=== PATIENT | female | born 1980 | race Caucasian/White ===

== ENCOUNTER 2017-10-03 17:38 | Emergency (ER) | payer OTHER ==
[2017-10-03 18:56] LABS: Urine Blood NEGATIVE (NEG); Urine Glucose NEGATIVE (NEG); Urine Protein NEGATIVE (NEG); Urine Specific Gravity 1.015 (1.005-1.030)
[2017-10-03] MEDS ORDERED: NA CHLORIDE 0.9% 1,000 ML ONE ×2 (18:58→22:35)
[2017-10-03] MEDS ORDERED: FENTANYL CITR 100 MCG/2 ML ONE (18:58)
[2017-10-03] MEDS ORDERED: ONDANSETRON 4 MG/2 ML VIAL ONE (18:58)
--- NOTE | 2017-10-03 19:01 | RAD REPORT ---
EXAM DESCRIPTION: VASCarotid Artery Bilateral10/03/2017 6:47 pm CLINICAL HISTORY: Syncope COMPARISON: None FINDINGS: The velocity of the right internal carotid artery equals 119 cm/sec. The right ICA/CCA rat io 1.2 The velocity of the left internal carotid artery equals 104 cm/sec. The left ICA/CCA ratio 1 Plaque is not visualized within the carotid arteries The vertebral arteries demonstrate antegrade flow IMPRESSION: Unremarkable exam
[2017-10-03 19:05] LABS: Absolute Lymphocytes (CBC) 2.9 K/uL (0.7-4.9); Absolute Monocytes 0.7 K/uL (0.1-1.3); Absolute Neutrophil 5.2 K/uL (1.8-8.0); Basophils % 0.3 % (0-1.3); Eosinophils % 2.3 % (0-4.4); Hematocrit 40.7 % (36.0-45.0); MCH 28.6 pg (27.0-35.0); MCV 82.9 fL (80-100); MPV 7.8 fL (7.6-11.3); RBC Red Blood Cell Count 4.91 M/uL (3.86-4.86)
--- NOTE | 2017-10-03 19:09 | RAD REPORT ---
EXAM DESCRIPTION: Cammy Single View10/03/2017 7:01 pm CLINICAL HISTORY: cough COMPARISON: 2008 FINDINGS: The lungs appear clear of acute infiltrate. The heart is normal size IMPRESSION: No acute abnormalities displayed
[2017-10-03 19:15] LABS: Protime INR 0.97
[2017-10-03 19:17] LABS: Bicarbonate 28 mEq/L (21-31); Glucose Level 107 mg/dL (65-120); Potassium 3.6 mEq/L (3.6-5.0); Sodium Level 137 mEq/L (135-145)
--- NOTE | 2017-10-03 19:20 | RAD REPORT ---
EXAM DESCRIPTION: CT - Head Brain Wo Cont - 10/03/2017 7:07 pm CLINICAL HISTORY: Headache/syncope COMPARISON: None. TECHNIQUE: Computed axial tomography of the head was obtained. IV contrast was not requested. All CT scans are performed using dose optimization technique as appropriate and may include automated exposure control or mA/KV adjustment according to patient size. FINDINGS: An intracranial bleed is not seen . The ventricles are normal in caliber. No extra-axial fluid collection is noted. Fluid within the sinuses/ mastoids is not seen. IMPRESSION: No acute intracranial abnormality is seen. If patient's symptoms persist MRI of the bra in would be recommended.
[2017-10-03 19:24] LABS: ALT/SGPT 22 IU/L (10-60); AST/SGOT 22 IU/L (10-42); Albumin 4.1 g/dL (3.2-5.5); Alkaline Phosphatase 80 IU/L (42-121); BUN Blood Urea Nitrogen 14 mg/dL (6-20); Bilirubin Direct < 0.1 mg/dL (0-0.2); Bilirubin Total 0.3 mg/dL (0.3-1.2); Creatine Phosphokinase 98 IU/L (22-269); Magnesium 1.9 mg/dL (1.8-2.5); Protein, Total 7.7 g/dL (6.0-8.3)
--- NOTE | 2017-10-03 19:32 | RAD REPORT ---
EXAM DESCRIPTION: CTHead angio10/03/2017 7:13 pm CLINICAL HISTORY: Syncope/headache COMPARISON: None TECHNIQUE: CT angiogram of the head was obtained. 50 cc Isovue 370 was intravenously. Coronal and sa gittal reconstruction was performed. All CT scans are performed using dose optimization technique as appropriate and may include automated exposure control or mA/KV adjustment according to patient size. FINDINGS: The basilar, internal carotid, anterior cerebral, middle cerebral and posterior cerebral a rteries are normal caliber. An aneurysm is not seen. A significant stenosis is not noted. IMPRESSION: Unremarkable CT angiogram head.
[2017-10-03] MEDS ORDERED: LIDOCAINE 1% MPF 2 ML AMPULE ONE (21:04)
[2017-10-03] MEDS ORDERED: AMLODIPINE 5 MG TAB ONE (21:05)
[2017-10-03 22:17] LABS: CSF Glucose 70 mg/dl (40-70)
[2017-10-03 22:18] LABS: Appearance CLEAR (CLEAR); Body Fluid Source CSF; Body Fluid WBC 1 /mm^3; Color of fluid Colorless (COLORLESS); Fluid Total Volume 2 ml
[2017-10-03 22:22] LABS: Appearance CLEAR (CLEAR); Body Fluid Source CSF; Color of fluid Colorless (COLORLESS)
[2017-10-03 22:29] LABS: Body Fluid WBC 2 /mm^3
[2017-10-04] MEDS ORDERED: FENTANYL CITR 100 MCG/2 ML ONE (00:03)
--- NOTE | 2017-10-04 00:53 | ER ---
Nurse's Notes [facility] Name: Carolin Torres Age: 37 yrs Sex: Female : 1980 Arrival Date: 10/03/2017 Time: 17:41 Bed 13 Private MD: Diagnosis: Essential (primary) hypertension;Headache Presentation: 10/03 17:44 Presenting complaint: Patient states: " I've been having headaches for 7 years and this ph is the worst one I've had. I'm hurting from my forehead alll the way back to my neck and the L side of my neck hurts like someone hit me in it." Pt reports headache since this morning, also c/o dizziness, denies N/V fever or recent illness. Transition of care: patient was not received from another setting of care. Onset of symptoms was October 03, 2017. Risk Assessment: Do you want to hurt yourself or someone else? Patient reports no desire to harm self or others. Initial Sepsis Screen: Does the patient meet any 2 criteria? No. Patient's initial sepsis screen is negative. Does the patient have a suspected source of infection? No. Patient's initial sepsis screen is negative. Care prior to arrival: None. 17:44 Method Of Arrival: Ambulatory ph 17:44 Acuity: NANCI 3 ph Triage Assessment: 17:53 Headache History: The patient has had previous headaches and this one is more severe tw2 than previous episodes. General: Appears in no apparent distress. Behavior is calm, cooperative, appropriate for age. Pain: Complains of pain in "headache" Pain currently is 10 out of 10 on a pain scale. Pain began years ago. Also complains of neck pain. EENT: No signs and/or symptoms were reported regarding the EENT system. Neuro: Level of Consciousness is awake, alert, obeys commands, Oriented to person, place, time, situation. Cardiovascular: Denies chest pain, shortness of breath, Heart tones S1 S2 Capillary refill < 3 seconds Patient's skin is warm and dry. Respiratory: Airway is patent Respiratory effort is even, unlabored, Respiratory pattern is regular, symmetrical, Breath sounds are clear bilaterally. GI: No signs and/or symptoms were reported involving the gastrointestinal system. : No signs and/or symptoms were reported regarding the genitourinary system. Derm: No signs and/or symptoms reported regarding the dermatologic system. Musculoskeletal: Range of motion: intact in all extremities. 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 - Social history:: Smoking status: Patient/guardian denies using tobacco. - Ebola Screening: : Patient denies travel to an Ebola-affected area in the 21 days before illness onset. - Family history:: not pertinent. Screenin:53 Abuse screen: Denies threats or abuse. Nutritional screening: No deficits noted. tw2 Tuberculosis screening: No symptoms or risk factors identified. Fall Risk None identified. Assessment: 18:00 General: Appears in no apparent distress. Behavior is cooperative, appropriate for age, tw2 crying. Pain: Complains of pain in right base of the skull and left base of the skull. Neuro: Level of Consciousness is awake, alert, obeys commands, Oriented to person, place, time, situation. Cardiovascular: Denies chest pain, shortness of breath, Heart tones S1 S2 Capillary refill < 3 seconds Patient's skin is warm and dry. Respiratory: Airway is patent Respiratory effort is even, unlabored, Respiratory pattern is regular, symmetrical, Breath sounds are clear bilaterally. GI: No signs and/or symptoms were reported involving the gastrointestinal system. : No signs and/or symptoms were reported regarding the genitourinary system. EENT: Reports "seeing white spots". Derm: Skin is intact, is healthy with good turgor. 18:38 Musculoskeletal: Range of motion: intact in all extremities. tw2 19:03 Reassessment: No changes from previously documented assessment. Patient and/or family tw2 updated on plan of care and expected duration. Pain level reassessed. Patient is alert, oriented x 3, equal unlabored respirations, skin warm/dry/pink. 19:04 Reassessment: pt taken to CT at this via w/c. tw2 22:06 Reassessment: Patient appears in no apparent distress at this time. Patient and/or mb3 family updated on plan of care and expected duration. Pain level reassessed. Patient is alert, oriented x 3, equal unlabored respirations, skin warm/dry/pink. Patient states feeling better. Patient states symptoms have improved. 23:42 Reassessment: Patient appears in no apparent distress at this time. Patient and/or mb3 family updated on plan of care and expected duration. Pain level reassessed. Patient is alert, oriented x 3, equal unlabored respirations, skin warm/dry/pink. Patient states feeling better. Patient states symptoms have improved. Vital Signs: 17:46 BP 196 / 103; Pulse 78; Resp 18; Temp 98.2; Pulse Ox 98% on R/A; Weight 81.65 kg; ph Height 5 ft. 1 in. (154.94 cm); Pain 8/10; 19:03 BP 186 / 90; Pulse 76; Resp 17; Pulse Ox 98% on R/A; tw2 21:15 BP 165 / 90; Pulse 68; Resp 18; Pulse Ox 100% on R/A; mb3 22:04 BP 140 / 83; Pulse 68; Resp 16; Pulse Ox 98% on R/A; mb3 23:40 BP 120 / 79; Pulse 65; Resp 16; Pulse Ox 98% on R/A; mb3 10/04 00:18 BP 127 / 69; Pulse 73; Resp 16; Pulse Ox 95% on R/A; mb3 10/03 17:46 Body Mass Index 34.01 (81.65 kg, 154.94 cm) ph ED Course: 10/03 17:41 Patient arrived in ED. es 17:46 Triage completed. ph 17:47 Arm band placed on. ph 17:50 Nighat Waters RN is Primary Nurse. tw2 18:10 Anselmo Williamson MD is Attending Physician. harvinder 18:19 Bed in low position. Call light in reach. Pulse ox on. NIBP on. tw2 18:33 Radiology exam delayed due to lab results not completed at this time. test eh not completed at this time. 18:47 US Carotid Artery Bilateral In Process Unspecified. EDMS 18:57 X-ray completed. Portable x-ray completed in exam room. Patient tolerated procedure ag1 well. 18:57 XRAY Chest (1 view) In Process Unspecified. EDMS 18:58 Patient has correct armband on for positive identification. Placed in gown. Call light mh5 in reach. Warm blanket given. Pulse ox on. NIBP on. Cardiac monitoring not applicable on this patient. 18:58 EKG done, by ED staff, reviewed by Anselmo Williamson MD. 5 19:05 Report given to JOSHUA Lerma. tw2 19:07 CT Head Brain wo Cont In Process Unspecified. EDMS 19:14 Head angio In Process Unspecified. EDMS 22:00 Assist provider with lumbar puncture: Set up LP tray. Performed by Anselmo Williamson MD ak1 CSF is clear. Sample collected. Sample sent to lab. Puncture site dressed with band aid, Procedure was successful. Patient tolerated well. 22:23 Jeferson Mcgarry NP is PHCP. pm1 10/04 00:52 Pedro Dale MD is Referral Physician. pm1 01:17 IV discontinued, intact, bleeding controlled, No redness/swelling at site. Pressure mb3 dressing applied. Administered Medications: 10/03 18:56 Drug: Zofran 4 mg Route: IVP; Site: left antecubital; 10/04 01:13 Follow up: Response: No adverse reaction mb3 10/03 18:58 Drug: fentaNYL (PF) 50 mcg Route: IVP; Site: left antecubital; tw10/04 01:13 Follow up: Response: No adverse reaction mb3 10/03 19:01 Drug: NS 0.9% 1000 ml Route: IV; Rate: 1 bolus; Site: left antecubital; tw10/04 01:14 Follow up: Response: No adverse reaction; IV Status: Completed infusion; IV Intake: mb3 1000ml 10/03 21:14 Drug: Norvasc 10 mg Route: PO; mb3 10/04 01:12 Follow up: Response: No adverse reaction mb3 10/03 22:40 Drug: NS 0.9% 1000 ml Route: IV; Rate: 1 bolus; Site: left antecubital; mb3 10/04 01:11 Follow up: Response: No adverse reaction; IV Status: Completed infusion; IV Intake: mb3 1000ml 00:05 Drug: fentaNYL (PF) 50 mcg Route: IVP; Site: left antecubital; mb3 01:04 Follow up: Response: No adverse reaction; Pain is decreased mb3 01:10 Follow up: Response: No adverse reaction mb3 Intake: 01:11 IV: 1000ml; Total: 1000ml. mb3 01:14 IV: 1000ml; Total: 2000ml. mb3 Outcome: 00:52 Discharge ordered by MD. pm1 01:16 Discharged to home ambulatory. mb3 01:16 Condition: stable 01:16 Discharge instructions given to patient, Instructed on discharge instructions, follow up and referral plans. medication usage, Demonstrated understanding of instructions, follow-up care, medications, Prescriptions given X 3. 01:19 Patient left the ED. mb3 Addendum: 10/06/2017 09:19 Addendum: Culture Results: Positive urine culture. Prescription for Levaquin called in a a5 to [facility] in [place], [place] per pt's request. Patient was not prescribed antibiotics at discharge. Report given to DEVEN for further evaluation and then to van loader for follow up with patient. Signatures: Dispatcher [employer] Anselmo Denton MD MD cha Salyer, Mahendra Jeff Audri, RN RN aa5 Lily Covington RN RN ak1 Linda Martinez RN RN Chrissie Mercedes ag1 Jeferson Mcgarry, RENUKA COVER CUTTER pm1 Nighat Waters RN RN tw2 Roselyn Partida 5 Florentin Elkins, RN RN mb3 Corrections: (The following items were deleted from the chart) 10/03 18:50 18:38 General: Appears in no apparent distress. Behavior is calm, cooperative, tw2 appropriate for age, tw2 18:50 18:38 Pain: Complains of pain in right base of the skull and left base of the skull tw2 tw2 18:50 18:38 Neuro: Level of Consciousness is awake, alert, obeys commands, Oriented to tw2 person, place, time, situation, tw2 18:50 18:38 Cardiovascular: Denies chest pain, shortness of breath, Heart tones S1 S2 tw2 Capillary refill < 3 seconds Patient's skin is warm and dry. tw2 18:50 18:38 Respiratory: Airway is patent Respiratory effort is even, unlabored, Respiratory tw2 pattern is regular, symmetrical, Breath sounds are clear bilaterally. tw2 18:50 18:38 GI: No signs and/or symptoms were reported involving the gastrointestinal system. tw2 tw2 18:50 18:38 : No signs and/or symptoms were reported regarding the genitourinary system. tw2tw2 18:50 18:38 EENT: Reports "seeing white spots". tw2 tw2 18:50 18:38 Derm: Skin is intact, is healthy with good turgor, tw2 tw2 19:04 18:00 General: Appears in no apparent distress. Behavior is calm, cooperative, tw2 appropriate for age, tw2
--- NOTE | 2017-10-04 00:53 | EDPHYS ---
Physician Documentation [facility] Name: Carolin Torres Age: 37 yrs Sex: Female : 1980 Arrival Date: 10/03/2017 Time: 17:41 Bed 13 Private MD: ED Physician Anselmo Williamson HPI: 10/03 18:26 This 37 yrs old Female presents to ER via Ambulatory with complaints of harvinder Headache, Neck Pain, <24hrs Old. 18:26 The patient complains of pain to the top of head, forehead, left frontal area, left harvinder side of the back of head, left occipital area, left base of the skull, right frontal area, right side of the back of head, right occipital area and right base of the skull. The patient describes the headache as constant. Onset: The symptoms/episode began/occurred this morning. Associated signs and symptoms: Pertinent positives: nausea, vomiting. Severity of symptoms: At its worst the pain was severe, in the emergency department the pain is actually worse. Headache History: The patient has had previous headaches and this one is similar to previous episodes, and this one is more severe than previous episodes. The symptoms are alleviated by nothing. the symptoms are aggravated by movement. The patient has experienced similar episodes in the past, several times. 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 - Social history:: Smoking status: Patient/guardian denies using tobacco. - Ebola Screening: : Patient denies travel to an Ebola-affected area in the 21 days before illness onset. - Family history:: not pertinent. ROS: 18:26 Constitutional: Negative for fever, chills, and weight loss, Eyes: Negative for injury, harvinder pain, redness, and discharge, ENT: Negative for injury, pain, and discharge, Neck: Negative for injury, pain, and swelling, Cardiovascular: Negative for chest pain, palpitations, and edema, Respiratory: Negative for shortness of breath, cough, wheezing, and pleuritic chest pain, Abdomen/GI: Negative for abdominal pain, nausea, vomiting, diarrhea, and constipation, Back: Negative for injury and pain, : Negative for injury, bleeding, discharge, and swelling, MS/Extremity: Negative for injury and deformity, Skin: Negative for injury, rash, and discoloration, Neuro: Negative for headache, weakness, numbness, tingling, and seizure, Psych: Negative for depression, anxiety, suicide ideation, homicidal ideation, and hallucinations, Allergy/Immunology: Negative for hives, rash, and allergies, Endocrine: Negative for neck swelling, polydipsia, polyuria, polyphagia, and marked weight changes. 18:26 Neck: Positive for pain at rest, Negative for stiffness. 18:26 Neuro: Positive for Exam: 18:26 Constitutional: This is a well developed, well nourished patient who is awake, alert, harvinder and in no acute distress. Head/Face: Normocephalic, atraumatic. Eyes: Pupils equal round and reactive to light, extra-ocular motions intact. Lids and lashes normal. Conjunctiva and sclera are non-icteric and not injected. Cornea within normal limits. Periorbital areas with no swelling, redness, or edema. ENT: Nares patent. No nasal discharge, no septal abnormalities noted. Tympanic membranes are normal and external auditory canals are clear. Oropharynx with no redness, swelling, or masses, exudates, or evidence of obstruction, uvula midline. Mucous membranes moist. Neck: Trachea midline, no thyromegaly or masses palpated, and no cervical lymphadenopathy. Supple, full range of motion without nuchal rigidity, or vertebral point tenderness. No Meningismus. Chest/axilla: Normal chest wall appearance and motion. Nontender with no deformity. No lesions are appreciated. Cardiovascular: Regular rate and rhythm with a normal S1 and S2. No gallops, murmurs, or rubs. Normal PMI, no JVD. No pulse deficits. Respiratory: Lungs have equal breath sounds bilaterally, clear to auscultation and percussion. No rales, rhonchi or wheezes noted. No increased work of breathing, no retractions or nasal flaring. Abdomen/GI: Soft, non-tender, with normal bowel sounds. No distension or tympany. No guarding or rebound. No evidence of tenderness throughout. Back: No spinal tenderness. No costovertebral tenderness. Full range of motion. Skin: Warm, dry with normal turgor. Normal color with no rashes, no lesions, and no evidence of cellulitis. MS/ Extremity: Pulses equal, no cyanosis. Neurovascular intact. Full, normal range of motion. Neuro: Awake and alert, GCS 15, oriented to person, place, time, and situation. Cranial nerves II-XII grossly intact. Motor strength 5/5 in all extremities. Sensory grossly intact. Cerebellar exam normal. Normal gait. Psych: Awake, alert, with orientation to person, place and time. Behavior, mood, and affect are within normal limits. 22:01 Neck: ROM/movement: is normal, no acute changes, Meningeal signs: are not present, [facility] Kernig's sign is negative, Brudzinski's sign is negative. Vital Signs: 17:46 BP 196 / 103; Pulse 78; Resp 18; Temp 98.2; Pulse Ox 98% on R/A; Weight 81.65 kg; ph Height 5 ft. 1 in. (154.94 cm); Pain 8/10; 19:03 BP 186 / 90; Pulse 76; Resp 17; Pulse Ox 98% on R/A; tw2 21:15 BP 165 / 90; Pulse 68; Resp 18; Pulse Ox 100% on R/A; mb3 22:04 BP 140 / 83; Pulse 68; Resp 16; Pulse Ox 98% on R/A; mb3 23:40 BP 120 / 79; Pulse 65; Resp 16; Pulse Ox 98% on R/A; mb3 10/04 00:18 BP 127 / 69; Pulse 73; Resp 16; Pulse Ox 95% on R/A; mb3 10/03 17:46 Body Mass Index 34.01 (81.65 kg, 154.94 cm) ph Procedures: 10/03 21:58 Lumbar Puncture: Patient placed in left lateral decubitus position. Collected 20 ml's harvinder of clear fluid. Puncture site dressed with band aid, Patient tolerated well. MDM: 18:10 Patient medically screened. [facility] 18:28 Data reviewed: vital signs, nurses notes, lab test result(s), EKG, radiologic studies, harvinder CT scan, plain films. 10/04 00:52 Counseling: I had a detailed discussion with the patient and/or guardian regarding: the pm1 historical points, exam findings, and any diagnostic results supporting the discharge/admit diagnosis, lab results, radiology results, the need for outpatient follow up, to return to the emergency department if symptoms worsen or persist or if there are any questions or concerns that arise at home. 10/03 18:26 Order name: Basic Metabolic Panel; Complete Time: 19:45 [facility] 10/03 18:26 Order name: BNP; Complete Time: 19:45 [facility] 10/03 18:26 Order name: CBC with Diff; Complete Time: 19:45 [facility] 10/03 18:26 Order name: Ckmb; Complete Time: 19:45 [facility] 10/03 18:26 Order name: CPK; Complete Time: 19:45 [facility] 10/03 18:26 Order name: LFT's; Complete Time: 19:45 [facility] 10/03 18:26 Order name: Magnesium; Complete Time: 19:45 [facility] 10/03 18:26 Order name: PT-INR; Complete Time: 19:45 [facility] 10/03 18:26 Order name: Ptt, Activated; Complete Time: 19:45 [facility] 10/03 18:26 Order name: Troponin (emerg Dept Use Only); Complete Time: 19:45 [facility] 10/03 18:26 Order name: Urine Culture [facility] 10/03 18:53 Order name: Urine Dipstick--Ancillary (enter results); Complete Time: 19:45 bd 10/03 18:53 Order name: Urine --Ancillary (enter results); Complete Time: 19:45 10/03 22:06 Order name: CSF Glucose; Complete Time: 23:23 [facility] 10/03 18:26 Order name: XRAY Chest (1 view); Complete Time: 19:45 [facility] 10/03 18:26 Order name: CT Head Brain wo Cont; Complete Time: 19:45 [facility] 10/03 18:26 Order name: US Carotid Artery Bilateral; Complete Time: 19:45 [facility] 10/03 18:27 Order name: Head angio; Complete Time: 19:45 [facility] 10/03 22:06 Order name: CSF Total Protein; Complete Time: 23:23 [facility] 10/03 22:06 Order name: Body Fluid Cell Count; Complete Time: 23:23 [facility] 10/03 22:06 Order name: CSF SPECIMEN; Complete Time: 23:23 [facility] 10/03 22:06 Order name: Cell Count Profile; Complete Time: 23:23 [facility] 10/03 22:06 Order name: CSF Culture [facility] 10/03 22:06 Order name: CSF Bacterial Antigens (Tube 1 [facility] 10/03 18:26 Order name: EKG; Complete Time: 18:26 [facility] 10/03 18:26 Order name: Cardiac monitoring; Complete Time: 19:02 [facility] 10/03 18:26 Order name: EKG - Nurse/Tech; Complete Time: 19:02 [facility] 10/03 18:26 Order name: IV Saline Lock; Complete Time: 19:03 [facility] 10/03 18:26 Order name: Labs collected and sent; Complete Time: 19:02 [facility] 10/03 18:26 Order name: O2 Per Protocol; Complete Time: 18:36 [facility] 10/03 18:26 Order name: O2 Sat Monitoring; Complete Time: 18:35 [facility] 10/03 18:26 Order name: Urine Dipstick-Ancillary (obtain specimen); Complete Time: 18:29 [facility] 10/03 18:26 Order name: Urine Test (obtain specimen); Complete Time: 18:29 [facility] 10/03 18:26 Order name: Lumbar Puncture Consent; Complete Time: 19:01 [facility] Administered Medications: 10/03 18:56 Drug: Zofran 4 mg Route: IVP; Site: left antecubital; 10/04 01:13 Follow up: Response: No adverse reaction [facility] 10/03 18:58 Drug: fentaNYL (PF) 50 mcg Route: IVP; Site: left antecubital; 10/04 01:13 Follow up: Response: No adverse reaction [facility] 10/03 19:01 Drug: NS 0.9% 1000 ml Route: IV; Rate: 1 bolus; Site: left antecubital; 10/04 01:14 Follow up: Response: No adverse reaction; IV Status: Completed infusion; IV Intake: mb3 1000ml 10/03 21:14 Drug: Norvasc 10 mg Route: PO; 10/04 01:12 Follow up: Response: No adverse reaction 10/03 22:40 Drug: NS 0.9% 1000 ml Route: IV; Rate: 1 bolus; Site: left antecubital; 10/04 01:11 Follow up: Response: No adverse reaction; IV Status: Completed infusion; IV Intake: mb3 1000ml 00:05 Drug: fentaNYL (PF) 50 mcg Route: IVP; Site: left antecubital; mb3 01:04 Follow up: Response: No adverse reaction; Pain is decreased mb3 01:10 Follow up: Response: No adverse reaction mb3 Disposition: 09:29 Co-signature as Attending Physician, Anselmo Williamson MD I agree with the assessment and harvinder plan of care. Disposition: 10/04/17 00:52 Discharged to Home. Impression: Essential (primary) hypertension, Headache. - Condition is Stable. - Discharge Instructions: Spinal Headache, Migraine Headache, Hypertension, Hypertension, Dzhh-yr-[id number], Migraine Headache, Cvkn-[id number]. - Prescriptions for Fioricet with Codeine 50- 325-40-30 mg Oral capsule - take 1 capsule by ORAL route every 4 hours as needed not to exceed 6 capsules per 24hrs; 26 capsule. Norvasc 5 mg Oral Tablet - take 1 tablet by ORAL route once daily; 20 tablet. Zofran 4 mg Oral Tablet - take 1 tablet by ORAL route every 12 hours As needed; 14 tablet. - Medication Reconciliation Form, Thank You Letter, Antibiotic Education, Prescription Opioid Use form. - Follow up: Private Physician; When: 2 - 3 days; Reason: Recheck today's complaints, Continuance of care, Re-evaluation by your physician. Follow up: Pedro Dale; When: 2 - 3 days; Reason: Recheck today's complaints, Re-evaluation by your physician. - Problem is new. - Symptoms have improved. Signatures: Dispatcher [employer] EDAnselmo Ocampo MD MD cha Hall, Patricia, RN RN ph Marinas, Patrick, RENUKA VENEER CLIPPER pm1 Nighat Waters RN RN tw2 Florentin Eklins RN RN mb3 Corrections: (The following items were deleted from the chart) 01:19 00:52 10/04/2017 00:52 Discharged to Home. Impression: Essential (primary) mb3 hypertension; Headache. Condition is Stable. Discharge Instructions: Spinal Headache, Migraine Headache, Hypertension, Hypertension, [id number], Migraine Headache, Xqcx-ek-[id number]. Prescriptions for Fioricet with Codeine 32-652-67-30 mg Oral capsule - take 1 capsule by ORAL route every 4 hours as needed not to exceed 6 capsules per 24hrs; 26 capsule, Norvasc 5 mg Oral Tablet - take 1 tablet by ORAL route once daily; 20 tablet, Zofran 4 mg Oral Tablet - take 1 tablet by ORAL route every 12 hours As needed; 14 tablet. and Forms are Medication Reconciliation Form, Thank You Letter, Antibiotic Education, Prescription Opioid Use. Follow up: Private Physician; When: 2 - 3 days; Reason: Recheck today's complaints, Continuance of care, Re-evaluation by your physician. Follow up: Pedro Dale; When: 2 - 3 days; Reason: Recheck today's complaints, Re-evaluation by your physician. Problem is new. Symptoms have improved. pm1
--- NOTE | 2017-10-04 06:32 | EKG ---
Test Date: 2017-10-03 Test Time: 18:49:00 Hazmat Cdl Driver: TEDDY MEASUREMENT RESULTS: Intervals: Rate: 80 NV: 156 QRSD: 96 QT: 368 QTc: 424 Sharon: P: 43 NV: 156 QRS: 66 T: 43 INTERPRETIVE STATEMENTS: Normal sinus rhythm Normal ECG Compared to ECG 03/24/2009 16:03:15 No significant changes Electronically Signed On 10-04-17 06:31:32 CDT by Dakota Werner
== END 2017-10-04 01:19 | disposition home or self-care (01) ==
LOC: ER 17:38
DX: I10 Essential (primary) hypertension (principal)
CPT/HCPCS: 36415; 62270; 70450; 70496; 71045; 80048; 80076; 81003; 81025; 82550; 82553; 82945; 83735; 83880; 84157; 84484; 85025; 85610; 85730; 86403; 87070; 87077; 87086; 87088; 87186; 89050; 93005; 93880; 96361; 96374; 96375; 99285; J2001; J2405; J3010; J7030; Q9967

== ENCOUNTER 2017-10-06 17:39 | Observation (INO) | payer OTHER ==
[2017-10-06] MEDS ORDERED: ONDANSETRON 4 MG/2 ML VIAL ONE ×2 (18:07→20:40)
[2017-10-06] MEDS ORDERED: Levofloxacin500mg IV 500 MG/100 ML BAG IV ONE (18:08)
[2017-10-06] MEDS ORDERED: NA CHLORIDE 0.9% 1,000 ML ONE ×2 (18:08→19:56)
[2017-10-06] MEDS ORDERED: FENTANYL CITR 100 MCG/2 ML ONE (18:30)
[2017-10-06 18:32] LABS: Absolute Lymphocytes (CBC) 1.7 K/uL (0.7-4.9); Absolute Monocytes 0.4 K/uL (0.1-1.3); Absolute Neutrophil 11.8 K/uL (1.8-8.0); Basophils % 0.2 % (0-1.3); Eosinophils % 0.1 % (0-4.4); Lymphocytes % 12.2 % (15.3-44.8); MCH 28.1 pg (27.0-35.0); MCV 83.1 fL (80-100); MPV 7.8 fL (7.6-11.3); Monocytes % 2.6 % (3.3-12.3); RBC Red Blood Cell Count 5.05 M/uL (3.86-4.86)
[2017-10-06 18:42] LABS: Potassium 3.3 mEq/L (3.6-5.0)
[2017-10-06] MEDS ORDERED: KETOROLAC 30 MG/ML INJ ONE (21:03)
[2017-10-06] MEDS ORDERED: PROMETHAZINE 25 MG/ML VIAL ONE (21:03)
--- NOTE | 2017-10-06 21:06 | ER ---
Nurse's Notes [facility] Name: Carolin Torres Age: 37 yrs Sex: Female : 1980 Arrival Date: 10/06/2017 Time: 17:41 Bed 16 Private MD: None, None Diagnosis: Headache-intractable;Vomiting, unspecified Presentation: 10/06 17:51 Presenting complaint: Patient states: Reports severe headache since LP 2 days ago with aj N/V. Transition of care: patient was not received from another setting of care. Onset of symptoms was October 04, 2017. Care prior to arrival: None. 17:51 Method Of Arrival: Ambulatory 17:51 Acuity: NANCI 3 aj 18:10 Risk Assessment: Do you want to hurt yourself or someone else? Patient reports no jl7 desire to harm self or others. Initial Sepsis Screen: Does the patient meet any 2 criteria? No. Patient's initial sepsis screen is negative. Does the patient have a suspected source of infection? Yes: Dysuria/Frequency/Urgency/UTI. Triage Assessment: 17:52 Headache History: The patient has had previous headaches and this one is different than aj previous episodes, and this one is more severe than previous episodes. General: Appears in no apparent distress. uncomfortable, Behavior is calm, cooperative, appropriate for age, crying. Pain: Complains of pain in face, scalp and right lower quadrant Pain currently is 10 out of 10 on a pain scale. Also complains of nausea. Neuro: Level of Consciousness is awake, alert, obeys commands, Oriented to person, place, time, situation, Appropriate for age Reports headache. Respiratory: Airway is patent Respiratory effort is even, unlabored, Respiratory pattern is regular, symmetrical. GI: Reports lower abdominal pain, diarrhea, nausea, vomiting. Derm: Skin is intact, is healthy with good turgor, Skin is pink, warm \T\ dry. normal. HEAD OF STRATEGY: 17:52 LMP 09/20/2017 aj Historical: - Allergies: 17:52 No Known Allergies; aj - Home Meds: 17:52 labetalol Oral [Active]; aj - PMHx: 17:52 Hypertension; aj - PSHx: 17:52 None; aj - Immunization history:: Adult Immunizations up to date. - Social history:: Smoking status: Patient/guardian denies using tobacco. - Ebola Screening: : Patient negative for fever greater than or equal to 101.5 degrees Fahrenheit, and additional compatible Ebola Virus Disease symptoms Patient denies exposure to infectious person Patient denies travel to an Ebola-affected area in the 21 days before illness onset No symptoms or risks identified at this time. Screenin:10 Abuse screen: Denies threats or abuse. Denies injuries from another. Nutritional jl7 screening: No deficits noted. Tuberculosis screening: No symptoms or risk factors identified. Fall Risk IV access (20 points). Total Rice Fall Scale indicates No Risk (0-24 pts). Assessment: 18:10 General: Appears in no apparent distress. uncomfortable, Behavior is calm, cooperative, jl7 appropriate for age. Pain: Complains of pain in occipital area Pain currently is 10 out of 10 on a pain scale. Quality of pain is described as throbbing, Pain began 2-3 days ago. Is continuous. Neuro: Level of Consciousness is awake, alert, obeys commands, Oriented to person, place, time, situation. Cardiovascular: Patient's skin is warm and dry. Respiratory: Airway is patent Respiratory effort is even, unlabored, Respiratory pattern is regular, symmetrical. GI: Reports nausea, vomiting, 2 days. : No signs and/or symptoms were reported regarding the genitourinary system. EENT: No signs and/or symptoms were reported regarding the EENT system. Derm: Skin is pink, warm \T\ dry. Musculoskeletal: No signs and/or symptoms reported regarding the musculoskeletal system. 19:42 General: Appears uncomfortable, Behavior is calm, cooperative, appropriate for age. ea Pain: Complains of pain in right lower quadrant Pain currently is 8 out of 10 on a pain scale. Quality of pain is described as aching, Pain began 2-3 days ago. Is continuous. Neuro: Level of Consciousness is awake, alert, obeys commands, Oriented to person, place, time, situation. Cardiovascular: Patient's skin is warm and dry. Respiratory: Airway is patent Respiratory effort is even, unlabored, Respiratory pattern is regular, symmetrical. GI: Reports nausea, vomiting. : No signs and/or symptoms were reported regarding the genitourinary system. EENT: No signs and/or symptoms were reported regarding the EENT system. Derm: Skin is pink, warm \T\ dry. Musculoskeletal: No signs and/or symptoms reported regarding the musculoskeletal system. 20:05 Reassessment: Patient and/or family updated on plan of care and expected duration. Pain ea level reassessed. Patient is alert, oriented x 3, equal unlabored respirations, skin warm/dry/pink. Pt verbalized the understanding to call once she finished drinking the fluids. at bedside. 21:25 Reassessment: Patient and/or family updated on plan of care and expected duration. Pain ea level reassessed. Patient is alert, oriented x 3, equal unlabored respirations, skin warm/dry/pink. at bedside. Pt reports pain has decreased. 21:30 Reassessment: Pt vomited x1 after PO challenge, provider notified, medication order ea obtained, medication administered, pt tolerated well. 22:15 Reassessment: Dr. Carvajal at bedside updating on POC. ea 22:20 Reassessment: Reassessment: Dr. Carvajal at bedside for blood patch procedure. ea 22:40 Reassessment: Patient is alert, oriented x 3, equal unlabored respirations, skin ea warm/dry/pink. Pt tolerated procedure well. Instructed per physician to lie flat for 30 min. Then sit up 45 degrees to 90 degrees to stand. 23:17 Reassessment: Patient and/or family updated on plan of care and expected duration. Pain ea level reassessed. Patient is alert, oriented x 3, equal unlabored respirations, skin warm/dry/pink. Pt reports headache improved. remains at bedside. 23:23 Reassessment: Patient and/or family updated on plan of care and expected duration. Pain ea level reassessed. Patient is alert, oriented x 3, equal unlabored respirations, skin warm/dry/pink. Report called to Fauzia LEWIS on second floor. Vital Signs: 17:52 BP 150 / 108; Pulse 87; Resp 19; Temp 98.2; Pulse Ox 97% on R/A; Weight 81.65 kg; aj Height 5 ft. 1 in. (154.94 cm); Pain 10/10; 19:20 BP 174 / 100; Pulse 94; Resp 16; Pulse Ox 100% ; Pain 5/10; jl7 20:08 BP 143 / 77; Pulse 88; Resp 18; Pulse Ox 98% on R/A; ea 21:57 BP 167 / 90; Pulse 87; Resp 18; Temp 97.2(O); Pulse Ox 98% ; Pain 5/10; ea 23:16 BP 163 / 87; Pulse 80; Resp 18; Temp 97.6(O); Pulse Ox 99% ; Pain 3/10; ea 17:52 Body Mass Index 34.01 (81.65 kg, 154.94 cm) aj Navin Coma Score: 18:22 Eye Response: spontaneous(4). Verbal Response: oriented(5). Motor Response: obeys snw commands(6). Total: 15. ED Course: 17:41 Patient arrived in ED. mr 17:42 None, None is Private Physician. mr 17:52 Triage completed. aj 17:52 Arm band placed on right wrist. Patient placed in an exam room. aj 17:58 [facility] snw 17:58 Maury Benitez MD is Attending Physician. snw 18:03 Jeremías Cota RN is Primary Nurse. jl7 18:10 Patient has correct armband on for positive identification. Bed in low position. Call jl7 light in reach. Side rails up X 1. Pulse ox on. NIBP on. Warm blanket given. 18:30 Inserted saline lock: 20 gauge in left antecubital area, using aseptic technique. Blood jl collected. 18:30 Initial lab(s) drawn, by or, sent to lab. First set of blood cultures drawn by or. jl7 19:20 Report given to JOSHUA Lewis. jl7 21:04 Khurram Childs MD is Hospitalizing Provider. snw 21:48 Patient admitted, IV remains in place. ea 22:[address] Carvajal with Lumbar blood patch: set up LP tray. Puncture site dressed with ea procedure successful. Pt tolerated well. Instructions for pt to lie flat for 30 minutes and then sit at 45 degree to 90 degree angle to stand. Administered Medications: 18:15 Drug: NS 0.9% 1000 ml Route: IV; Rate: 1 bolus; Site: left antecubital; jl7 21:27 Follow up: Response: No adverse reaction; IV Status: Completed infusion; IV Intake: ea 1000ml 18:16 Drug: LevaQUIN 500 mg Volume: 100 ml; Route: IVPB; Infused Over: 60 mins; Site: left jl7 antecubital; 19:45 Follow up: Response: No adverse reaction; IV Status: Completed infusion ea 18:20 Drug: Zofran 4 mg Route: IVP; Site: left antecubital; jl7 19:43 Follow up: Response: No adverse reaction; Pain is decreased ea 18:30 Drug: fentaNYL (PF) 50 mcg Route: IVP; Site: left antecubital; jl7 19:43 Follow up: Response: No adverse reaction; Pain is decreased ea 19:58 Drug: NS 0.9% 1000 ml Route: IV; Rate: 1 bolus; Site: left antecubital; ea 21:42 Follow up: Response: No adverse reaction; IV Status: Completed infusion; IV Intake: ea 1000ml 21:08 Drug: TORadol 30 mg Route: IVP; Site: left antecubital; ea 21:42 Follow up: Response: No adverse reaction; Pain is decreased ea 21:08 Drug: Phenergan 12.5 mg Route: IVP; Site: left antecubital; ea 21:43 Follow up: Response: No adverse reaction; Marked relief of symptoms ea Intake: 21:27 IV: 1000ml; Total: 1000ml. ea 21:42 IV: 1000ml; Total: 2000ml. ea Outcome: 21:05 Decision to Hospitalize by Provider. snw 21:30 Admitted to Med/surg accompanied by tech, via wheelchair, room 212, Report called to martir Cage RN 21:30 Condition: stable 21:30 Instructed on the need for admit. 23:41 Patient left the ED. martir Signatures: Mary Love RN Radha Marx, GRAIN DISTRIBUTOR-C GRAIN DISTRIBUTOR-Csnw Roselyn Pearson Jeremías Cota RN RN jl7 Debbie Dash RN RN ea Corrections: (The following items were deleted from the chart) 21:46 20:30 Reassessment: Pt vomited x1 after PO challenge, provider notified, medication ea order obtained, medication administered, pt tolerated well. ea
--- NOTE | 2017-10-06 21:06 | EDPHYS ---
Physician Documentation [facility] Name: Carolin Torres Age: 37 yrs Sex: Female : 1980 Arrival Date: 10/06/2017 Time: 17:41 Bed 16 Private MD: None, None ED Physician Maury Benitez HPI: 10/06 18:22 This 37 yrs old Female presents to ER via Ambulatory with complaints of snw Headache, Vomiting, Dizziness, Abdominal Pain. 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 - Social history:: Smoking status: Patient/guardian denies using tobacco. - Ebola Screening: : Patient negative for fever greater than or equal to 101.5 degrees Fahrenheit, and additional compatible Ebola Virus Disease symptoms Patient denies exposure to infectious person Patient denies travel to an Ebola-affected area in the 21 days before illness onset No symptoms or risks identified at this time. ROS: 18:21 Eyes: Negative for injury, pain, redness, and discharge, ENT: Negative for injury, snw pain, and discharge, Neck: Negative for injury, pain, and swelling, Cardiovascular: Negative for chest pain, palpitations, and edema, Respiratory: Negative for shortness of breath, cough, wheezing, and pleuritic chest pain. 18:21 Back: Negative for injury and pain, : Negative for injury, bleeding, discharge, and swelling, MS/Extremity: Negative for injury and deformity, Skin: Negative for injury, rash, and discoloration. 18:21 Constitutional: Positive for body aches. 18:21 Abdomen/GI: Positive for nausea, vomiting, abdominal cramps. 18:21 Neuro: Positive for headache. Exam: 18:19 Head/Face: Normocephalic, atraumatic. Eyes: Pupils equal round and reactive to light, snw extra-ocular motions intact. Lids and lashes normal. Conjunctiva and sclera are non-icteric and not injected. Cornea within normal limits. Periorbital areas with no swelling, redness, or edema. ENT: Nares patent. No nasal discharge, no septal abnormalities noted. Tympanic membranes are normal and external auditory canals are clear. Oropharynx with no redness, swelling, or masses, exudates, or evidence of obstruction, uvula midline. Mucous membranes moist. Neck: Trachea midline, no thyromegaly or masses palpated, and no cervical lymphadenopathy. Supple, full range of motion without nuchal rigidity, or vertebral point tenderness. No Meningismus. Chest/axilla: Normal chest wall appearance and motion. Nontender with no deformity. No lesions are appreciated. Cardiovascular: Regular rate and rhythm with a normal S1 and S2. No gallops, murmurs, or rubs. Normal PMI, no JVD. No pulse deficits. Respiratory: Lungs have equal breath sounds bilaterally, clear to auscultation and percussion. No rales, rhonchi or wheezes noted. No increased work of breathing, no retractions or nasal flaring. Back: No spinal tenderness. No costovertebral tenderness. Full range of motion. 18:19 Skin: Warm, dry with normal turgor. Normal color with no rashes, no lesions, and no evidence of cellulitis. MS/ Extremity: Pulses equal, no cyanosis. Neurovascular intact. Full, normal range of motion. Psych: Awake, alert, with orientation to person, place and time. Behavior, mood, and affect are within normal limits. 18:19 Constitutional: The patient appears alert, awake, anxious, uncomfortable. 18:19 Abdomen/GI: Inspection: abdomen appears normal, Bowel sounds: normal, Palpation: mild abdominal tenderness, in the right lower quadrant. 18:19 Neuro: Orientation: is normal, Mentation: is normal, Memory: is normal, seizure activity, is not displayed by the patient, Abnormal movements: there are no abnormal movements. Vital Signs: 17:52 BP 150 / 108; Pulse 87; Resp 19; Temp 98.2; Pulse Ox 97% on R/A; Weight 81.65 kg; aj Height 5 ft. 1 in. (154.94 cm); Pain 10/10; 19:20 BP 174 / 100; Pulse 94; Resp 16; Pulse Ox 100% ; Pain 5/10; jl7 20:08 BP 143 / 77; Pulse 88; Resp 18; Pulse Ox 98% on R/A; ea 21:57 BP 167 / 90; Pulse 87; Resp 18; Temp 97.2(O); Pulse Ox 98% ; Pain 5/10; ea 23:16 BP 163 / 87; Pulse 80; Resp 18; Temp 97.6(O); Pulse Ox 99% ; Pain 3/10; ea 17:52 Body Mass Index 34.01 (81.65 kg, 154.94 cm) aj [place] Coma Score: 18:22 Eye Response: spontaneous(4). Verbal Response: oriented(5). Motor Response: obeys snw commands(6). Total: 15. MDM: 17:58 Patient medically screened. snw 18:22 Data reviewed: vital signs, nurses notes. Data interpreted: Pulse oximetry: on room air snw is 97 %. Interpretation: normal. Counseling: I had a detailed discussion with the patient and/or guardian regarding: the historical points, exam findings, and any diagnostic results supporting the discharge/admit diagnosis, the presence of at least one elevated blood pressure reading (>120/80) during this emergency department visit, lab results, radiology results. ED course: Pt was seen in this ED a few days ago with c/o increased blood pressure and headache. LP performed. Pt discharge to home. Charge nurse called pt with + urine culture result and need for po antibiotics. Pt asserted that she still had a headache and was encouraged to RTED prn. 21:05 Physician consultation: Khurram Childs MD was called at 21:05, was contacted at 21:05, snw regarding admission, to the medical/surgical unit. 21:27 Physician consultation:. snw 21:34 Physician consultation: would like consultation with Dr. Ansari with Dr. Dale. Blood snw patch may help. Topamax 25mg po daily may benefit if pt able to hold it down. Dr. Childs aware. Dr. Carvajal (anesthesia) contacted and agrees to perform blood patch). Pt will be admitted for observation.. 10/06 18:03 Order name: CBC with Diff; Complete Time: 18:39 snw 10/06 18:03 Order name: Blood Culture Adult (2) snw 10/06 18:03 Order name: Chem 7; Complete Time: 18:47 snw 10/06 19:43 Order name: PO challenge: caffeine; Complete Time: 21:08 snw Administered Medications: 18:15 Drug: NS 0.9% 1000 ml Route: IV; Rate: 1 bolus; Site: left antecubital; jl7 21:27 Follow up: Response: No adverse reaction; IV Status: Completed infusion; IV Intake: ea 1000ml 18:16 Drug: LevaQUIN 500 mg Volume: 100 ml; Route: IVPB; Infused Over: 60 mins; Site: left jl7 antecubital; 19:45 Follow up: Response: No adverse reaction; IV Status: Completed infusion ea 18:20 Drug: Zofran 4 mg Route: IVP; Site: left antecubital; jl7 19:43 Follow up: Response: No adverse reaction; Pain is decreased ea 18:30 Drug: fentaNYL (PF) 50 mcg Route: IVP; Site: left antecubital; jl7 19:43 Follow up: Response: No adverse reaction; Pain is decreased ea 19:58 Drug: NS 0.9% 1000 ml Route: IV; Rate: 1 bolus; Site: left antecubital; ea 21:42 Follow up: Response: No adverse reaction; IV Status: Completed infusion; IV Intake: ea 1000ml 21:08 Drug: TORadol 30 mg Route: IVP; Site: left antecubital; ea 21:42 Follow up: Response: No adverse reaction; Pain is decreased ea 21:08 Drug: Phenergan 12.5 mg Route: IVP; Site: left antecubital; ea 21:43 Follow up: Response: No adverse reaction; Marked relief of symptoms ea Disposition: 22:19 Co-signature as Attending Physician, Maury Benitez MD I agree with the assessment and kdr plan of care. Disposition: 10/06/17 21:05 Hospitalization ordered by Khurram Childs for Observation. Preliminary diagnosis are Headache - intractable, Vomiting, unspecified. - Bed requested for Telemetry/MedSurg (observation). - Status is Observation. ea - Condition is Stable. - Problem is an acute exacerbation. - Symptoms are unchanged. UTI on Admission? Yes Signatures: Dispatcher [employer] Mary Cuellar RN RN aj Rittger, Kevin, MD MD kdr Therrien, Shelly, HEATING EQUIPMENT INSTALLER-C HEATING EQUIPMENT INSTALLER-Csnw Shaista Desai RN RN bb Leal, Jahala, RN RN jl7 Debbie Dash RN RN ea Corrections: (The following items were deleted from the chart) 21:35 21:05 Hospitalization Ordered by Khurram Childs MD for Observation. Preliminary bb diagnosis is Headache - intractable; Vomiting, unspecified. Bed requested for Telemetry/MedSurg (observation). Status is Observation. Condition is Stable. Problem is an acute exacerbation. Symptoms are unchanged. UTI on Admission? Yes. snw 23:41 21:35 10/06/2017 21:05 Hospitalization Ordered by Khurram Childs MD for Observation. martir Preliminary diagnosis is Headache - intractable; Vomiting, unspecified. Bed requested for Telemetry/MedSurg (observation). Status is Observation. Condition is Stable. Problem is an acute exacerbation. Symptoms are unchanged. UTI on Admission? Yes. bb
--- NOTE | 2017-10-06 21:58 | P.HP ---
Certification for Inpatient Patient admitted to: Observation With expected LOS: <2 Midnights Practitioner: I am a practitioner with admitting privileges, knowledge of patient current condition, hospital course, and medical plan of care. Services: Services provided to patient in accordance with Admission requirements found in Title 42 Section 412.3 of the Code of Federal Regulations Patient History Date of Service: 10/06/17 Reason for admission: headache History of Present Illness: Ms Torres is a 37 years old woman with history of migraine headache, came to ER about 3 days ago, for persistent headache. She had an extensive work up including urine culture, CT/CTA of head and lumbar puncture. All the test were negative, and she was sent home. Since her LP, the patient has had worse headache, now diffuse, associated with nausea and vomiting. She also is dizzy when she stand up from the bed. She denied any fever or chills. Today the patient was called in to ER because her urine culture was positive for streptococcus agalactiae. At arrival she was symptomatic for severe headache, on significant distress, not able to tolerate oral intake due to vomiting. She was hypertensive 196/103. Allergies No Known Allergies Allergy (Unverified 10/04/17 01:23) - Past Medical/Surgical History -: HTN Past Surgical History: Reviewed- Non-Contributory - Family History Family History: Reviewed- Non-Contributory - Social History Smoking Status: Never smoker Alcohol use: No CD- Drugs: No Caffeine use: Yes Place of Residence: Home Review of Systems 10-point ROS is otherwise unremarkable Physical Examination - Physical Exam General: Alert, Moderate distress (due to headache) HEENT: Atraumatic, PERRLA, Mucous membr. moist/pink, EOMI, Sclerae nonicteric Neck: Supple, 2+ carotid pulse no bruit, No LAD, Without JVD or thyroid abnormality Respiratory: Clear to auscultation bilaterally, Normal air movement Cardiovascular: Regular rate/rhythm, Normal S1 S2 Gastrointestinal: Normal bowel sounds, No tenderness Musculoskeletal: No tenderness Integumentary: No rashes Neurological: Normal speech, Normal strength at 5/5 x4 extr, Normal tone, Normal affect Lymphatics: No axilla or inguinal lymphadenopathy - Studies Laboratory Data (last 24 hrs) 10/06/17 18:20: Sodium 132 L, Potassium 3.3 L, BUN 9, Creatinine 0.86, Glucose 143 H 10/06/17 18:20: WBC 13.9 H D, Hgb 14.2, Hct 42.0, Plt Count 383 Assessment and Plan - Problems (Diagnosis) (1) Headache Current Visit: Yes Status: Acute Qualifiers: Headache type: other headache syndrome Qualified Code(s): G44.89 - Other headache syndrome (2) Nausea & vomiting Current Visit: Yes Status: Acute Qualifiers: Vomiting type: unspecified Vomiting Intractability: intractable Qualified Code(s): R11.2 - Nausea with vomiting, unspecified - Plan The patient will be admitted under observation due to persistent headache associate with intractable nausea and vomiting. Headache at this point might be a combination of migraines and spinal headache secondary to LP 3 days ago. The case was discussed with Dr Dale, who has recommended to proceed with a blood patch. Dr Carvajal (Anaesthetist) was consulted, and he will do the procedure tonight. Will continue with Topomax 25 mg QHS. Will order IV fluids, and symptomatic medication for nausea and vomiting. - Advance Directives Does patient have a Living Will: No Does patient have a Durable POA for Healthcare: No - Code Status/Comfort Care Code Status Assessed: Yes Code Status: Full Code
[2017-10-06] MEDS ORDERED: ONDANSETRON 4 MG/2 ML VIAL IV PRN (22:41)
[2017-10-06] MEDS ORDERED: TOPIRAMATE 25 MG TAB PO SCH (23:00)
[2017-10-06] MEDS: NA CHLORIDE 0.9% 1,000 ML IV SCH (23:53)
[2017-10-07] MEDS ORDERED: POTASSIUM CL SA 10 MEQ TAB PO ONE ×2 (01:44→06:00)
[2017-10-07] MEDS: ACETAMINOPHEN 500 MG TAB PO PRN ×2 (02:17→09:41)
[2017-10-07 04:44] LABS: Absolute Lymphocytes (CBC) 3.9 K/uL (0.7-4.9); Absolute Monocytes 1.2 K/uL (0.1-1.3); Basophils % 0.5 % (0-1.3); Eosinophils % 0.4 % (0-4.4); Hematocrit 37.4 % (36.0-45.0); Lymphocytes % 27.1 % (15.3-44.8); MCH 28.1 pg (27.0-35.0); MCV 83.5 fL (80-100); Monocytes % 8.6 % (3.3-12.3); RBC Red Blood Cell Count 4.47 M/uL (3.86-4.86)
[2017-10-07 05:16] LABS: Magnesium 1.8 mg/dL (1.8-2.5); Potassium 3.8 mEq/L (3.6-5.0)
[2017-10-07] MEDS ORDERED: MAGNESIUM SULFATE 1 gm IVPB 1 GM/100 ML BAG IV ONE (06:00)
[2017-10-07] MEDS: NA CHLORIDE 0.9% 1,000 ML IV SCH (06:03)
[2017-10-07] MEDS ORDERED: Levofloxacin500mg IV 500 MG/100 ML BAG IV SCH (09:00)
[2017-10-07 10:27] LABS: Urine Appearance CLEAR; Urine Bilirubin NEGATIVE (NEG); Urine Blood NEGATIVE (NEG); Urine Color YELLOW; Urine Glucose NEGATIVE (NEG); Urine Protein NEGATIVE (NEG); Urine Specific Gravity <=1.005 (1.005-1.030); Urine Urobilinogen 0.2 mg/dL (0.2-1.0); Urine pH 6.5 (5.0-7.0)
[2017-10-07 10:41] LABS: Urine Bacteria <20 /HPF (<20); Urine Culture Reflex Order NOT NEEDED; Urine RBC <5 /HPF (NONE SEEN)
--- NOTE | 2017-10-07 11:56 | P.SSS ---
Patient History Date of Service: 10/07/17 Reason for admission: headache History of Present Illness: Ms Torres is a 37 years old woman with history of migraine headache, came to ER about 3 days ago, for persistent headache. She had an extensive work up including urine culture, CT/CTA of head and lumbar puncture. All the test were negative, and she was sent home. Since her LP, the patient has had worse headache, now diffuse, associated with nausea and vomiting. She also is dizzy when she stand up from the bed. She denied any fever or chills. Today the patient was called in to ER because her urine culture was positive for streptococcus agalactiae. At arrival she was symptomatic for severe headache, on significant distress, not able to tolerate oral intake due to vomiting. She was hypertensive 196/103. Allergies No Known Allergies Allergy (Verified 10/06/17 23:57) Home Medications: Labetalol HCl [Trandate*] 100 mg PO BID 10/06/17 Levofloxacin [Levaquin] 500 mg PO DAILY #7 tab 10/07/17 - Past Medical/Surgical History Has patient received pneumonia vaccine in the past: No Diabetic: No -: HTN - Family History Family History: Reviewed- Non-Contributory - Social History Smoking Status: Never smoker Alcohol use: No CD- Drugs: No Caffeine use: Yes Place of Residence: Home Review of Systems General: As per HPI Physical Examination - Vital Signs Temperature: 97.9 F Blood Pressure: 136/78 Pulse: 72 Respirations: 18 Pulse Ox (%): 98 - Physical Exam General: Alert, In no apparent distress HEENT: Atraumatic, PERRLA, Mucous membr. moist/pink, EOMI, Sclerae nonicteric Neck: Supple, 2+ carotid pulse no bruit, No LAD, Without JVD or thyroid abnormality Respiratory: Clear to auscultation bilaterally, Normal air movement Cardiovascular: Regular rate/rhythm, Normal S1 S2 Gastrointestinal: Normal bowel sounds, No tenderness Musculoskeletal: No tenderness Integumentary: No rashes Neurological: Normal gait, Normal speech, Normal strength at 5/5 x4 extr, Normal tone, Normal affect Lymphatics: No axilla or inguinal lymphadenopathy - Studies Laboratory Data (last 24 hrs) 10/06/17 18:20: Sodium 132 L, Potassium 3.3 L, BUN 9, Creatinine 0.86, Glucose 143 H 10/06/17 18:20: WBC 13.9 H D, Hgb 14.2, Hct 42.0, Plt Count 383 - Diagnosis (Problem(s)) (1) UTI (urinary tract infection) Current Visit: Yes Status: Acute Qualifiers: Urinary tract infection type: acute cystitis Hematuria presence: without hematuria Qualified Code(s): N30.00 - Acute cystitis without hematuria (2) Headache Onset Date: 10/07/17 Current Visit: Yes Status: Resolved Qualifiers: Headache type: other headache syndrome Qualified Code(s): G44.89 - Other headache syndrome (3) Nausea & vomiting Onset Date: 10/07/17 Current Visit: Yes Status: Resolved Qualifiers: Vomiting type: unspecified Vomiting Intractability: intractable Qualified Code(s): R11.2 - Nausea with vomiting, unspecified Treatment Summary: Overall during the hospital stay patient remained stable Patient was initially admitted to the hospital for headache and nausea vomiting which resolved after IV fluids and starting on antibiotics. Patient was found to have urinary tract infection with strep and was started on Levaquin 500 mg. Patient had marked improvement and thus was discharged home under stable condition was given a prescription for Levaquin 500 mg daily and was asked to follow up with Dr. Dale for further workup if her headaches continue. - Disposition Disposition: ROUTINE DISCHARGE Condition: GOOD Diet: Regular Activity: Ad chiquita
== END 2017-10-07 13:38 | disposition home or self-care (01) ==
LOC: ER 17:39 → 2ND 21:53
PROVIDERS: ADMIT Internal Medicine; ATTEND Family Medicine
DX: N30.00 Acute cystitis without hematuria (principal); R51 Headache; R11.2 Nausea with vomiting, unspecified
CPT/HCPCS: 36415; 80048; 81001; 83735; 85025; 87040; 96361; 96365; 96375; 99285; G0378; J2405; J2550; J3010; J3475; J7030

== ENCOUNTER 2018-10-13 08:47 | Emergency (ER) | payer OTHER ==
[2018-10-13 09:42] LABS: Absolute Lymphocytes (CBC) 2.2 K/uL (0.7-4.9); Absolute Monocytes 0.6 K/uL (0.1-1.3); Absolute Neutrophil 6.5 K/uL (1.8-8.0); Basophils % 0.4 % (0-1.3); Eosinophils % 1.4 % (0-4.4); Hematocrit 40.5 % (36.0-45.0); Lymphocytes % 23.2 % (15.3-44.8); MPV 8.1 fL (7.6-11.3); Monocytes % 6.3 % (3.3-12.3); RBC Red Blood Cell Count 4.84 M/uL (3.86-4.86)
[2018-10-13 09:59] LABS: ALT/SGPT 17 U/L (12-78); AST/SGOT 11 U/L (15-37); Albumin 3.7 g/dL (3.4-5.0); Alkaline Phosphatase 85 U/L (45-117); BUN Blood Urea Nitrogen 14 mg/dL (7-18); Bicarbonate 27 mmol/L (21-32); Bilirubin Direct < 0.1 mg/dL (0-0.2); Bilirubin Total 0.4 mg/dL (0.2-1.0); Glucose Level 98 mg/dL (74-106); Lipase 108 U/L (73-393); Potassium 4.1 mmol/L (3.5-5.1); Protein, Total 7.8 g/dL (6.4-8.2); Sodium Level 139 mmol/L (136-145)
[2018-10-13] MEDS ORDERED: NA CHLORIDE 0.9% 1,000 ML ONE (10:27)
[2018-10-13 10:34] LABS: Urine Blood TRACE (NEG); Urine Glucose NEGATIVE (NEG); Urine Protein NEGATIVE (NEG); Urine Specific Gravity 1.015 (1.005-1.030); Urine pH 7.5 (5.0-7.0)
[2018-10-13 10:34] LABS: Urine Specific Gravity 1.015 (1.005-1.030)
[2018-10-13] MEDS ORDERED: ONDANSETRON 4 MG/2 ML VIAL ONE (10:55)
--- NOTE | 2018-10-13 12:24 | RAD REPORT ---
EXAM DESCRIPTION: CT - Abdomen Pelvis W Contrast - 10/13/2018 12:03 pm CLINICAL HISTORY: Abdominal pain. COMPARISON: 2013 TECHNIQUE: Computed axial tomography of the abdomen and pelvis was obtained. 100 cc Isovue-300 is ad ministered intravenously. Oral contrast was given. All CT scans are performed using dose optimization technique as appropriate and may include automated exposure control or mA/KV adjustment according to patient size. FINDINGS: The liver, spleen, pancreas, and adrenals appear unremarkable. Multiple, bilateral renal calculi. No hydronephrosis seen. A thickened appendix is not visualized. There is no evidence of diverticulitis. 2 centimeter left ova paul cyst without significant free fluid Bladder wall appears thickened. Bladder is incompletely distended IMPRESSION: Multiple, bilateral nonobstructing renal calculi 2 centimeter left ovarian cyst without significant free fluid Apparent bladder wall thickening may be secondary to incomplete distention or cystitis
--- NOTE | 2018-10-13 13:00 | ER ---
Nurse's Notes [facility] Name: Carolin Torres Age: 38 yrs Sex: Female : 1980 Arrival Date: 10/13/2018 Time: 08:49 Bed 13 Private MD: None, None Diagnosis: Lower abdominal pain, unspecified Presentation: 10/13 08:53 Presenting complaint: Patient states: "I was sitting down with my 7 year old and I aa5 pulled him over to my lap and I got a pain in my stomach". pt c/o pain to RUQ only with movement and nausea since yesterday. Transition of care: patient was not received from another setting of care. Onset of symptoms was October 2018. Risk Assessment: Do you want to hurt yourself or someone else? Patient reports no desire to harm self or others. Initial Sepsis Screen: Does the patient meet any 2 criteria? No. Patient's initial sepsis screen is negative. Does the patient have a suspected source of infection? No. Patient's initial sepsis screen is negative. Care prior to arrival: None. 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 - Social history:: Smoking status: Patient/guardian denies using tobacco. - Ebola Screening: : No symptoms or risks identified at this time. Screenin:00 Abuse screen: Denies threats or abuse. Nutritional screening: No deficits noted. aa5 Tuberculosis screening: No symptoms or risk factors identified. Fall Risk None identified. Assessment: 09:00 General: Appears uncomfortable, Behavior is calm, cooperative. Pain: Complains of pain aa5 in right upper quadrant Pain does not radiate. Pain currently is 2 out of 10 on a pain scale. at worst was 6 out of 10 on a pain scale. Quality of pain is described as sharp, Pain began 1 day ago. Is intermittent. Neuro: Level of Consciousness is awake, alert, obeys commands, Oriented to person, place, time, situation. Cardiovascular: Heart tones S1 S2 present Rhythm is regular. Respiratory: Airway is patent Respiratory effort is even, unlabored, Respiratory pattern is regular, symmetrical. GI: Abdomen is round non-distended, Bowel sounds present X 4 quads. Abd is soft and non tender X 4 quads. : No signs and/or symptoms were reported regarding the genitourinary system. EENT: No signs and/or symptoms were reported regarding the EENT system. Derm: Skin is pink, warm \\T\\ dry. Musculoskeletal: Range of motion: intact in all extremities. 10:17 Reassessment: Patient is alert, oriented x 3, equal unlabored respirations, skin aa5 warm/dry/pink. Awaiting CT scan, pt currently denies any complaints. . 10:42 Reassessment: Patient is alert, oriented x 3, equal unlabored respirations, skin aa5 warm/dry/pink. Pt c/o nausea, pt finished CT oral contrast at 1035, PA was notified and order for Zofran was obtained. . 12:00 Reassessment: Patient is alert, oriented x 3, equal unlabored respirations, skin aa5 warm/dry/pink. 12:01 Reassessment: Taken to CT . aa5 13:30 Reassessment: Patient is alert, oriented x 3, equal unlabored respirations, skin aa5 warm/dry/pink. Vital Signs: 08:56 BP 121 / 76; Pulse 65; Resp 18 S; Temp 98.0(O); Pulse Ox 98% ; Weight 72.57 kg (R); aa5 Height 5 ft. 1 in. (154.94 cm) (R); Pain 2/10; 10:17 BP 111 / 67; Pulse 56; Resp 16 S; Pulse Ox 99% on R/A; Pain 2/10; aa5 12:00 BP 115 / 63; Pulse 60; Resp 18 S; Pulse Ox 99% on R/A; Pain 2/10; aa5 08:56 Body Mass Index 30.23 (72.57 kg, 154.94 cm) aa5 ED Course: 08:49 Patient arrived in ED. mr 08:50 None, None is Private Physician. mr 08:53 Arm band placed on. aa5 08:53 Patient has correct armband on for positive identification. Placed in gown. Bed in low aa5 position. Call light in reach. Side rails up X 1. Adult w/ patient. 08:55 Triage completed. aa5 08:57 Sherice Valencia, RN is Primary Nurse. aa5 08:57 Anselmo Cornejo PA is PHCP. cp 08:57 Savage Rao MD is Attending Physician. cp 09:30 Initial lab(s) drawn, by me, sent to lab. Inserted saline lock: 20 gauge in right aa5 antecubital area, using aseptic technique. Blood collected. 10:13 Urine collected: clean catch specimen, clear. dh3 12:04 CT Abd/Pelvis - PO and IV Contrast In Process Unspecified. EDMS 13:30 No provider procedures requiring assistance completed. IV discontinued, intact, aa5 bleeding controlled, No redness/swelling at site. Pressure dressing applied. Administered Medications: 10:17 Drug: NS 0.9% 1000 ml Route: IV; Rate: 1 bolus; Site: right antecubital; aa5 12:00 Follow up: IV Status: Completed infusion; IV Intake: 1000ml aa5 10:43 Drug: Zofran 4 mg Route: IVP; Site: right antecubital; aa5 10:50 Follow up: Response: No adverse reaction aa5 Intake: 12:00 IV: 1000ml; Total: 1000ml. aa5 Outcome: 12:59 Discharge ordered by . cp 13:30 Discharged to home ambulatory. aa5 13:30 Condition: stable 13:30 Discharge instructions given to patient, Instructed on discharge instructions, follow up and referral plans. medication usage, Demonstrated understanding of instructions, follow-up care, medications, Prescriptions given X 2. 13:34 Patient left the ED. aa5 Signatures: Dispatcher [employer] EDSC Christina Pearson Sherice Valencia RN RN aa5 Anselmo Cornejo PA PA cp Herrera, Deanna 3
--- NOTE | 2018-10-13 13:00 | EDPHYS ---
Physician Documentation [facility] Name: Carolin Torres Age: 38 yrs Sex: Female : 1980 Arrival Date: 10/13/2018 Time: 08:49 Bed 13 Private MD: None, None ED Physician Savage Rao HPI: 10/13 09:30 This 38 yrs old Female presents to ER via Ambulatory with complaints of cp Abdominal Pain. 09:30 The patient presents with abdominal pain right lower quadrant. cp 09:30 Onset: The symptoms/episode began/occurred yesterday. The symptoms do not radiate. cp Associated signs and symptoms: Pertinent negatives: nausea, vomiting, and diarrhea, constipation, dysuria, fever. Modifying factors: the symptoms are aggravated by pressure. Patient reports she started having pain yesterday after reaching to place child onto her lap. Pain has been getting worse. 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 - Social history:: Smoking status: Patient/guardian denies using tobacco. - Ebola Screening: : No symptoms or risks identified at this time. ROS: 09:45 Constitutional: Negative for body aches, chills, fever, poor PO intake. cp 09:45 Eyes: Negative for injury, pain, redness, and discharge. cp 09:45 ENT: Negative for drainage from ear(s), ear pain, sore throat, difficulty swallowing, difficulty handling secretions. 09:45 Cardiovascular: Negative for chest pain. 09:45 Respiratory: Negative for cough, shortness of breath, wheezing. 09:45 Abdomen/GI: Positive for abdominal pain, of the right lower quadrant, Negative for nausea, vomiting, and diarrhea, anorexia, black/tarry stool, rectal bleeding. 09:45 Back: Negative for pain at rest, pain with movement, radiated pain. 09:45 : Negative for urinary symptoms, vaginal bleeding, vaginal discharge. 09:45 Skin: Negative for rash. 09:45 Neuro: Negative for altered mental status, headache, weakness. 09:45 All other systems are negative. Exam: 09:52 Constitutional: The patient appears in no acute distress, alert, awake, non-toxic, well cp developed, well nourished. 09:52 Head/Face: Normocephalic, atraumatic. cp 09:52 Eyes: Periorbital structures: appear normal, Conjunctiva: normal, no exudate, no injection, Sclera: no appreciated abnormality, Lids and lashes: appear normal, bilaterally. 09:52 ENT: External ear(s): are unremarkable, Nose: is normal, Mouth: Lips: moist, Oral mucosa: pink and intact, moist, Posterior pharynx: is normal, airway is patent, no erythema, no exudate. 09:52 Chest/axilla: Inspection: normal, Palpation: is normal, no crepitus, no tenderness. 09:52 Cardiovascular: Rate: normal, Rhythm: regular, Edema: is not appreciated. 09:52 Respiratory: the patient does not display signs of respiratory distress, Respirations: normal, no use of accessory muscles, no retractions, no splinting, no tachypnea, labored breathing, is not present, Breath sounds: are clear throughout, no decreased breath sounds, no stridor, no wheezing. 09:52 Abdomen/GI: Inspection: abdomen appears normal, Bowel sounds: active, all quadrants, Palpation: soft, in all quadrants, mild abdominal tenderness, in the right lower quadrant, rebound tenderness, is not appreciated, voluntary guarding, is elicited in the right lower quadrant. 09:52 Back: pain, is absent, ROM is normal. 09:52 Skin: no rash present. Vital Signs: 08:56 BP 121 / 76; Pulse 65; Resp 18 S; Temp 98.0(O); Pulse Ox 98% ; Weight 72.57 kg (R); aa5 Height 5 ft. 1 in. (154.94 cm) (R); Pain 2/10; 10:17 BP 111 / 67; Pulse 56; Resp 16 S; Pulse Ox 99% on R/A; Pain 2/10; aa5 12:00 BP 115 / 63; Pulse 60; Resp 18 S; Pulse Ox 99% on R/A; Pain 2/10; aa5 08:56 Body Mass Index 30.23 (72.57 kg, 154.94 cm) aa5 MDM: 09:08 Patient medically screened. 12:57 Data reviewed: vital signs, nurses notes, lab test result(s), radiologic studies, CT cp scan. 12:57 Differential diagnosis: appendicitis, bowel obstruction, gastritis, non-specific abd cp pain, Ovarian Torsion, Tubal Ovarian Abcess, Ureterolithiasis, urinary tract infection. Counseling: I had a detailed discussion with the patient and/or guardian regarding: the historical points, exam findings, and any diagnostic results supporting the discharge/admit diagnosis, lab results, radiology results, to return to the emergency department if symptoms worsen or persist or if there are any questions or concerns that arise at home. Response to treatment: the patient's symptoms have mildly improved after treatment, and as a result, I will discharge patient. 12:58 Special discussion: Based on the patient's Hx, exam, and Dx evaluation, there is no cp indication for emergent surgery or inpatient Tx. It is understood by the patient/guardian that if the Sx's persist or worsen they need to return immediately for re-evaluation. 10/13 09:21 Order name: Basic Metabolic Panel; Complete Time: 10:03 cp 10/13 09:21 Order name: CBC with Diff; Complete Time: 10:03 cp 10/13 09:21 Order name: Creatinine for Radiology; Complete Time: 10:03 cp 10/13 09:21 Order name: Hepatic Function; Complete Time: 10:03 cp 10/13 09:21 Order name: Lipase; Complete Time: 10:03 cp 10/13 10:15 Order name: Urine Dipstick--Ancillary (enter results); Complete Time: 12:31 eb 10/13 09:21 Order name: IV Saline Lock; Complete Time: 09:35 cp 10/13 09:21 Order name: Labs collected and sent; Complete Time: 09:35 cp 10/13 09:21 Order name: Urine Dipstick-Ancillary (obtain specimen); Complete Time: :58 cp 10/13 09:21 Order name: Urine Test (obtain specimen); Complete Time: :58 cp 10/13 10:04 Order name: CT Abd/Pelvis - PO and IV Contrast; Complete Time: 12:31 cp 10/13 12:46 Interpretation: Report reviewed. 10/13 10:15 Order name: Urine --Ancillary (enter results); Complete Time: 12:31 eb Administered Medications: 10:17 Drug: NS 0.9% 1000 ml Route: IV; Rate: 1 bolus; Site: right antecubital; aa5 12:00 Follow up: IV Status: Completed infusion; IV Intake: 1000ml aa5 10:43 Drug: Zofran 4 mg Route: IVP; Site: right antecubital; aa5 10:50 Follow up: Response: No adverse reaction aa5 Disposition: 10/14 12:44 Co-signature as Attending Physician, Savage Rao MD. rn Disposition: 10/13/18 12:59 Discharged to Home. Impression: Lower abdominal pain, unspecified. - Condition is Stable. - Discharge Instructions: Abdominal Pain, Adult. - Prescriptions for Ibuprofen 800 mg Oral Tablet - take 1 tablet by ORAL route every 8 hours As needed take with food; 30 tablet. Zofran 4 mg Oral Tablet - take 1 tablet by ORAL route every 12 hours As needed; 20 tablet. - Medication Reconciliation Form, Thank You Letter, Antibiotic Education, Prescription Opioid Use form. - Follow up: Private Physician; When: 2 - 3 days; Reason: Worsening of condition. - Problem is new. - Symptoms have improved. Signatures: Dispatcher [employer] EDMS Savage Rao MD MD rn Calderon, Audri, RN RN aa5 Anselmo Cornejo PA PA cp Corrections: (The following items were deleted from the chart) 10/13 13:34 12:59 10/13/2018 12:59 Discharged to Home. Impression: Lower abdominal pain, aa5 unspecified. Condition is Stable. Forms are Medication Reconciliation Form, Thank You Letter, Antibiotic Education, Prescription Opioid Use. Follow up: Private Physician; When: 2 - 3 days; Reason: Worsening of condition. Problem is new. Symptoms have improved. cp
== END 2018-10-13 13:34 | disposition home or self-care (01) ==
LOC: ER 08:47
DX: R10.31 Right lower quadrant pain (principal); I10 Essential (primary) hypertension
CPT/HCPCS: 36415; 74177; 80048; 80076; 81003; 81025; 83690; 85025; 96361; 96374; 99284; J2405; J7030; Q9967

== ENCOUNTER 2019-01-15 17:44 | Emergency (ER) | payer OTHER ==
[2019-01-15 19:04] LABS: Absolute Lymphocytes (CBC) 3.4 K/uL (0.7-4.9); Basophils % 0.4 % (0-1.3); Hematocrit 37.1 % (36.0-45.0); Lymphocytes % 37.9 % (15.3-44.8); MPV 8.2 fL (7.6-11.3); RBC Red Blood Cell Count 4.35 M/uL (3.86-4.86)
[2019-01-15 19:23] LABS: Specific Gravity 1.015 (1.005-1.030); Urine Bilirubin NEGATIVE (NEG); Urine Blood 3+ (NEG); Urine Glucose NEGATIVE (NEG); Urine Protein 1+ (NEG); Urine Specific Gravity 1.015 (1.005-1.030); Urine pH 5.5 (5.0-7.0)
[2019-01-15 19:25] LABS: Urine Appearance CLOUDY; Urine Color RED
[2019-01-15 19:26] LABS: Potassium 3.9 mmol/L (3.5-5.1)
[2019-01-15 20:11] LABS: Urine Bacteria 20-50 /HPF (<20); Urine Culture Reflex Order REFLEXED; Urine RBC LOADED /HPF (NONE SEEN)
--- NOTE | 2019-01-15 20:51 | EDPHYS ---
Physician Documentation [facility] Name: Carolin Torres Age: 38 yrs Sex: Female : 1980 Arrival Date: 01/15/2019 Time: 17:47 Bed 27 Private MD: ED Physician Maury Benitez HPI: 01/15 18:26 This 38 yrs old Female presents to ER via Ambulatory with complaints of pm1 Vaginal Bleeding. 18:26 The patient presents with vaginal bleeding that is heavy, with clots. Onset: The pm1 symptoms/episode began/occurred last night. Modifying factors: The symptoms are alleviated by nothing, the symptoms are aggravated by nothing. Associated signs and symptoms: Pertinent negatives: cramping, dysuria, fever, nausea, vomiting. Severity of symptoms: in the emergency department the symptoms have improved, markedly. The patient is sexually active, reportedly has a single partner, uses protection during intercourse. The patient's method of control includes condom. The patient has not experienced similar symptoms in the past. The patient has not recently seen a physician. Patient presenting with heavy vaginal bleeding onset last night. At 1300 today vaginal bleeding has started to slow down. Historical: - Allergies: 18:03 No Known Allergies; aa5 - Home Meds: 18:03 labetalol Oral [Active]; unknown antihypertensive [Active]; aa5 - PMHx: 18:03 Hypertension; aa5 - PSHx: 18:04 D \T\ C; aa5 - Immunization history:: Flu vaccine is not up to date. - Social history:: Smoking status: Patient/guardian denies using tobacco. - Ebola Screening: : No symptoms or risks identified at this time. ROS: 18:26 Positive for vaginal bleeding, Negative for burning with urination, vaginal pm1 discharge. 18:26 Constitutional: Negative for fever, chills, and weight loss, Eyes: Negative for injury, pain, redness, and discharge, ENT: Negative for injury, pain, and discharge, Neck: Negative for injury, pain, and swelling, Cardiovascular: Negative for chest pain, palpitations, and edema, Respiratory: Negative for shortness of breath, cough, wheezing, and pleuritic chest pain, Abdomen/GI: Negative for abdominal pain, nausea, vomiting, diarrhea, and constipation, Back: Negative for injury and pain, MS/Extremity: Negative for injury and deformity, Skin: Negative for injury, rash, and discoloration. 18:26 Neuro: Negative for headache, weakness, numbness, tingling, and seizure. Exam: 18:26 Constitutional: This is a well developed, well nourished patient who is awake, alert, pm1 and in no acute distress. Head/Face: Normocephalic, atraumatic. Eyes: Pupils equal round and reactive to light, extra-ocular motions intact. Lids and lashes normal. Conjunctiva and sclera are non-icteric and not injected. Cornea within normal limits. Periorbital areas with no swelling, redness, or edema. ENT: Nares patent. No nasal discharge, no septal abnormalities noted. Tympanic membranes are normal and external auditory canals are clear. Oropharynx with no redness, swelling, or masses, exudates, or evidence of obstruction, uvula midline. Mucous membranes moist. Neck: Trachea midline, no thyromegaly or masses palpated, and no cervical lymphadenopathy. Supple, full range of motion without nuchal rigidity, or vertebral point tenderness. No Meningismus. Chest/axilla: Normal chest wall appearance and motion. Nontender with no deformity. No lesions are appreciated. Cardiovascular: Regular rate and rhythm with a normal S1 and S2. No gallops, murmurs, or rubs. Normal PMI, no JVD. No pulse deficits. Respiratory: Lungs have equal breath sounds bilaterally, clear to auscultation and percussion. No rales, rhonchi or wheezes noted. No increased work of breathing, no retractions or nasal flaring. Abdomen/GI: Soft, non-tender, with normal bowel sounds. No distension or tympany. No guarding or rebound. No evidence of tenderness throughout. Back: No spinal tenderness. No costovertebral tenderness. Full range of motion. Skin: Warm, dry with normal turgor. Normal color with no rashes, no lesions, and no evidence of cellulitis. MS/ Extremity: Pulses equal, no cyanosis. Neurovascular intact. Full, normal range of motion. Vital Signs: 18:04 BP 131 / 69; Pulse 70; Resp 16 S; Temp 98.3(TE); Pulse Ox 98% on R/A; Weight 72.57 kg aa5 (R); Height 5 ft. 1 in. (154.94 cm) (R); Pain 0/10; 21:00 BP 127 / 66; Pulse 72; Resp 18; Pulse Ox 97% on R/A; aj1 18:04 Body Mass Index 30.23 (72.57 kg, 154.94 cm) aa5 MDM: 18:12 Patient medically screened. pm1 20:48 Data reviewed: vital signs. Data interpreted: Pulse oximetry: on room air is 98 %. pm1 Interpretation: normal. Counseling: I had a detailed discussion with the patient and/or guardian regarding: the historical points, exam findings, and any diagnostic results supporting the discharge/admit diagnosis, lab results, the need for outpatient follow up, for definitive care, an OB/Gyne specialist, to return to the emergency department if symptoms worsen or persist or if there are any questions or concerns that arise at home. 20:48 ED course: Patient did not want pelvic exam because her vaginal bleeding has slowed pm1 down. She has not changed her current pad since 1700 . 01/15 18:13 Order name: Basic Metabolic Panel; Complete Time: 19:31 pm1 01/15 18:13 Order name: CBC with Diff; Complete Time: 19:12 pm1 01/15 19:20 Order name: Test, Urine; Complete Time: 20:37 EDKY 01/15 19:20 Order name: Urinalysis W/Microscopic; Complete Time: 20:37 EDKY 01/15 20:13 Order name: Urine Culture EDKY 01/15 18:13 Order name: Urine Test (obtain specimen); Complete Time: 19:00 pm1 01/15 18:13 Order name: IV Saline Lock; Complete Time: 18:58 pm1 01/15 18:13 Order name: Labs collected and sent; Complete Time: 18:58 pm1 01/15 18:13 Order name: NPO; Complete Time: 18:39 pm1 01/15 18:13 Order name: Urine Dipstick-Ancillary (obtain specimen); Complete Time: 18:58 pm1 Administered Medications: No medications were administered Disposition: 01/15/19 20:49 Discharged to Home. Impression: Abnormal uterine and vaginal bleeding, unspecified. - Condition is Stable. - Discharge Instructions: Abnormal Uterine Bleeding. - Medication Reconciliation Form, Thank You Letter, Antibiotic Education, Prescription Opioid Use form. - Follow up: Emergency Department; When: As needed; Reason: Worsening of condition. Follow up: Private Physician; When: 2 - 3 days; Reason: Recheck today's complaints, Continuance of care, Re-evaluation by your physician. - Problem is new. - Symptoms have improved. Addendum: 01/22/2019 08:51 Co-signature as Attending Physician, Maury Benitez MD I agree with the assessment and k dr plan of care. Signatures: Dispatcher [employer] [facility] Snow Kaufman RN RN aj1 Maury Benitez MD MD kdr Sherice Valencia RN RN aa5 Jeferson Mcgarry, NORMALIZER NORMALIZER pm1 Corrections: (The following items were deleted from the chart) 01/15 18:04 18:03 PSHx: None; miriam pineda 19:20 18:39 URINALYSIS+U.LAB.BRZ ordered. [facility] 21:01 20:49 01/15/2019 20:49 Discharged to Home. Impression: Abnormal uterine and vaginal aj1 bleeding, unspecified. Condition is Stable. Forms are Medication Reconciliation Form, Thank You Letter, Antibiotic Education, Prescription Opioid Use. Follow up: Emergency Department; When: As needed; Reason: Worsening of condition. Follow up: Private Physician; When: 2 - 3 days; Reason: Recheck today's complaints, Continuance of care, Re-evaluation by your physician. Problem is new. Symptoms have improved. pm1
--- NOTE | 2019-01-15 20:51 | ER ---
Nurse's Notes [facility] Name: Carolin Torres Age: 38 yrs Sex: Female : 1980 Arrival Date: 01/15/2019 Time: 17:47 Bed 27 Private MD: Diagnosis: Abnormal uterine and vaginal bleeding, unspecified Presentation: 01/15 18:00 Presenting complaint: Patient states: vaginal bleeding that began last night. Pt states aa5 "I am passing big clots and I had to changed my bed and my panties several times during the night because I just kept bleeding". Transition of care: patient was not received from another setting of care. Onset of symptoms was January 2019. Risk Assessment: Do you want to hurt yourself or someone else? Patient reports no desire to harm self or others. Initial Sepsis Screen: Does the patient meet any 2 criteria? No. Patient's initial sepsis screen is negative. Does the patient have a suspected source of infection? No. Patient's initial sepsis screen is negative. Care prior to arrival: None. 18:00 Acuity: NANCI 3 aa5 18:00 Method Of Arrival: Ambulatory aa5 Historical: - Allergies: 18:03 No Known Allergies; aa5 - Home Meds: 18:03 labetalol Oral [Active]; unknown antihypertensive [Active]; aa5 - PMHx: 18:03 Hypertension; aa5 - PSHx: 18:04 D \\T\\ C; aa5 - Immunization history:: Flu vaccine is not up to date. - Social history:: Smoking status: Patient/guardian denies using tobacco. - Ebola Screening: : No symptoms or risks identified at this time. Screenin:01 Abuse screen: Denies threats or abuse. Denies injuries from another. Nutritional aj1 screening: No deficits noted. Tuberculosis screening: No symptoms or risk factors identified. 21:01 Fall Risk None identified. aj1 Assessment: 18:15 General: Appears in no apparent distress. comfortable, Behavior is calm, cooperative, aj1 appropriate for age. Pain: Denies pain. Neuro: Level of Consciousness is awake, alert, obeys commands, Oriented to person, place, time, situation. Cardiovascular: Patient's skin is warm and dry. Respiratory: Airway is patent Respiratory effort is even, unlabored, Respiratory pattern is regular, symmetrical. GI: Abdomen is non-distended. : Reports vaginal bleeding that is that was heavy last night, but has slowed down now. Reports that she has been passing large clots today. : Urine is blood tinged. EENT: No signs and/or symptoms were reported regarding the EENT system. Derm: Skin is pink, warm \\T\\ dry. normal. Musculoskeletal: Circulation, motion, and sensation intact. 19:15 Reassessment: Patient appears in no apparent distress at this time. No changes from aj1 previously documented assessment. Patient and/or family updated on plan of care and expected duration. Pain level reassessed. Patient is alert, oriented x 3, equal unlabored respirations, skin warm/dry/pink. 20:15 Reassessment: Patient appears in no apparent distress at this time. No changes from aj1 previously documented assessment. Patient and/or family updated on plan of care and expected duration. Pain level reassessed. Patient is alert, oriented x 3, equal unlabored respirations, skin warm/dry/pink. 20:41 Reassessment: RENUKA Walker at bedside. aj1 Vital Signs: 18:04 BP 131 / 69; Pulse 70; Resp 16 S; Temp 98.3(TE); Pulse Ox 98% on R/A; Weight 72.57 kg aa5 (R); Height 5 ft. 1 in. (154.94 cm) (R); Pain 0/10; 21:00 BP 127 / 66; Pulse 72; Resp 18; Pulse Ox 97% on R/A; aj1 18:04 Body Mass Index 30.23 (72.57 kg, 154.94 cm) aa5 ED Course: 17:47 Patient arrived in ED. mr 18:00 Arm band placed on. aa5 18:03 Triage completed. aa5 18:11 Jeferson Mcgarry NP is PHCP. pm1 18:11 Maury Benitez MD is Attending Physician. pm1 18:37 Snow Kaufman, JOSHUA is Primary Nurse. aj1 18:45 Initial lab(s) drawn, by nh, sent to lab. Urine collected: clean catch specimen, clear, jp3 blood tinged. Inserted saline lock: 20 gauge in right antecubital area, using aseptic technique. Blood collected. Patient maintains SpO2 saturation greater than 95% on room air. 19:01 Patient has correct armband on for positive identification. aj1 19: No provider procedures requiring assistance completed. aj1 19:05 Warm blanket given. Pillow given. Verbal reassurance given. Pulse ox on. NIBP on. jp3 19: Basic Metabolic Panel Sent. jp3 19: CBC with Diff Sent. jp3 21:00 IV discontinued, intact, bleeding controlled, No redness/swelling at site. Pressure aj1 dressing applied. Administered Medications: No medications were administered Outcome: 20:49 Discharge ordered by MD. pm1 21: Discharged to home ambulatory. aj1 21: Condition: good 21:01 Discharge instructions given to patient, Instructed on discharge instructions, follow up and referral plans. Demonstrated understanding of instructions, follow-up care. 21:01 Patient left the ED. aj1 Signatures: Snow Kaufman RN RN aj1 Christina Pearson ErikSherice RN RN aa5 Jeferson Mcgarry, SITE ENGINEER SITE ENGINEER pm1 Kevin Perez jp3 Corrections: (The following items were deleted from the chart) 18:04 18:03 PSHx: None; aa5 aa5 18:04 18:04 BP 131 / 69; Pulse 70bpm; Resp 16bpm; Spontaneous; Pulse Ox 98% RA; Temp 98.3F aa5 Temporal; aa5 19:12 19:01 General: Appears in no apparent distress. comfortable, Behavior is calm, aj1 cooperative, appropriate for age, aj1 : 19: Pain: Denies pain. aj1 aj1 : 19: Neuro: Level of Consciousness is awake, alert, obeys commands, Oriented to aj1 person, place, time, situation, aj1 : 19: Cardiovascular: Patient's skin is warm and dry. aj1 aj1 : 19: Respiratory: Airway is patent Respiratory effort is even, unlabored, Respiratory aj pattern is regular, symmetrical, aj1 : 19: GI: Abdomen is non-distended, aj1 aj1 : 19: : Reports vaginal bleeding that is that was heavy last night, but has slowed aj1 down now. Reports that she has been passing large clots today aj1 : 19: EENT: No signs and/or symptoms were reported regarding the EENT system. aj1 aj1 19: Derm: Skin is pink, warm \\T\\ dry. normal, aj1 aj1 : 19:01 Musculoskeletal: Circulation, motion, and sensation intact. 1 1 19: : Urine is blood tinged, [facility] aj1
[2019-01-15 22:24] VITALS: TEMP 98.3
[2019-01-15 22:25] VITALS: BP 127/66; O2SAT 97
== END 2019-01-15 21:01 | disposition home or self-care (01) ==
LOC: ER 17:44
DX: N93.9 Abnormal uterine and vaginal bleeding, unspecified (principal); I10 Essential (primary) hypertension
CPT/HCPCS: 36415; 80048; 81001; 81025; 85025; 87086; 87088; 99284

== ENCOUNTER 2019-06-06 12:31 | Emergency (ER) | payer OTHER ==
[2019-06-06] MEDS ORDERED: NA CHLORIDE 0.9% 1,000 ML ONE (13:01)
[2019-06-06 13:06] LABS: Urine Blood 3+ (NEG); Urine Glucose NEGATIVE (NEG); Urine Protein NEGATIVE (NEG)
[2019-06-06] MEDS ORDERED: ONDANSETRON 4 MG/2 ML VIAL ONE ×2 (13:10→14:25)
[2019-06-06] MEDS ORDERED: MORPHINE 4 MG/ML SYR ONE ×2 (13:10→14:25)
[2019-06-06 13:17] LABS: Basophils % 0.7 % (0-1.3); Hematocrit 35.3 % (36.0-45.0); Lymphocytes % 19.9 % (15.3-44.8); MPV 8.2 fL (7.6-11.3); RBC Red Blood Cell Count 4.35 M/uL (3.86-4.86)
[2019-06-06] MEDS ORDERED: CEFTRIAXONE/SWI 1gm 1 GM/10 ML SYR ONE (13:24)
[2019-06-06 14:12] LABS: ALT/SGPT 22 U/L (12-78); AST/SGOT 22 U/L (15-37); Albumin 3.7 g/dL (3.4-5.0); Alkaline Phosphatase 85 U/L (45-117); BUN Blood Urea Nitrogen 11 mg/dL (7-18); Bicarbonate 25 mmol/L (21-32); Bilirubin Direct < 0.1 mg/dL (0-0.2); Bilirubin Total 0.3 mg/dL (0.2-1.0); Glucose Level 74 mg/dL (74-106); Lipase 113 U/L (73-393); Potassium 4.1 mmol/L (3.5-5.1); Protein, Total 7.2 g/dL (6.4-8.2); Sodium Level 140 mmol/L (136-145)
--- NOTE | 2019-06-06 14:22 | RAD REPORT ---
EXAM DESCRIPTION: CT - Abdomen Pelvis W Contrast - 06/06/2019 2:07 pm CLINICAL HISTORY: Abdominal pain TECHNIQUE: Computed axial tomography of the abdomen pelvis was obtained. 100 cc Isovue-300 was admin istered intravenously. Oral contrast was not requested which limits evaluation of bowel. All CT scans are performed using dose optimization technique as appropriate and may include automated exposure control or mA/KV adjustment according to patient size. FINDINGS: The liver, spleen, pancreas, and adrenals are unremarkable Multiple, bilateral nonobstructing renal calculi. There is no evidence of diverticulitis. Normal appendix The cervix is mildly bulky. IMPRESSION: Bilateral nonobstructing renal calculi Cervix is mildly bulky. However it is without significant change from a 2014 cat scan
--- NOTE | 2019-06-06 14:22 | RAD REPORT ---
EXAM DESCRIPTION: US - Transvaginal Study Probe - 06/06/2019 1:48 pm CLINICAL HISTORY: Abdominal pain COMPARISON: none FINDINGS: The uterus measures 9 x 5 x 6cm. A fibroid is not seen. The endometrial stripe measures 5 millimeters The ovaries are normal in size and echotexture. No significant free fluid is seen. IMPRESSION: Unremarkable pelvic ultrasound
--- NOTE | 2019-06-06 14:31 | EDPHYS ---
Physician Documentation [facility] Name: Carolin Torres Age: 39 yrs Sex: Female : 1980 Arrival Date: 06/06/2019 Time: 12:34 Bed 25 Private MD: ED Physician Anselmo Williamson HPI: 06/06 13:07 This 39 yrs old Female presents to ER via Ambulatory with complaints of harvinder Vaginal Bleeding, Abdominal Pain, Vomiting. 13:07 The patient presents with pelvic pain, that is located in/on the suprapubic area, right harvinder lower quadrant and left lower quadrant, urinary symptoms, vaginal bleeding that is. Onset: The symptoms/episode began/occurred 2 day(s) ago. Modifying factors: The symptoms are alleviated by nothing, the symptoms are aggravated by nothing. Associated signs and symptoms: Pertinent positives: nausea, vaginal bleeding. Severity of symptoms: At their worst the symptoms were moderate, in the emergency department the symptoms are unchanged. The patient is sexually active, reportedly has a single partner. The patient has experienced similar episodes in the past, several times. 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 - Coronavirus screen:: The patient has NOT traveled to [place], [place], or [place] in the past 14 days. Proceed with normal triage process as indicated. - Social history:: Smoking status: Patient denies any tobacco usage or history of. - Family history:: not pertinent. - Ebola Screening: : No symptoms or risks identified at this time. ROS: 13:07 Constitutional: Negative for fever, chills, and weight loss, Eyes: Negative for injury, harvinder pain, redness, and discharge, ENT: Negative for injury, pain, and discharge, Neck: Negative for injury, pain, and swelling, Cardiovascular: Negative for chest pain, palpitations, and edema, Respiratory: Negative for shortness of breath, cough, wheezing, and pleuritic chest pain, Back: Negative for injury and pain, MS/Extremity: Negative for injury and deformity, Skin: Negative for injury, rash, and discoloration, Neuro: Negative for headache, weakness, numbness, tingling, and seizure, Psych: Negative for depression, anxiety, suicide ideation, homicidal ideation, and hallucinations, Allergy/Immunology: Negative for hives, rash, and allergies, Endocrine: Negative for neck swelling, polydipsia, polyuria, polyphagia, and marked weight changes, Hematologic/Lymphatic: Negative for swollen nodes, abnormal bleeding, and unusual bruising. 13:07 Abdomen/GI: Positive for abdominal pain, of the suprapubic area, right lower quadrant and left lower quadrant. Exam: 13:07 Constitutional: This is a well developed, well nourished patient who is awake, alert, harvinder and in no acute distress. Head/Face: Normocephalic, atraumatic. Eyes: Pupils equal round and reactive to light, extra-ocular motions intact. Lids and lashes normal. Conjunctiva and sclera are non-icteric and not injected. Cornea within normal limits. Periorbital areas with no swelling, redness, or edema. ENT: Nares patent. No nasal discharge, no septal abnormalities noted. Tympanic membranes are normal and external auditory canals are clear. Oropharynx with no redness, swelling, or masses, exudates, or evidence of obstruction, uvula midline. Mucous membranes moist. Neck: Trachea midline, no thyromegaly or masses palpated, and no cervical lymphadenopathy. Supple, full range of motion without nuchal rigidity, or vertebral point tenderness. No Meningismus. Chest/axilla: Normal chest wall appearance and motion. Nontender with no deformity. No lesions are appreciated. Cardiovascular: Regular rate and rhythm with a normal S1 and S2. No gallops, murmurs, or rubs. Normal PMI, no JVD. No pulse deficits. Respiratory: Lungs have equal breath sounds bilaterally, clear to auscultation and percussion. No rales, rhonchi or wheezes noted. No increased work of breathing, no retractions or nasal flaring. Skin: Warm, dry with normal turgor. Normal color with no rashes, no lesions, and no evidence of cellulitis. MS/ Extremity: Pulses equal, no cyanosis. Neurovascular intact. Full, normal range of motion. Neuro: Awake and alert, GCS 15, oriented to person, place, time, and situation. Cranial nerves II-XII grossly intact. Motor strength 5/5 in all extremities. Sensory grossly intact. Cerebellar exam normal. Normal gait. Psych: Awake, alert, with orientation to person, place and time. Behavior, mood, and affect are within normal limits. 13:07 Abdomen/GI: Inspection: distension, is not seen, Bowel sounds: normal, Palpation: moderate abdominal tenderness, in the suprapubic area, right lower quadrant and left lower quadrant, Liver: no appreciated palpable abnormalities, Hernia: not appreciated. Vital Signs: 12:39 BP 120 / 78; Pulse 88; Resp 16 S; Temp 98.6(O); Pulse Ox 98% on R/A; Weight 72.57 kg jl7 (R); Height 5 ft. 1 in. (154.94 cm) (R); Pain 7/10; 13:00 BP 125 / 76; Pulse 68; Resp 18; Pulse Ox 100% on R/A; Pain 10/10; vc 14:00 BP 113 / 67; Pulse 74; Resp 16; Pulse Ox 100% ; vc 15:00 BP 118 / 70; Pulse 72; Resp 15; Pulse Ox 100% on R/A; vc 12:39 Body Mass Index 30.23 (72.57 kg, 154.94 cm) jl7 MDM: 12:47 Patient medically screened. [facility] 13:09 Data reviewed: vital signs, nurses notes, lab test result(s), EKG, radiologic studies, [facility] CT scan, ultrasound. 06/06 12:49 Order name: Basic Metabolic Panel; Complete Time: 14:29 [facility] 06/06 12:49 Order name: CBC with Diff; Complete Time: 13:44 [facility] 06/06 12:49 Order name: Creatinine for Radiology; Complete Time: 13:44 [facility] 06/06 12:49 Order name: Hepatic Function; Complete Time: 14:29 [facility] 06/06 12:49 Order name: Lipase; Complete Time: 14:29 [facility] 06/06 12:49 Order name: Urine Culture [facility] 06/06 12:49 Order name: Type And Screen; Complete Time: 14:10 [facility] 06/06 13:00 Order name: Urine Dipstick--Ancillary (enter results); Complete Time: 13:44 06/06 13:01 Order name: Urine --Ancillary (enter results); Complete Time: 13:44 06/06 13:07 Order name: US Transvaginal Study (Probe); Complete Time: 14:29 [facility] 06/06 13:07 Order name: CT Abd/Pelvis - IV Contrast Only; Complete Time: 14:29 [facility] 06/06 14:21 Order name: ABO/RH no charge; Complete Time: 14:29 [facility] 06/06 12:49 Order name: IV Saline Lock; Complete Time: 13:08 [facility] 06/06 12:49 Order name: Labs collected and sent; Complete Time: 13:08 [facility] 06/06 12:49 Order name: Urine Dipstick-Ancillary (obtain specimen); Complete Time: 13:02 [facility] 06/06 12:49 Order name: Urine Test (obtain specimen); Complete Time: 13:02 [facility] 06/06 12:49 Order name: EKG; Complete Time: 12:51 [facility] 06/06 12:49 Order name: EKG - Nurse/Tech; Complete Time: 13:13 harvinder Administered Medications: 13:04 Drug: NS 0.9% 1000 ml Route: IV; Rate: 1 bolus; Site: left antecubital; vc 13:10 Drug: Zofran 4 mg Route: IVP; Site: left antecubital; vc 15:22 Follow up: Response: No adverse reaction iw 13:12 Drug: morphine 4 mg Route: IVP; Site: left antecubital; vc 15:22 Follow up: Response: No adverse reaction; Pain is decreased iw 13:30 Drug: Rocephin 1 grams Route: IV; Rate: per protocol; Site: left antecubital; vc 14:28 Drug: morphine 4 mg Route: IVP; Site: left antecubital; vc 15:22 Follow up: Response: No adverse reaction; Pain is decreased iw 14:28 Drug: Zofran 4 mg Route: IVP; Site: left antecubital; vc 15:22 Follow up: Response: No adverse reaction iw Disposition: 06/06/19 14:30 Discharged to Home. Impression: Pelvic and perineal pain - bulky cervix per CT, Leiomyoma of uterus, unspecified - reported, Unspecified ovarian cysts - right 1.4 cm , Other abnormal uterine and vaginal bleeding, Abnormal uterine and vaginal bleeding, unspecified, Urinary tract infection, site not specified. - Condition is Stable. - Discharge Instructions: Abdominal Pain, Adult, Uterine Fibroids, Pelvic Pain, Female, Urinary Tract Infection, Adult, Dysfunctional Uterine Bleeding, Pelvic Pain, Female, [id number], Urinary Tract Infection, Adult, [id number]. - Prescriptions for Tylenol- Codeine #3 300-30 mg Oral Tablet - take 2 tablets by ORAL route every 6 hours As needed; 24 tablet. Zofran 4 mg Oral Tablet - take 1 tablet by ORAL route every 12 hours As needed; 20 tablet. Cipro 500 mg Oral Tablet - take 1 tablet by ORAL route every 12 hours for 7 days; 14 tablet. - Medication Reconciliation Form, Thank You Letter, Antibiotic Education, Prescription Opioid Use form. - Follow up: Private Physician; When: 2 - 3 days; Reason: Recheck today's complaints, Continuance of care, Re-evaluation by your physician. Follow up: Alexandra Brooks; When: 2 - 3 days; Reason: Recheck today's complaints, Continuance of care, Re-evaluation by your physician. - Problem is new. - Symptoms have improved. Signatures: Dispatcher [employer] EDMS Anselmo Williamson MD MD cha Leal, Jahala, RN RN jl7 Mary Monterroso RN RN vc Williams, Irene RN iw Corrections: (The following items were deleted from the chart) 15:21 14:30 06/06/2019 14:30 Discharged to Home. Impression: Pelvic and perineal pain - bulky vc cervix per CT; Leiomyoma of uterus, unspecified - reported; Unspecified ovarian cysts - right 1.4 cm ; Other abnormal uterine and vaginal bleeding; Abnormal uterine and vaginal bleeding, unspecified; Urinary tract infection, site not specified. Condition is Stable. Discharge Instructions: Abdominal Pain, Adult, Uterine Fibroids, Pelvic Pain, Female, Dysfunctional Uterine Bleeding, Pelvic Pain, Female, [id number], Urinary Tract Infection, Adult, Urinary Tract Infection, Adult, [id number]. Prescriptions for Tylenol-Codeine #3 300-30 mg Oral Tablet - take 2 tablets by ORAL route every 6 hours As needed; 24 tablet, Zofran 4 mg Oral Tablet - take 1 tablet by ORAL route every 12 hours As needed; 20 tablet, Cipro 500 mg Oral Tablet - take 1 tablet by ORAL route every 12 hours for 7 days; 14 tablet. and Forms are Medication Reconciliation Form, Thank You Letter, Antibiotic Education, Prescription Opioid Use. Follow up: Private Physician; When: 2 - 3 days; Reason: Recheck today's complaints, Continuance of care, Re-evaluation by your physician. Follow up: Alexandra Brooks; When: 2 - 3 days; Reason: Recheck today's complaints, Continuance of care, Re-evaluation by your physician. Problem is new. Symptoms have improved. harvinder
--- NOTE | 2019-06-06 14:31 | ER ---
Nurse's Notes [facility] Name: Carolin Torres Age: 39 yrs Sex: Female : 1980 Arrival Date: 06/06/2019 Time: 12:34 Bed 25 Private MD: Diagnosis: Pelvic and perineal pain-bulky cervix per CT;Leiomyoma of uterus, unspecified-reported;Unspecified ovarian cysts-right 1.4 cm ;Other abnormal uterine and vaginal bleeding;Abnormal uterine and vaginal bleeding, unspecified;Urinary tract infection, site not specified Presentation: 06/06 12:36 Presenting complaint: Patient states: Have a tumor on my cervix, Hysterectomy scheduled jl7 for July 10, been on my period for 3 days and passing grapefruit size blood clots with severe cramping, tried to call my doctor but they said they were taking lunch and wouldn't be able to call me back until 2 after lunch. Transition of care: patient was not received from another setting of care. Onset of symptoms was June 03, 2019. Risk Assessment: Do you want to hurt yourself or someone else? Patient reports no desire to harm self or others. Initial Sepsis Screen: Does the patient meet any 2 criteria? No. Patient's initial sepsis screen is negative. Does the patient have a suspected source of infection? No. Patient's initial sepsis screen is negative. Care prior to arrival: None. 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 - Coronavirus screen:: The patient has NOT traveled to [place], [place], or [place] in the past 14 days. Proceed with normal triage process as indicated. - Social history:: Smoking status: Patient denies any tobacco usage or history of. - Family history:: not pertinent. - Ebola Screening: : No symptoms or risks identified at this time. Screenin:45 Abuse screen: Denies threats or abuse. Nutritional screening: No deficits noted. vc Tuberculosis screening: No symptoms or risk factors identified. Fall Risk None identified. Assessment: 13:00 General: Appears in no apparent distress. uncomfortable, Behavior is anxious, crying. vc Pain: Complains of pain in abdomen and left lower quadrant and right lower quadrant and suprapubic area. Neuro: Level of Consciousness is awake, alert, obeys commands. Cardiovascular: Patient's skin is warm and dry. Respiratory: Airway is patent Respiratory effort is even, unlabored. GI: No signs and/or symptoms were reported involving the gastrointestinal system. : Reports cramping, vaginal bleeding that is bright red, with clots. EENT: No signs and/or symptoms were reported regarding the EENT system. Derm: Skin temperature is warm. Musculoskeletal: Range of motion: intact in all extremities. 13:30 Reassessment: Patient to ultrasound via wheelchair. vc 14:00 Reassessment: Patient and/or family updated on plan of care and expected duration. Pain vc level reassessed. Patient states feeling better. 15:19 Reassessment: Patient appears in no apparent distress at this time. Patient and/or iw family updated on plan of care and expected duration. Pain level reassessed. Patient is alert, oriented x 3, equal unlabored respirations, skin warm/dry/pink. pt is to follow up at Dr. Brooks's office immediately after discharge, pt has been given copy of labs/CT/US to take to office. Pt and verbalized understanding. Vital Signs: 12:39 BP 120 / 78; Pulse 88; Resp 16 S; Temp 98.6(O); Pulse Ox 98% on R/A; Weight 72.57 kg jl7 (R); Height 5 ft. 1 in. (154.94 cm) (R); Pain 7/10; 13:00 BP 125 / 76; Pulse 68; Resp 18; Pulse Ox 100% on R/A; Pain 10/10; vc 14:00 BP 113 / 67; Pulse 74; Resp 16; Pulse Ox 100% ; vc 15:00 BP 118 / 70; Pulse 72; Resp 15; Pulse Ox 100% on R/A; vc 12:39 Body Mass Index 30.23 (72.57 kg, 154.94 cm) 7 ED Course: 12:34 Patient arrived in ED. ag5 12:39 Triage completed. jl7 12:39 Arm band placed on right wrist. jl7 12:45 Patient has correct armband on for positive identification. Placed in gown. Bed in low vc position. Call light in reach. Side rails up X 1. 12:46 Anselmo Williamson MD is Attending Physician. harvinder 12:54 Mary Monterroso, RN is Primary Nurse. vc 13:00 Initial lab(s) drawn, by me, sent to lab. Inserted saline lock: 20 gauge in left iw antecubital area, using aseptic technique. Blood collected. 13:23 EKG done, by biochemistry technician. reviewed by Anselmo Williamson MD. at1 13:47 US Transvaginal Study (Probe) In Process Unspecified. EDMS 14:09 CT Abd/Pelvis - IV Contrast Only In Process Unspecified. EDMS 14:29 Alexandra Brooks MD is Referral Physician. harvinder 15:21 No provider procedures requiring assistance completed. IV discontinued, intact, iw bleeding controlled, No redness/swelling at site. Pressure dressing applied. Administered Medications: 13:04 Drug: NS 0.9% 1000 ml Route: IV; Rate: 1 bolus; Site: left antecubital; vc 13:10 Drug: Zofran 4 mg Route: IVP; Site: left antecubital; vc 15:22 Follow up: Response: No adverse reaction iw 13:12 Drug: morphine 4 mg Route: IVP; Site: left antecubital; vc 15:22 Follow up: Response: No adverse reaction; Pain is decreased iw 13:30 Drug: Rocephin 1 grams Route: IV; Rate: per protocol; Site: left antecubital; vc 14:28 Drug: morphine 4 mg Route: IVP; Site: left antecubital; vc 15:22 Follow up: Response: No adverse reaction; Pain is decreased iw 14:28 Drug: Zofran 4 mg Route: IVP; Site: left antecubital; vc 15:22 Follow up: Response: No adverse reaction iw Outcome: 14:30 Discharge ordered by . harvinder 15:21 Patient left the ED. vc 15:21 Discharged to home ambulatory, with family. iw 15:21 Condition: good 15:21 Discharge instructions given to patient, family, Instructed on discharge instructions, follow up and referral plans. medication usage, Demonstrated understanding of instructions, follow-up care, medications, Prescriptions given X 3. Signatures: Dispatcher [employer] EDAnselmo Ocampo, Carolin Mccray MD, cha RN RN Mary Szymanski, sanitation manager EKG Tat1 Jeremías Cota RN RN jl7 Todd Pitts ag5 Mary Monterroso RN RN vc
--- NOTE | 2019-06-06 15:29 | EKG ---
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
[2019-06-06 16:19] VITALS: BP 120/78; TEMP 98.6; O2SAT 98
== END 2019-06-06 15:21 | disposition home or self-care (01) ==
LOC: ER 12:31
DX: D25.9 Leiomyoma of uterus, unspecified (principal); N83.201 Unspecified ovarian cyst, right side; N93.9 Abnormal uterine and vaginal bleeding, unspecified; N39.0 Urinary tract infection, site not specified; I10 Essential (primary) hypertension
CPT/HCPCS: 93005; 87088; 85025; 87086; 80048; 36415; 86900; 86850; 81025; 86901; 80076; 81003; 83690; 74177; 76830; Q9967; J0696; J7030; J2405 ×2

== ENCOUNTER 2019-06-07 06:00 | Day surgery (SDC) | payer OTHER ==
[2019-06-07 06:35] LABS: Specific Gravity 1.015 (1.005-1.030)
[2019-06-07] MEDS ORDERED: Ringers Lactate 1,000 ML IV ONE (06:48)
[2019-06-07] MEDS ORDERED: propofoL 200 MG/20 ML VIAL IV ONE (07:13)
[2019-06-07] MEDS ORDERED: ONDANSETRON 4 MG/2 ML VIAL ONE ×2 (07:14→08:52)
[2019-06-07] MEDS ORDERED: MIDAZOLAM HCL 2 MG/2 ML INJ ONE (07:14)
[2019-06-07] MEDS ORDERED: LIDOCAINE 2% MPF 5 ML VIAL ONE (07:14)
[2019-06-07] MEDS ORDERED: FENTANYL CITR 100 MCG/2 ML ONE (07:14)
[2019-06-07] MEDS ORDERED: LIDOCAINE 1% W/EPI 1:100,000 MDV 20 ML VIAL ONE (07:53)
[2019-06-07] MEDS ORDERED: NA CHLORIDE 0.9% 1,000 ML ONE (07:53)
[2019-06-07] MEDS ORDERED: KETOROLAC 30 MG/ML INJ ONE (08:33)
[2019-06-07] MEDS: HYDROMORPHONE HCL 1 MG/ML INJ ONE ×2 (08:59→09:03)
[2019-06-07] MEDS ORDERED: HYDROCODONE/APAP 5/325 MG TAB ONE (09:38)
[2019-06-07 10:56] VITALS: BP 124/70; TEMP 97.5; O2SAT 97
--- NOTE | 2019-06-07 20:10 | OP ---
Date of Procedure: 06/07/2019 Surgeon: Alexandra Brooks MD Preoperative Diagnoses: Cervical mass and menorrhagia and dysmenorrhea and pelvic pain. Postoperative Diagnoses: Cervical mass and menorrhagia and dysmenorrhea and pelvic pain. Procedures Performed: 1.Hysteroscopy, dilatation and curettage with MyoSure Lite. 2.Cervical mass excision, possible myoma. Anesthesia: General with LMA. Specimens: Endometrial curettings and cervical mass. Complications: No complications. Drains: Vaginal packing with packing of the cervix was done and this is to be pulled in an hour post op. Findings: Mid cervical mass that is dilating the cervix to about 2 cm was present, about 2 cm in siz e. Endometrial cavity empty. Curettings were performed with the MyoSure Lite. Description Of Procedure: The patient is a 39-year-old with heavy menstrual bleeding, pelvic pain, a nd dysmenorrhea. She was evaluated in the office earlier this month and her periods started yesterda y and it became very heavy and passed a large golf ball size clots with which she had associated pain and the pain was very severe to the point the patient had gone to the ER. After evaluation in the e mergency room, her hemoglobin was stable. The ultrasound showed unremarkable uterus and endometrial lining; however, thickened cervix. Correlating the pelvic examination findings of the cervical mass with the ultrasound, this was presumed to be possibly a cervical mass, possible myoma. Dilating the cervix, unsure if it is endometrial in origin and if there are more myomata that are the reason for h er bleeding or endometrial mass, so she was consented for hysteroscopy, D and C, and removal of the c ervical mass and possible myomectomy if any endometrial masses were seen. After re-consenting her this morning, I am bringing her back to the OR. She was placed in a supine f ashion. General anesthesia given with LMA, placed in a dorsal lithotomy position using Michael stirrup s. Prep x3 with Betadine was performed. Speculum placed to expose the cervix. Anterior lip grasped with 2 Allis clamps. The cervical mass was left intact so that this could have active on the comput er for the procedure. The MyoSure lens was used for passage through the cervical canal, traversing a round the mass getting into the uterine cavity. The cavity was unremarkable. Endometrium thickened. Both tubal ostia visualized cavity on the distorted. The suction sheath was removed and the Lite d evice was placed. Entire endometrium was curetted appropriately. Once this was done and the specime ns were handed out, pull the scope out through the mid cervix and the base of the mass was cut with t he help of the cutter and slowly the cutter was removed and the rest of the mass was removed by holdi ng it with a tissue forceps and then grasping the mass twisting it and it was removed. The base of t he mass was visualized and it was bleeding, so 2-inch vaginal packing was taken and was placed packed into the cervix tightly. There was good hemostasis. After the packing was done, there was no furth er bleeding, so this packing was left in there,with packing was pushed in the vagina and the plan was to leave this in place for an hour for hemostasis and then remove it and then discharge the patient home. The patient was recovered from anesthesia in the OR. Instrument, needle, and sponge counts we re correct. She was taken to PACU in stable condition. She has an appointment to follow up with me in 1 week. She has Tylenol No. 3, prescription from the ER yesterday. No further pain medications h ave been given to the patient. No antibiotics. TINO/CONRADO Voice ID: [id number] Report ID: [id number]
== END 2019-06-07 10:10 | disposition home or self-care (01) ==
LOC: OR 06:00
PROVIDERS: ATTEND Obstetrics & Gynecology
PROC: 0UJD8ZZ Inspection of Uterus and Cervix, Via Natural or Artificial Opening Endoscopic (ICD-10-PCS; 2019-06-07)
PROC: 0UBC7ZZ Excision of Cervix, Via Natural or Artificial Opening (ICD-10-PCS; 2019-06-07)
PROC: 0UDB7ZX Extraction of Endometrium, Via Natural or Artificial Opening, Diagnostic (ICD-10-PCS; principal; 2019-06-07 07:30)
DX: N92.0 Excessive and frequent menstruation with regular cycle (principal); D26.0 Other benign neoplasm of cervix uteri; N94.12 Deep dyspareunia; N94.6 Dysmenorrhea, unspecified; I10 Essential (primary) hypertension; E78.00 Pure hypercholesterolemia, unspecified; Z80.3 Family history of malignant neoplasm of breast; Z80.41 Family history of malignant neoplasm of ovary; Z80.0 Family history of malignant neoplasm of digestive organs
CPT/HCPCS: 81025; 88305; 58558; 57500; J2704; J2250; J3010; J1170; J7120; J7030; J2405 ×2

== ENCOUNTER 2019-07-05 06:30 | Day surgery (SDC) | payer OTHER ==
[2019-07-02 10:49] LABS: Urine Appearance CLEAR; Urine Bilirubin NEGATIVE (NEG); Urine Blood NEGATIVE (NEG); Urine Color YELLOW; Urine Glucose NEGATIVE (NEG); Urine Protein NEGATIVE (NEG); Urine Specific Gravity 1.015 (1.005-1.030); Urine Urobilinogen 0.2 mg/dL (0.2-1.0)
[2019-07-02 10:50] LABS: Urine Microscopic Reflex NO UMIC
[2019-07-02 10:53] LABS: Absolute Lymphocytes (CBC) 2.7 K/uL (0.7-4.9); Basophils % 0.5 % (0-1.3); MPV 8.1 fL (7.6-11.3); RBC Red Blood Cell Count 4.66 M/uL (3.86-4.86)
[2019-07-05] MEDS ORDERED: Ringers Lactate 1,000 ML IV ONE ×2 (07:04→12:54)
[2019-07-05] MEDS ORDERED: BUPIVACAINE 0.25% PF 30 ML VIAL ONE (07:04)
[2019-07-05] MEDS ORDERED: CEFAZOLIN/SWI 2gm 2 GM/20 ML SYR ONE (07:07)
[2019-07-05] MEDS ORDERED: SCOPOLAMINE HYDROBROMIDE PATCH TD ONE (07:07)
[2019-07-05] MEDS ORDERED: ROCURONIUM 50 MG/5 ML VIAL IV ONE (07:09)
[2019-07-05] MEDS ORDERED: FENTANYL CITR 100 MCG/2 ML ONE (07:09)
[2019-07-05] MEDS ORDERED: propofoL 200 MG/20 ML VIAL IV ONE (07:09)
[2019-07-05] MEDS ORDERED: MIDAZOLAM HCL 2 MG/2 ML INJ ONE (07:10)
[2019-07-05] MEDS ORDERED: LIDOCAINE 2% MPF 5 ML VIAL ONE (07:10)
[2019-07-05] MEDS ORDERED: KETOROLAC 30 MG/ML INJ ONE (08:29)
[2019-07-05] MEDS ORDERED: dexAMETHasone 10 MG/ML VIAL ONE (08:29)
[2019-07-05] MEDS ORDERED: ONDANSETRON 4 MG/2 ML VIAL ONE (08:29)
[2019-07-05] MEDS ORDERED: MEPERIDINE HCL 25 MG/0.5 ML ONE (08:35)
[2019-07-05] MEDS ORDERED: NS 0.9% VIAL 30 ML ONE (08:35)
[2019-07-05] MEDS ORDERED: MORPHINE 10 MG/ML VIAL ONE (08:35)
[2019-07-05] MEDS ORDERED: VECURONIUM 10 MG/VIAL IV ONE (08:35)
[2019-07-05] MEDS ORDERED: GLYCOPYRROLATE 0.2 MG/ML SYR ONE ×2 (08:40→10:07)
[2019-07-05] MEDS: Ringers Lactate 1,000 ML IV ONE ×2 (08:48→09:00)
[2019-07-05] MEDS ORDERED: NEOSTIGMINE 1 MG/ML -5 ML ONE (10:10)
[2019-07-05] MEDS ORDERED: HYDROMORPHONE HCL 1 MG/ML INJ ONE (11:06)
[2019-07-05] MEDS ORDERED: PROMETHAZINE INJ 25 MG/ML AMP ONE (11:06)
[2019-07-05] MEDS ORDERED: HYDROCODONE/APAP 5/325 MG TAB ONE (13:15)
[2019-07-05] MEDS ORDERED: IBUPROFEN 200 MG TAB PO ONE (14:05)
[2019-07-05] MEDS ORDERED: IBUPROFEN 400 MG TAB ONE (14:06)
[2019-07-05 14:31] VITALS: BP 134/78; TEMP 99.1; O2SAT 98
--- NOTE | 2019-07-05 22:31 | OP ---
Date of Procedure: 07/05/2019 Surgeon: Alexandra Brooks MD Fire Sprinkler Fitter: Shannon Gandara. 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 Does have pelvic pain and constipation. Postoperative Diagnoses: Excessive frequent menstruation, history of adenomyoma prolapse out of the cavity, dysmenorrhea, dyspareunia, and endometriosis. Does have pelvic pain and constipation. Procedures Performed: Total laparoscopic hysterectomy, bilateral salpingectomy, bilateral ovariopexy , and lysis of adhesions of the ovary from the endometriosis. Other than the periureteric endometrio sis near the ureteric tunnels on both sides, endometriosis was removed along with the uterine specime n. Estimated Blood Loss: Minimal. Specimens: Uterus, bilateral tubes. Complications: None. Drains: None. Condition: Stable. Findings: Endometriosis was seen in the lateral aspects closer to the periureteric area at the tunne l on both sides. The left was more than on the right. There were dense adhesions of the ovary to th e lateral sidewall, and these had to be detached by dissection. Ovaries appeared to be completely un remarkable. Physiologic cyst on the left side. At the end of the procedure, the ovaries were viable and attached to the detached ends of the round ligament on their respective sides bilaterally. Description Of Procedure: Patient is a 39-year-old lady who presented with pelvic pain, a prolapsing cervical mass which later on investigation was myoma on hysteroscopy and removal of the myoma and D and C. This mass was an adenomyoma, and endometrium did not have hyperplasia, atypia, or malignancy. So, discussed about the different options the patient had, which included conservative treatment op tions, surgery. Patient wanted to proceed with hysterectomy because her pain had gotten worse to the point that she was unable to tolerate it any further. She also did not want to have an ablation whi ch would just leave her uterus which had an adenomyoma, which was most likely insurance claims representative of adeno myosis in the uterus. If we left alone, this would decrease the chances of resolution, so she wanted to proceed with a hysterectomy at this time. Fully understands the benefits and risks of this proce dure. She also has a special needs child and did not want to take the risk of coming back for multip le surgeries and risk of ablation failure, although there is only 10% risk and comply with the restri ctions after surgery for hysterectomy. So, laparoscopic hysterectomy, bilateral salpingectomy, prese rvation of the ovaries were discussed with the patient. Patient was consented. If there was endomet riosis, that could be removed. Plan was to remove the endometriosis as well. Description Of Procedure: After informed consent was verified, [facility] on the operating table. General anesthesia was given. Placed in a dorsal litho john position. Arms were tucked by the side. Abdomen, vulva, vagina, and perineum were prepped and draped in a sterile fashion. SCDs were started. Ancef 2 g was given. A speculum was placed to expo se the cervix. Anterior lip was grasped with 2 Allis clamps. Not the VCare, but a VCare-like altern ative was inserted and fixed in place. Ruiz was placed and then attached to a drainage bag, which w as an LR bag, emptied 300 through cysto tubing. This area was then draped. A 1 cm infraumbilical incision was made with a scalpel using the open laparoscopy technique. Fascia was incised, tagged with 0 Vicryl sutures on both sides. Peritoneum was entered sharply. S-retracto rs were placed. Site of entry was unremarkable. Upper abdominal surface was unremarkable as well. No endometriosis was noted. Patient was placed in Trendelenburg. There were pale-colored nodular le sions of endometriosis in bilateral sidewalls. The right ovary was adhered to it, and so this was sc raped off and the adhesions were taken down sharply. On the left side, there was endometriosis at the ureteric tunnel as well just as on the right side. Rest of the endometriosis appeared to be on the uterus itself. Five left lower quadrant, 10 suprapubic ports were placed after injecting Marcaine in all sides. Trocars were placed without problems. The bladder flap was opened up in the midline in the center do wn and marked and cut with scissors. Then, the anterior broad ligament was opened up on the left funmi e with sharp dissection and VCare. Then, the round ligament, utero-ovarian ligament, mesosalpinx, tu be were all taken down. Then, posterior broad ligament was taken down to the uterosacral and the ves sels were skeletonized. Once they were exposed, the endometriosis had to be removed around the periu reteric area, which was left in place. It was too close to the uterosacral. The uterosacral endo he re was included within the specimen by dissecting inferior to the implants here. Once this was done, the endo on the lateral blake was minor enough to leave it alone and also probably would need possib le ureteric stenting in order for me to remove it. Then on the right side, similar dissection was performed. All the utero-ovarian ligament, mesosalpin x, tube, round ligament were taken down. Anterior broad ligament was connected. Posterior broad lig ament was taken down to the uterosacral on this side. Skeletonized the vessels. The bladder flap wa s raised by making an incision over the VCare cup, entering the vesicovaginal space and pushing the b ladder down. Then, the vessels were taken down after making a medial slot with the monopolar for my bipolar to go. Then bipolar basket tip was used and then LigaSure to take down the vessels, cardinal ligaments on the right and then the left side. Circumferential colpotomy with a monopolar hook blad e. Specimen was removed through the vagina. Both tubes were removed with the help of the bipolar ve ssel sealer. Ovaries were both viable. There was a cyst on the left ovary which appeared to be phys iological. Ovariopexy then was performed with the help of a 3-0 Monocryl suture in a [id number] fashion to the base of the round ligament on both sides. Once the extracorporeal knots were tied an d the tails were cut short, then colpotomy was thoroughly irrigated, suctioned, and closed with the h elp of 0 PDS simple angle sutures on both sides and 3 [id number] in the middle including the d istal uterosacral to both anterior and posterior fascial layers of the vaginal wall. Thorough irriga tion and suction were performed. No evidence of electrical, mechanical, or thermal injury to the ure ters on both sides. Trocars were removed. Injection with Marcaine was done. Gas was desufflated fr om the peritoneal cavity. Fascia at the umbilicus was closed with the help of the tagged 0 Vicryl deutsch tures, tied to each other at both ends and then a simple 0 Vicryl stitch at the suprapubic fascial in cision. The skin incisions were closed with the help of 4-0 interrupted Vicryl sutures. VCare and t he vaginal occluder were removed. Instrument, needle, and sponge counts were correct at the end of t he case. EBL was minimal. Patient tolerated the procedure well. No complications. She will follow up with me in 1 week and then 4 weeks. TINO/CONRADO Voice ID: [id number] Report ID: [id number]
== END 2019-07-05 14:10 | disposition home or self-care (01) ==
LOC: OR 06:30
PROVIDERS: ATTEND Obstetrics & Gynecology
PROC: 0UT74ZZ Resection of Bilateral Fallopian Tubes, Percutaneous Endoscopic Approach (ICD-10-PCS; 2019-07-05)
PROC: 0US24ZZ Reposition Bilateral Ovaries, Percutaneous Endoscopic Approach (ICD-10-PCS; 2019-07-05)
PROC: 0UT94ZZ Resection of Uterus, Percutaneous Endoscopic Approach (ICD-10-PCS; principal; 2019-07-05 07:30)
DX: N92.0 Excessive and frequent menstruation with regular cycle (principal); N94.6 Dysmenorrhea, unspecified; N94.12 Deep dyspareunia; N80.0 Endometriosis of uterus; N80.8 Other endometriosis; N73.6 Female pelvic peritoneal adhesions (postinfective); N83.8 Other noninflammatory disorders of ovary, fallopian tube and broad ligament; K59.00 Constipation, unspecified; I10 Essential (primary) hypertension; J45.909 Unspecified asthma, uncomplicated; E78.00 Pure hypercholesterolemia, unspecified; Z80.41 Family history of malignant neoplasm of ovary; Z80.3 Family history of malignant neoplasm of breast
CPT/HCPCS: 58571; 85025; 36415; 86900 ×2; 86850 ×2; 81025; 86901 ×2; 88307; 81003; 58679; J2704; J2550; J2250; J3010; J1100; J2175; J1170; J2710; J0690; J7120 ×3; J2405

== ENCOUNTER 2019-10-16 19:08 | Emergency (ER) | payer OTHER ==
[2019-10-16] MEDS ORDERED: ONDANSETRON 4 MG/2 ML VIAL ONE (19:55)
[2019-10-16] MEDS ORDERED: NA CHLORIDE 0.9% 1,000 ML ONE (19:55)
[2019-10-16 19:56] LABS: Absolute Lymphocytes (CBC) 3.4 K/uL (0.7-4.9); Basophils % 0.4 % (0-1.3); Lymphocytes % 26.4 % (15.3-44.8); RBC Red Blood Cell Count 4.56 M/uL (3.86-4.86)
[2019-10-16 20:08] LABS: ALT/SGPT 29 U/L (12-78); AST/SGOT 24 U/L (15-37); Alkaline Phosphatase 85 U/L (45-117); BUN Blood Urea Nitrogen 22 mg/dL (7-18); Bicarbonate 22 mmol/L (21-32); Bilirubin Direct < 0.1 mg/dL (0-0.2); Bilirubin Total 0.3 mg/dL (0.2-1.0); Glucose Level 120 mg/dL (74-106); Lipase 114 U/L (73-393); Potassium 3.9 mmol/L (3.5-5.1); Protein, Total 7.4 g/dL (6.4-8.2); Sodium Level 140 mmol/L (136-145)
[2019-10-16] MEDS ORDERED: MORPHINE 2 MG/ML SYR ONE ×2 (20:08→21:12)
--- NOTE | 2019-10-16 20:49 | RAD REPORT ---
EXAM DESCRIPTION: CT - Abdomen Pelvis W Contrast - 10/16/2019 8:26 pm CLINICAL HISTORY: ABD PAIN COMPARISON: Abdomen Pelvis W Contrast dated 06/06/2019 TECHNIQUE: Biphasic, helical CT imaging of the abdomen and pelvis was performed following 100 ml non -ionic IV contrast. No oral contrast administered. All CT scans are performed using dose optimization technique as appropriate and may include automated exposure control or mA/KV adjustment according to patient size. FINDINGS: No suspicious findings in the lung bases. The liver, spleen, and pancreas show no suspicious findings. Gallbladder and biliary tree are also wi thout suspicious finding. Symmetric renal function is seen with no hydronephrosis or suspicious renal mass. No pyelonephritis o r acute parenchymal process. Patient has numerous bilateral calyx and pyramid calcifications up to 12 mm in size. These have not clearly changed from May comparison. No obstructing calculus. No adre nal abnormalities. No urinary bladder abnormality. Uterus is absent. No ovarian abnormalities. No dilated bowel loops or bowel wall thickening. Moderate stool volume seen throughout the colon. No suspicion for appendicitis. The appendix is not well visualized. A few small mesenteric lymph nodes a re present. Patient has numerous fluid-filled small bowel loops. No wall thickening or edema. No free air, free fluid or inflammatory stranding. No hernia, mass or bulky lymphadenopathy. No suspicious bony findings. IMPRESSION: Small bowel enteritis pattern is evident. No obstruction, free air or surgically emergent finding. Numerous nonobstructing renal calculi similar to May 2019.
[2019-10-16] MEDS ORDERED: METOCLOPRAMIDE 10 MG/2mL INJ ONE (21:12)
[2019-10-16 21:47] LABS: Barbiturates NEGATIVE (NEGATIVE); Benzodiazepines NEGATIVE (NEGATIVE); Cocaine NEGATIVE (NEGATIVE); Methadone NEGATIVE (NEGATIVE); Opiates NEGATIVE (NEGATIVE); Phencyclidine NEGATIVE (NEGATIVE); THC Cannibis NEGATIVE (NEGATIVE)
[2019-10-16 21:48] LABS: METHAMPHETAM POSITIVE (NEGATIVE)
[2019-10-16 22:12] LABS: Urine Blood TRACE (NEG); Urine Glucose NEGATIVE (NEG); Urine Protein NEGATIVE (NEG); Urine pH 5.5 (5.0-7.0)
[2019-10-16 22:26] LABS: Creatine Phosphokinase 85 U/L (26-192)
--- NOTE | 2019-10-16 22:46 | ER ---
Nurse's Notes [facility] Name: Carolin Torres Age: 39 yrs Sex: Female : 1980 Arrival Date: 10/16/2019 Time: 19:12 Bed 5 Private MD: None, None Diagnosis: Generalized abdominal pain;Constipation, unspecified;Enteritis Presentation: 10/15 19:12 Chief complaint: EMS states: she had sudden onset of abdominal pain and nausea, pale, mg2 cold and diaphoretic, temp- 93.4 axillary, BP palpable 80, BGL- 104, given Zofran 4 mg IV and 350 ml NS. Coronavirus screen: Proceed with normal triage. Patient denies a cough. Patient denies shortness of breath or difficulty breathing. Patient denies measured and/or subjective temperature greater than 100.4F prior to today's visit. Patient denies travel on a cruise ship or to a country the [facility] currently lists as an affected area. Patient denies contact with known and/or suspected case of COVID-19. Ebola Screen: No symptoms or risks identified at this time. Initial Sepsis Screen: Does the patient meet any 2 criteria? No. Patient's initial sepsis screen is negative. Does the patient have a suspected source of infection? No. Patient's initial sepsis screen is negative. Risk Assessment: Do you want to hurt yourself or someone else? Patient reports no desire to harm self or others. Onset of symptoms was October 16, 2019. 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 - Social history:: Smoking status: Patient denies any tobacco usage or history of. Patient/guardian denies using alcohol, street drugs, IV drugs. Screenin:43 Abuse screen: Denies threats or abuse. Denies injuries from another. Nutritional mg2 screening: No deficits noted. Tuberculosis screening: No symptoms or risk factors identified. Fall Risk IV access (20 points). Assessment: 19:20 General: Appears in no apparent distress. comfortable, Behavior is calm, cooperative. mg2 Pain: Complains of pain in abdomen. Neuro: Level of Consciousness is awake, alert, obeys commands, Oriented to person, place, time, situation. Cardiovascular: Capillary refill < 3 seconds Patient's skin is warm and dry. Respiratory: Airway is patent Respiratory effort is even, unlabored, Respiratory pattern is regular, symmetrical. GI: Reports lower abdominal pain, upper abdominal pain, nausea. : No signs and/or symptoms were reported regarding the genitourinary system. EENT: No signs and/or symptoms were reported regarding the EENT system. Derm: Skin is intact, is healthy with good turgor. Musculoskeletal: Circulation, motion, and sensation intact. Capillary refill < 3 seconds. 19:21 Reassessment: pt on phone, requesting an update on pt at this time, updated sg that she is here and she is stable, pt spouse reports he will call back soon. 19:29 Reassessment: pt spouse on line again, holding to speak with nurse for patient but the sg line was disconnected per Diya. 19:44 Reassessment: spoke to the ( Nomi) [phone] -gave him some updates he will mg2 drop the phone to her. 20:20 Reassessment: patient sent to ct scan via stretcher. mg2 21:30 Reassessment: Keli (daughter) [phone]. ea 22:56 Reassessment: Patient and/or family updated on plan of care and expected duration. Pain ea level reassessed. Patient is alert, oriented x 3, equal unlabored respirations, skin warm/dry/pink. Discharge instruction given to patient, verbalized the understanding of instruction. Pt left ED via wheelchair per ED staff. Pt awaiting in lobby for to pick her up. Vital Signs: 19:12 BP 100 / 81; Pulse 70; Resp 18; Temp 97.5(O); Pulse Ox 100% on R/A; mg2 19:44 BP 114 / 80; Pulse 72; Resp 18; Pulse Ox 100% on R/A; mg2 20:04 BP 120 / 72; Pulse 70; Resp 18; Pulse Ox 100% on R/A; mg2 21:07 BP 133 / 90; Pulse 78; Resp 18; Pulse Ox 98% on R/A; mg2 22:11 BP 126 / 90; Pulse 84; Resp 18; Pulse Ox 98% on R/A; mg2 ED Course: 19:12 Patient arrived in ED. mg2 19:12 Haroon Mckeon MD is Attending Physician. 7 19:14 Triage completed. mg2 19:15 Raffy Zazueta, RN is Primary Nurse. mg2 19:43 Patient has correct armband on for positive identification. monitor worker on. Pulse mg2 ox on. NIBP on. Door closed. Warm blanket given. 19:43 No provider procedures requiring assistance completed. Maintain EMS IV. Dressing mg2 intact. Good blood return noted. Site clean \T\ dry. Gauge \T\ site: 20 \T\ LAC. 20:17 Arm band placed on. mg2 20:26 CT Abd/Pelvis - IV Contrast Only In Process Unspecified. EDMS 20:50 None, None is Private Physician. sg 22:47 IV discontinued, intact, bleeding controlled, No redness/swelling at site. Pressure mg2 dressing applied. Administered Medications: 19:51 Drug: NS 0.9% 1000 ml Route: IV; Rate: 1000 ml; Site: left antecubital; mg2 22:12 Follow up: Response: No adverse reaction; IV Status: Completed infusion; IV Intake: mg2 1000ml 19:51 Drug: Zofran (Ondansetron) 4 mg Route: IVP; Site: left antecubital; mg2 22:12 Follow up: Response: No adverse reaction mg2 20:04 Not Given (Physician Discretion): morphine 2 mg IVP once; (PAIN>8) RASS on ADMN: mg2 Combtv4, Very Agttd3, Agttd2, Rstlss1, AlertClm0, Drwsy-1, LtSdtn-2, ModSdtn-3, DpSdtn-4, UnArsble-5 x2 20:04 Drug: morphine 2 mg Route: IVP; Site: left antecubital; mg2 21:42 Follow up: Response: No adverse reaction; Pain is decreased; RASS: Alert and Calm (0) ea 21:07 Drug: morphine 2 mg Route: IVP; Site: right antecubital; mg2 22:11 Follow up: Response: No adverse reaction mg2 21:07 Drug: Reglan 10 mg Route: IVP; Site: right antecubital; mg2 22:11 Follow up: Response: No adverse reaction; Marked relief of symptoms mg2 Intake: 22:12 IV: 1000ml; Total: 1000ml. mg2 Outcome: 22:45 Discharge ordered by MD. perales 22:58 Discharged to home via wheelchair, with family. martir 22:58 Condition: stable 22:58 Discharge instructions given to patient, Instructed on discharge instructions, follow up and referral plans. medication usage, Demonstrated understanding of instructions, follow-up care, medications, Prescriptions given X 4. 22:58 Patient left the ED. ea Signatures: Dispatcher [employer] EDMS Fazal Bahena RN RN sg Antunez, Elena, RN RN ea Gardose, Michele, RN RN mg2 Holmes, Maurice, MD MD [id number]
--- NOTE | 2019-10-16 22:47 | EDPHYS ---
Physician Documentation [facility] Name: Carolin Torres Age: 39 yrs Sex: Female : 1980 Arrival Date: 10/16/2019 Time: 19:12 Bed 5 Private MD: None, None ED Physician Haroon Mckeon HPI: 10/15 19:17 This 39 yrs old Female presents to ER via EMS with complaints of Abdominal mh7 Pain. 19:17 The patient presents with abdominal pain that is diffuse. Onset: The symptoms/episode mh7 began/occurred just prior to arrival, today. The symptoms do not radiate. Associated signs and symptoms: Pertinent positives:. 19:18 Associated signs and symptoms: Pertinent positives:. mh7 19:18 Associated signs and symptoms: Pertinent positives: nausea, Pertinent negatives: mh7 anorexia, blood in stools, chest pain, constipation, diarrhea, dysuria, fever, headache, hematuria, palpitations, shortness of breath, vaginal discharge, vomiting, vomiting blood. The symptoms are described as intermittent, vague, waxing/waning. Modifying factors: The symptoms are alleviated by nothing, the symptoms are aggravated by nothing. Severity of pain: At its worst the pain was severe just prior to arrival, today, in the emergency department the pain has improved moderately. 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 She denies any fever, chest pain, SOB, vomiting, diarrhea, dysuria, or other complaints.. 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 - Social history:: Smoking status: Patient denies any tobacco usage or history of. Patient/guardian denies using alcohol, street drugs, IV drugs. ROS: 19:18 Constitutional: Negative for fever, chills, and weight loss, Eyes: Negative for injury, mh7 pain, redness, and discharge, ENT: Negative for injury, pain, and discharge, Neck: Negative for injury, pain, and swelling, Cardiovascular: Negative for chest pain, palpitations, and edema, Respiratory: Negative for shortness of breath, cough, wheezing, and pleuritic chest pain, Back: Negative for injury and pain, : Negative for injury, bleeding, discharge, and swelling, MS/Extremity: Negative for injury and deformity, Skin: Negative for injury, rash, and discoloration, Neuro: Negative for headache, weakness, numbness, tingling, and seizure, Psych: Negative for depression, anxiety, suicide ideation, homicidal ideation, and hallucinations, Allergy/Immunology: Negative for hives, rash, and allergies, Endocrine: Negative for neck swelling, polydipsia, polyuria, polyphagia, and marked weight changes, Hematologic/Lymphatic: Negative for swollen nodes, abnormal bleeding, and unusual bruising. Exam: 19:25 Head/Face: Normocephalic, atraumatic. Eyes: Pupils equal round and reactive to light, mh7 extra-ocular motions intact. Lids and lashes normal. Conjunctiva and sclera are non-icteric and not injected. Cornea within normal limits. Periorbital areas with no swelling, redness, or edema. Neck: Trachea midline, no thyromegaly or masses palpated, and no cervical lymphadenopathy. Supple, full range of motion without nuchal rigidity, or vertebral point tenderness. No Meningismus. Chest/axilla: Normal chest wall appearance and motion. Nontender with no deformity. No lesions are appreciated. Cardiovascular: Regular rate and rhythm with a normal S1 and S2. No gallops, murmurs, or rubs. Normal PMI, no JVD. No pulse deficits. Respiratory: Lungs have equal breath sounds bilaterally, clear to auscultation and percussion. No rales, rhonchi or wheezes noted. No increased work of breathing, no retractions or nasal flaring. 19:25 Skin: Warm, dry with normal turgor. Normal color with no rashes, no lesions, and no evidence of cellulitis. MS/ Extremity: Pulses equal, no cyanosis. Neurovascular intact. Full, normal range of motion. Neuro: Awake and alert, GCS 15, oriented to person, place, time, and situation. Cranial nerves II-XII grossly intact. Motor strength 5/5 in all extremities. Sensory grossly intact. Cerebellar exam normal. Normal gait. Psych: Awake, alert, with orientation to person, place and time. Behavior, mood, and affect are within normal limits. 19:25 Constitutional: The patient appears non-diaphoretic, well developed, uncomfortable. 19:25 Abdomen/GI: Inspection: abdomen appears normal, Bowel sounds: normal, in all quadrants, Palpation: moderate abdominal tenderness, in all quadrants, Rectal exam: the exam is deferred, because of patient request, Indicators: McBurney's point is not tender, Jean's sign is negative, Rovsing's sign is negative, Obturator sign is negative, Psoas sign is negative, Liver: no appreciated palpable abnormalities, Hernia: not appreciated. 19:47 ECG was reviewed by the Attending Physician. [facility] Vital Signs: 19:12 BP 100 / 81; Pulse 70; Resp 18; Temp 97.5(O); Pulse Ox 100% on R/A; mg2 19:44 BP 114 / 80; Pulse 72; Resp 18; Pulse Ox 100% on R/A; mg2 20:04 BP 120 / 72; Pulse 70; Resp 18; Pulse Ox 100% on R/A; mg2 21:07 BP 133 / 90; Pulse 78; Resp 18; Pulse Ox 98% on R/A; mg2 22:11 BP 126 / 90; Pulse 84; Resp 18; Pulse Ox 98% on R/A; mg2 MDM: 19:27 Patient medically screened. [facility] 22:42 Differential diagnosis: appendicitis, bowel obstruction, cholecystitis, Cholelithiasis, [facility] diverticulitis, gastritis, myocardia ischemia or infarction, non-specific abd pain, pancreatitis, Peptic Ulcer Disease, Perf. Duodenal Ulcer, Pyelonephritis, Ureterolithiasis, urinary tract infection, substance abuse. Data reviewed: vital signs, nurses notes, EMS record, old medical records, lab test result(s), cardiac enzymes, CBC, drug level(s), electrolytes, urinalysis, EKG, radiologic studies, CT scan. 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 Interpretation: normal. Counseling: I had a detailed discussion with the patient and/or guardian regarding: the historical points, exam findings, and any diagnostic results supporting the discharge/admit diagnosis, lab results, radiology results, the need for outpatient follow up, to return to the emergency department if symptoms worsen or persist or if there are any questions or concerns that arise at home. Response to treatment: the patient's symptoms have resolved after treatment, the patient's blood pressure is in an acceptable range, mental status has returned to baseline, the patient no longer shows bradycardia, the patient is not short of breath, the patient is not tachycardic, the patient's pain is gone, the patient's temperature has normalized. 10/15 19:14 Order name: Basic Metabolic Panel; Complete Time: 22:33 7 10/15 19:14 Order name: CBC with Diff; Complete Time: 20:38 7 10/15 19:14 Order name: Hepatic Function; Complete Time: 22:33 7 10/15 19:14 Order name: Lipase; Complete Time: 22:33 [facility] 10/15 19:14 Order name: Type And Screen; Complete Time: 21:24 [facility] 10/15 19:17 Order name: Troponin (emerg Dept Use Only); Complete Time: 20:38 [facility] 10/15 19:14 Order name: CT Abd/Pelvis - IV Contrast Only; Complete Time: 21:24 7 10/15 19:25 Order name: UDS; Complete Time: 21:51 7 10/15 19:47 Order name: CREATININE WHOLE BLOOD [facility] 10/15 20:59 Order name: Urine Dipstick--Ancillary (enter results); Complete Time: 22:33 [facility] 10/15 21:58 Order name: Creatine Phosphokinase; Complete Time: 22:33 [facility] 10/15 19:14 Order name: IV Saline Lock; Complete Time: 19:38 7 10/15 19:14 Order name: Labs collected and sent; Complete Time: 19:38 7 10/15 19:14 Order name: EKG - Nurse/Tech; Complete Time: 19:47 7 10/15 19:25 Order name: Urine Dipstick-Ancillary (obtain specimen); Complete Time: 21:08 mh7 EC:47 Rate is 71 beats/min. Rhythm is regular, Normal Sinus Rhythm. QRS [place] is Normal. [place] mh7 interval is normal. QRS interval is normal. QT interval is normal. No Q waves. T waves are Normal. No ST changes noted. Clinical impression: Normal ECG. Administered Medications: 19:51 Drug: NS 0.9% 1000 ml Route: IV; Rate: 1000 ml; Site: left antecubital; mg2 22:12 Follow up: Response: No adverse reaction; IV Status: Completed infusion; IV Intake: mg2 1000ml 19:51 Drug: Zofran (Ondansetron) 4 mg Route: IVP; Site: left antecubital; mg2 22:12 Follow up: Response: No adverse reaction mg2 20:04 Not Given (Physician Discretion): morphine 2 mg IVP once; (PAIN>8) RASS on ADMN: mg2 Combtv4, Very Agttd3, Agttd2, Rstlss1, AlertClm0, Drwsy-1, LtSdtn-2, ModSdtn-3, DpSdtn-4, UnArsble-5 x2 20:04 Drug: morphine 2 mg Route: IVP; Site: left antecubital; mg2 21:42 Follow up: Response: No adverse reaction; Pain is decreased; RASS: Alert and Calm (0) ea 21:07 Drug: morphine 2 mg Route: IVP; Site: right antecubital; mg2 22:11 Follow up: Response: No adverse reaction mg2 21:07 Drug: Reglan 10 mg Route: IVP; Site: right antecubital; mg2 22:11 Follow up: Response: No adverse reaction; Marked relief of symptoms mg2 Disposition: 10/16/19 22:45 Discharged to Home. Impression: Generalized abdominal pain, Constipation, unspecified, Enteritis. - Condition is Stable. - Discharge Instructions: Constipation, Adult, Ugym-bh-Jflw, Abdominal Pain, Adult, Ivkg-av-Dqir. - Prescriptions for Zofran ODT 4 mg Oral tablet,disintegrating - place 1 tablet by TRANSLINGUAL route every 8 hours As needed; 10 tablet. Bentyl 20 mg Oral Tablet - take 1 tablet by ORAL route every 6 hours As needed; 20 tablet. Lactulose 10 gram/15 mL Oral Solution - take 30 milliliters by ORAL route once daily; 150 milliliter. Cipro 500 mg Oral Tablet - take 1 tablet by ORAL route every 12 hours for 5 days; 10 tablet. Dulcolax 10 mg Rectal Suppository - insert 1 suppository by RECTAL route once daily As needed; 5 suppository. - Medication Reconciliation Form, Thank You Letter, Antibiotic Education, Prescription Opioid Use form. - Follow up: Private Physician; When: 1 - 2 days; Reason: Worsening of condition, Recheck today's complaints, Re-evaluation by your physician. - Problem is new. - Symptoms have improved. Signatures: Dispatcher [employer] [facility] Debbie Dash RN RN ea Gardose, Michele, RN RN mg2 Holmes, Maurice, MD MD 7 Corrections: (The following items were deleted from the chart) 22:01 21:58 CREATINE PHOSPHOKINASE+C.LAB.BRZ ordered. [facility] 22:46 22:45 10/16/2019 22:45 Discharged to Home. Impression: Generalized abdominal pain; 7 Constipation, unspecified. Condition is Stable. Forms are Medication Reconciliation Form, Thank You Letter, Antibiotic Education, Prescription Opioid Use. Follow up: Private Physician; When: 1 - 2 days; Reason: Worsening of condition, Recheck today's complaints, Re-evaluation by your physician. Problem is new. Symptoms have improved. [facility] 22:58 22:45 10/16/2019 22:45 Discharged to Home. Impression: Generalized abdominal pain; ea Constipation, unspecified; Enteritis. Condition is Stable. Forms are Medication Reconciliation Form, Thank You Letter, Antibiotic Education, Prescription Opioid Use. Follow up: Private Physician; When: 1 - 2 days; Reason: Worsening of condition, Recheck today's complaints, Re-evaluation by your physician. Problem is new. Symptoms have improved. [facility]
[2019-10-16 23:11] VITALS: TEMP 97.5
[2019-10-16 23:22] VITALS: O2SAT 98
[2019-10-16 23:24] VITALS: BP 126/90
--- NOTE | 2019-10-18 07:17 | EKG ---
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
== END 2019-10-16 22:58 | disposition home or self-care (01) ==
LOC: ER 19:08
DX: K59.00 Constipation, unspecified (principal); K52.9 Noninfective gastroenteritis and colitis, unspecified; I10 Essential (primary) hypertension
CPT/HCPCS: 85025; 80048; 36415; 86900; 86850; 82550; 82565; 86901; 80076; 80307 ×8; 81003; 84484; 83690; 74177; Q9967; J2765; J2270 ×2; J7030; J2405; 93005; 96361; 96374; 96375; 99284

== ENCOUNTER 2021-02-13 06:43 | Day surgery (SDC) | payer OTHER ==
[2021-02-11 16:53] LABS: Potassium 3.2 mmol/L (3.5-5.1)
[2021-02-11 17:07] LABS: Absolute Lymphocytes (CBC) 1.8 K/uL (0.7-4.9); Basophils % 0.6 % (0-1.3); Hematocrit 41.2 % (36.0-45.0); Lymphocytes % 23.4 % (15.3-44.8); MPV 7.7 fL (7.6-11.3); RBC Red Blood Cell Count 4.86 M/uL (3.86-4.86)
[2021-02-13] MEDS ORDERED: Ringers Lactate 1,000 ML IV ONE (07:13)
[2021-02-13] MEDS ORDERED: propofoL 200 MG/20 ML VIAL IV ONE (07:32)
[2021-02-13] MEDS ORDERED: FENTANYL CITR 100 MCG/2 ML ONE (07:33)
[2021-02-13] MEDS ORDERED: MIDAZOLAM HCL 2 MG/2 ML INJ ONE (07:33)
[2021-02-13] MEDS ORDERED: LIDOCAINE 1% MPF 5 ML VIAL ONE (07:33)
[2021-02-13] MEDS ORDERED: dexAMETHasone 10 MG/ML VIAL ONE (08:13)
[2021-02-13] MEDS ORDERED: KETOROLAC 30 MG/ML INJ ONE (08:14)
[2021-02-13] MEDS ORDERED: ONDANSETRON 4 MG/2 ML VIAL ONE (08:14)
[2021-02-13] MEDS: HYDROMORPHONE HCL 1 MG/ML INJ ONE ×4 (08:55→09:18)
[2021-02-13 09:17] VITALS: O2SAT 98
[2021-02-13 10:00] VITALS: BP 141/75; TEMP 97.9
[2021-02-13] MEDS ORDERED: HYDROCODONE/APAP 10/325 TAB ONE (10:06)
--- NOTE | 2021-02-13 11:33 | OP ---
Date of Procedure: 02/13/2021 Surgeon: Fazal Zepeda MD Preoperative Diagnosis: Left carpal tunnel syndrome with left third trigger digit. Postoperative Diagnosis: Left carpal tunnel syndrome with left third trigger digit. Procedure: Left open carpal tunnel release with release of left third trigger digit. Estimated Blood Loss: Less than 3 cc. Complications: There were no complications. Pathology Specimen: No pathology specimen sent. Indications For Operation: Ms. Torres is a 40-year-old female, who came in with complaints of numbn ess and pain related to her hand. She was sent to Neurology where Neurology demonstrated carpal tunn el syndrome. She was also able to demonstrate active triggering of the third digit. Risks, benefits , and alternatives of different methods of treating this have been discussed with the patient and at this time opts for open carpal tunnel release with a third trigger digit release and all of her quest ions were answered. Description Of Procedure: The patient was taken to the operating room, placed in the supine position . General anesthesia was obtained by staff. Following this, well-padded tourniquet was placed on th e superior left arm. The left upper extremity was then prepped and draped in the usual sterile fashi on for the procedure. Following this the arm was then elevated, but not exsanguinated. Tourniquet w as raised. After this, a standard incision was made parallel to the thenar crease with slight ulnar deviation at the most distal wrist crease. This was taken down carefully through skin with only meti culous hemostasis being maintained using bipolar electrocautery. This was lead down to the palmar fa scia which was divided longitudinally. Any obstructions of the transverse carpal ligament were then removed gently to the side and a small cande was made in the transverse carpal ligament, which reveale d the underlying carpal tunnel structures. This was then released in a distal to proximal direction until there were no constricting bands. This included a significant amount of volar forearm fascia. Following this, it was then followed from proximal to distal direction until there were no constrict ing bands. After this, attention was then turned to the trigger digit. Appropriate anatomic landmar k was defined and a transverse incision was made near the metacarpal head. This was taken down throu gh skin with only meticulous hemostasis being maintained using bipolar electrocautery. This was foll owed by blunt spreading until the tendon and tendon sheath could be identified. The A1 sarah beth was id entified and then divided in its mid substance until there were no constricting bands both proximally and distally. After this, the incision for the trigger digit was closed and the tourniquet was drop ped. There was found to be no significant bleeding from the carpal tunnel incision and this was then closed using nylon sutures as well. After this, the patient has placed in a well-padded sterile maricruz ssing, awakened and taken to recovery room in good condition. No complications. /MODL Voice ID: [id number] Report ID: [id number]
== END 2021-02-13 10:30 | disposition home or self-care (01) ==
LOC: OR 06:43
PROVIDERS: ATTEND Orthopaedic Surgery
PROC: 0LN80ZZ Release Left Hand Tendon, Open Approach (ICD-10-PCS; principal; 2021-02-13 07:30)
PROC: 01N50ZZ Release Median Nerve, Open Approach (ICD-10-PCS; 2021-02-13 07:30)
DX: G56.02 Carpal tunnel syndrome, left upper limb (principal); M65.332 Trigger finger, left middle finger; Z20.822 Contact with and (suspected) exposure to COVID-19
CPT/HCPCS: 93005; 85025; 80048; 36415; 26055; 64721; U0003; J2704; J2250; J3010; J1100; J1170 ×2; J7120; J2405

== ENCOUNTER 2021-09-21 14:09 | Emergency (ER) | payer OTHER ==
--- OUTSIDE RECORDS SUMMARY | 2021-09-21 14:12 | XMS REPORT | Continuity of Care Document ---
:1980 Author Organization [facility] t Address [address] [place] [address] [address] [place] [address] Care Team Providers Name Role Phone Unavailable Unavailable Unavailable Problems This patient has no known problems. Allergies, Adverse Reactions, Alerts This patient has no known allergies or adverse reactions. Medications This patient has no known medications. Procedures This patient has no known procedures. Results Test Description Test Time Test Comments Results Result Comments Source CULTURE, URINE 2021-08-23 SPECIMEN NUMBER: 11:01:06 [id number] CULTURE, URINE SPECIMEN NUMBER: [id number] SPECIMEN COMMENT: URINE SOURCE: URINE REPORT STATUS: FINAL FINAL REPORT: 08/23/2021 10-50,000 CFU/ML UROGENITAL BEBETO PRESENT NO COMMON PATHOGENS HIV 1/2 4TH GEN, RFLX CONF 2021-08-22 04:28:00 Test Item Value Reference Range Interpretation Comme nts HIV 1/2 4TH GEN, RFLX CONF (test code = 3514) NON-REACTIVE NON-REAC TIVE HEPATITIS PANEL, [id number] 04:28:00 Test Item Value Reference Range Interpretation Comments HEPATITIS A IgM (test NON-REACTIVE NON-REACTIVE code = 42172) HEPATITIS B CORE IgM NON-REACTIVE NON-REACTIVE (test code = 4644) HEPATITIS B SURF AG NON-REACTIVE NON-REACTIVE (test code = 2739) HEPATITIS C ANTIBODY NON-REACTIVE NON-REACTIVE (test code = 4675) INTERPRETATION (NOTE) Hepatiti s A HEPATITIS A: (test serology shows no code = 2552) evidence of acu te hepatitis A. INTERPRETATION (NOTE) Hepatiti s B HEPATITIS B: (test serology shows no code = 63512) evidence of ac [place] hepatitis B and no indication of exposure to hepatitis B vir us in the previous si xto eight months. INTERPRETATION (NOTE) Hepatiti s C HEPATITIS C: (test serology shows no code = 90489) evidence of ex posure to hepatitisC v irus at this time. It can take up to 12 months after exposure tothe hepatitis C vir us for antibodies to become detectab le in the blood i n certain patient s. UNLESS OTHE RWISE INDICATED, ALL TESTING PERFORM ED [facility], [place]. 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 CLIA NUMBER [id number] CAP ACCREDITATION N O. [id number] COMPREHENSIVE METABOLIC [id number] 04:06:36 Test Item Value Reference Range Interpretation Comments GLUCOSE (test code = 92 MG/DL 70-99 2216) BUN (test code = 12 MG/DL 6-20 2207) CREATININE (test 0.66 MG/DL 0.60-1.30 code = 2214) eGFR (2020 CKD-EPI) 112 >60 (test code = 87218) ML/MIN/1.73 CALC BUN/CREAT (test 18 RATIO 6-28 code = 2235) SODIUM (test code = 139 MEQ/L 833-042 1853) POTASSIUM (test code 4.5 MEQ/L 3.5-5.4 = 2227) CHLORIDE (test code 101 MEQ/L 95-107 = 2214) CARBON DIOXIDE (test 25 MEQ/L 19-31 code = 2206) CALCIUM (test code = 9.7 MG/DL 8.5-10.5 2208) PROTEIN, TOTAL (test 7.7 G/DL 6.1-8.3 code = 2229) ALBUMIN (test code = 4.3 G/DL 3.5-5.2 2200) CALC GLOBULIN (test 3.4 G/DL 1.9-3.7 code = 2240) CALC A/G RATIO (test 1.3 RATIO 1.0-2.6 code = 2234) BILIRUBIN, TOTAL 0.3 MG/DL See_Comment [Automated message] (test code = 2207) The syste m which generated this result transmit mickey reference range : <=1.2. The refe rence range was not u sed to interpret th is result as normal/abnormal . ALKALINE PHOSPHATASE 127 U/L 40-113 H (test code = 2204) AST (test code = 19 U/L 9-40 2217) ALT (test code = 15 U/L 40 2218) LIPID [id number] 04:06:36 Test Item Value Reference Range Interpretation Comments CHOLESTEROL (test 211 MG/DL <200 H code = 2210) TRIGLYCERIDES (test 152 MG/DL <150 H code = 2232) HDL CHOLESTEROL (test 43 MG/DL >39 code = 2220) CALC LDL CHOL (test 140 MG/DL <100 H NOTE: C ALCULATED LDL code = 2237) IS BASED ON STELLA-MARLEY METHOD WHICHINCLUDES ADJUSTABLE TRIGLYCERIDE:VL DL CHOLESTEROL RAT IO.THIS FACTOR VARIES B Y MEASURED TRIGLY CERIDE AND NON-HDLCHOL ESTEROL CONCENTRATIONS WITH INCREASED CALCU LATED LDL SEENIN HIGH ER TRIGLYCERIDE OR LOWER NON-HDL SPECIME NS. FOR MOREINFORMATION , SEE CLIENT ANNOUNCE MENT AT [email or web address] RISK RATIO LDL/HDL 3.26 RATIO <3.22 H (test code = 2238)
[2021-09-21] MEDS ORDERED: LORAZEPAM 1 MG TABLET ONE (17:40)
--- NOTE | 2021-09-21 18:27 | ER ---
Nurse's Notes [facility] Name: Carolin Torres Age: 41 yrs Sex: Female : 1980 Arrival Date: 09/21/2021 Time: 14:17 Bed 9 Private MD: Diagnosis: Panic disorder [episodic paroxysmal anxiety] without agoraphobia Presentation: 09/21 15:04 Chief complaint: Patient states: reports had bad panic attack due to stress at home. ll1 Reports racing heart and SOB and difficulty swallowing. Has had panic attack in the past. Reports can usually calm her down but he is at work. Coronavirus screen: Vaccine status: Patient reports receiving the 2nd dose of the covid vaccine. Date 2021 Client denies travel out of the [place] in the last 14 days. Ebola Screen: Patient negative for fever greater than or equal to 101.5 degrees Fahrenheit, and additional compatible Ebola Virus Disease symptoms. Initial Sepsis Screen: Does the patient meet any 2 criteria?. Risk Assessment: Do you want to hurt yourself or someone else? Patient reports no desire to harm self or others. Onset of symptoms was September 16, 2021. 15:04 Method Of Arrival: EMS: [facility] 15:04 Method Of Arrival: EMS: [facility] 15:04 Acuity: NANCI 4 ll1 16:48 Note pt respirations even non labored voiced no new complaints warm blanket provided. ll1 19:04 Initial Sepsis Screen: Does the patient have a suspected source of infection? No. ll1 Patient's initial sepsis screen is negative. Triage Assessment: 15:10 General: Appears uncomfortable, Behavior is cooperative, appropriate for age. Pain: ll1 Denies pain. Neuro: Reports anxiety. 15:10 Cardiovascular: Reports chest pain, palpitations. 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 - Social history:: Smoking status: unknown. Screenin:13 Abuse screen: Denies threats or abuse. Nutritional screening: No deficits noted. ll1 Tuberculosis screening: No symptoms or risk factors identified. Fall Risk Total Rice Fall Scale indicates No Risk (0-24 pts). Assessment: 17:10 Reassessment: No changes from previously documented assessment. Patient and/or family ll1 updated on plan of care and expected duration. Pain level reassessed. Patient is alert, oriented x 3, equal unlabored respirations, skin warm/dry/pink. 18:10 Reassessment: No changes from previously documented assessment. Patient and/or family ll1 updated on plan of care and expected duration. Pain level reassessed. Patient is alert, oriented x 3, equal unlabored respirations, skin warm/dry/pink. 18:48 Reassessment: No changes from previously documented assessment. Patient and/or family ll1 updated on plan of care and expected duration. Pain level reassessed. Patient states feeling better. Vital Signs: 15:04 BP 152 / 95; Pulse 82; Resp 16; Temp 98.3(O); Pulse Ox 100% on R/A; Weight 63.5 kg (R); ll1 Height 5 ft. 1 in. (154.94 cm); Pain 0/10; 19:03 BP 160 / 90; Pulse 80; Resp 16; Pulse Ox 100% on R/A; ll1 15:04 Body Mass Index 26.45 (63.50 kg, 154.94 cm) ll1 ED Course: 14:17 Patient arrived in ED. ds1 15:09 Triage completed. ll1 17:12 [facility] 17:12 Anselmo Williamson MD is Attending Physician. [facility] 17:13 Arm band placed on Patient placed in an exam room, on a stretcher. ll1 17:13 Patient has correct armband on for positive identification. Cardiac monitoring not ll1 applicable on this patient. 17:51 Singh Gorman, JOSHUA is Primary Nurse. ll1 18:26 Tommie Clarke MD is Referral Physician. [facility] 18:48 No provider procedures requiring assistance completed. Patient did not have IV access ll1 during this emergency room visit. Administered Medications: 17:41 Drug: Ativan (LORazepam) 1 mg Route: PO; ll1 19:02 Follow up: Response: No adverse reaction; Anxiety decreased; RASS: Alert and Calm (0) ll1 Medication: 17:13 VIS not applicable for this client. ll1 Outcome: 18:26 Discharge ordered by . ml 18:48 Patient left the ED. ll1 18:48 Discharged to home ambulatory. ll1 18:48 Condition: stable 18:48 Discharge instructions given to patient, Instructed on discharge instructions, follow up and referral plans. medication usage, Demonstrated understanding of instructions, follow-up care, medications, Prescriptions given X 1. Signatures: Timothy Torres PA PA jmm Sanford, Demi ds1 Singh Gorman, RN RN ll1
--- NOTE | 2021-09-21 18:27 | EDPHYS ---
Physician Documentation [facility] Name: Carolin Torres Age: 41 yrs Sex: Female : 1980 Arrival Date: 09/21/2021 Time: 14:17 Bed 9 Private MD: ED Physician Anselmo Williamson HPI: 09/21 17:14 This 41 yrs old Unknown Female presents to ER via EMS with complaints of Anxiety. jmm 17:14 The patient presents to the emergency department with anxiety. Onset: The jmm symptoms/episode began/occurred gradually. Associated signs and symptoms: Pertinent positives; anxiety. The patient has experienced similar episodes in the past. 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 - Social history:: Smoking status: unknown. ROS: 17:14 Constitutional: Negative for fever, chills, and weight loss, Cardiovascular: Negative jmm for chest pain, palpitations, and edema, Respiratory: Negative for shortness of breath, cough, wheezing, and pleuritic chest pain. 17:14 Neuro: Positive for 17:14 Psych: Positive for anxiety. 17:14 All other systems are negative. Exam: 17:14 Head/Face: atraumatic. Eyes: EOMI, no conjunctival erythema appreciated ENT: Moist jmm Mucus Membranes Neck: Trachea midline, Supple Chest/axilla: Normal chest wall appearance and motion. Cardiovascular: Regular rate and rhythm. No edema appreciated Respiratory: Normal respirations, no respiratory distress appreciated Abdomen/GI: Non distended, soft Back: Normal ROM 17:14 Skin: General appearance color normal MS/ Extremity: Moves all extremities, no obvious deformities appreciated, no edema noted to the lower extremities Neuro: Awake and alert Psych: Behavior is normal, Mood is normal, Patient is cooperative and pleasant 17:14 Constitutional: The patient appears in no acute distress, alert, anxious. Vital Signs: 15:04 BP 152 / 95; Pulse 82; Resp 16; Temp 98.3(O); Pulse Ox 100% on R/A; Weight 63.5 kg (R); ll1 Height 5 ft. 1 in. (154.94 cm); Pain 0/10; 19:03 BP 160 / 90; Pulse 80; Resp 16; Pulse Ox 100% on R/A; ll1 15:04 Body Mass Index 26.45 (63.50 kg, 154.94 cm) ll1 MDM: 17:14 Patient medically screened. [facility] 18:08 Data reviewed: vital signs, nurses notes. Counseling: I had a detailed discussion with jose luis the patient and/or guardian regarding: the historical points, exam findings, and any diagnostic results supporting the discharge/admit diagnosis, the need for outpatient follow up, to return to the emergency department if symptoms worsen or persist or if there are any questions or concerns that arise at home. Administered Medications: 17:41 Drug: Ativan (LORazepam) 1 mg Route: PO; ll1 19:02 Follow up: Response: No adverse reaction; Anxiety decreased; RASS: Alert and Calm (0) ll1 Disposition Summary: 09/21/21 18:26 Discharge Ordered Location: Home [facility] Condition: Stable [facility] Diagnosis - Panic disorder [episodic paroxysmal anxiety] without agoraphobia [facility] Followup: [facility] - With: Tommie Clarke MD - When: 2 - 3 days - Reason: Recheck today's complaints, Continuance of care, Re-evaluation by your physician Discharge Instructions: - Discharge Summary Sheet [facility] - Panic Attack [facility] Forms: - Medication Reconciliation Form [facility] - Thank You Letter [facility] - Antibiotic Education [facility] - Prescription Opioid Use [facility] Prescriptions: - Hydroxyzine HCl 50 mg Oral Tablet - take 1 tablet by ORAL route every 8 hours As needed; 30 tablet; Refills: 0, [facility] Product Selection Permitted Signatures: Anselmo Williamson MD MD cha Mickail, Joel, PA PA jmm Lewis, Lynsay, RN RN ll1
[2021-09-21 19:02] VITALS: BP 152/95; TEMP 98.3; O2SAT 100
== END 2021-09-21 18:48 | disposition home or self-care (01) ==
LOC: ER 14:09
DX: F41.0 Panic disorder [episodic paroxysmal anxiety] (principal)
CPT/HCPCS: 99283

== ENCOUNTER 2022-05-26 20:51 | Emergency (ER) | payer OTHER ==
--- OUTSIDE RECORDS SUMMARY | 2022-05-26 20:55 | XMS REPORT | Continuity of Care Document ---
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 Medications This patient has no known medications. Procedures This patient has no known procedures. Encounters Start End Encounter Admission Attending Care Care Encounter Source Date/Time Date/Time Type Type Clinicians Facility Department ID 2021-01-07 2021-01-08 Outpatient nullFlavo DINAA [id number] [facility] 18:00:00 04:59:59 r Neurology 00 l Ho Miller 2021-01-07 2021-01-07 Outpatient SLAVA De Dios ESTEBAN [id number] 13:00:00 23:59:59 Leroy Chuck Ramires 2021-01-07 2021-01-07 Outpatient DRAGAN ARCHIBALD [id number] [facility] 13:00:00 13:00:00 00 tad Miller Results Test Description Test Time Test Comments Results Result Comments Source CULTURE, URINE 2021-08-23 SPECIMEN NUMBER: 11:01:06 [id number] CULTURE, URINE SPECIMEN NUMBER: [id number] SPECIMEN COMMENT: URINE SOURCE: URINE REPORT STATUS: FINAL FINAL REPORT: 08/23/2021 10-50,000 CFU/ML UROGENITAL BEBETO PRESENT NO COMMON PATHOGENS HIV 1/2 4TH GEN, RFLX CONF 2021-08-22 04:28:00 Test Item Value Reference Range Interpretation Comme nts HIV 1/2 4TH GEN, RFLX CONF (test code = 3514) NON-REACTIVE NON-REAC TIVE HEPATITIS PANEL, [id number] 04:28:00 Test Item Value Reference Range Interpretation Comments HEPATITIS A IgM (test NON-REACTIVE NON-REACTIVE code = 16583) HEPATITIS B CORE IgM NON-REACTIVE NON-REACTIVE (test code = 4644) HEPATITIS B SURF AG NON-REACTIVE NON-REACTIVE (test code = 2739) HEPATITIS C ANTIBODY NON-REACTIVE NON-REACTIVE (test code = 4675) INTERPRETATION (NOTE) Hepatitis A HEPATITIS A: (test serology shows no code = 2552) evidence of acu te hepatitis A. INTERPRETATION (NOTE) Hepatitis B HEPATITIS B: (test serology shows no code = 64755) evidence of ac nenana hepatitis B and no indication of exposure to hepatitis B vir us in the previous si xto eight months. INTERPRETATION (NOTE) Hepatitis C HEPATITIS C: (test serology shows no code = 11024) evidence of ex posure to hepatitisC v irus at this time. I t can take up to 12 m onths after exposure tothe hepatitis C vir us for antibodies to become detectab le in the blood in ce rtain patients. UNLES S OTHERWISE INDIC ATED, ALL TESTING PERFORMED [facility], [facility]. [address] [place] [id number] [place] [address] DIRECTOR: DMITRY JAMESON M.D. CLIA NUMBER [id number] [place] [id number] COMPREHENSIVE METABOLIC [id number] 04:06:36 Test Item Value Reference Range Interpretation Comments GLUCOSE (test code = 92 MG/DL 70-99 2216) BUN (test code = 12 MG/DL -2207) CREATININE (test 0.66 MG/DL 0.60-1.30 code = 2214) eGFR (2020 CKD-EPI) 112 >60 (test code = 89120) ML/MIN/1.73 CALC BUN/CREAT (test 18 RATIO 11-03 code = 2235) SODIUM (test code = 139 MEQ/L 189-384 6106) POTASSIUM (test code 4.5 MEQ/L 3.5-5.4 = 2228) CHLORIDE (test code 101 MEQ/L 95-107 = 2215) CARBON DIOXIDE (test 25 MEQ/L 19-31 code = 2206) CALCIUM (test code = 9.7 MG/DL 8.5-10.5 2208) PROTEIN, TOTAL (test 7.7 G/DL 6.1-8.3 code = 2229) ALBUMIN (test code = 4.3 G/DL 3.5-5.2 2200) CALC GLOBULIN (test 3.4 G/DL 1.9-3.7 code = 2240) CALC A/G RATIO (test 1.3 RATIO 1.0-2.6 code = 2234) BILIRUBIN, TOTAL 0.3 MG/DL See_Comment [Automated message] (test code = 220) The syste m which generated this result transmit mickey reference range : <=1.2. The refe rence range was not u sed to interpret th is result as normal/abnormal . ALKALINE PHOSPHATASE 127 U/L 40-113 H (test code = 220) AST (test code = 19 U/L 9-40 2217) ALT (test code = 15 U/L 5-40 2218) LIPID [id number] 04:06:36 Test Item Value Reference Range Interpretation [...] , SEE CLIENT ANNOUNCE MENT AT [email or web address] RISK RATIO LDL/HDL 3.26 RATIO <3.22 H (test code = 2238)
--- NOTE | 2022-05-26 21:58 | ER ---
Nurse's Notes [facility] Name: Carolin Torres Age: 42 yrs Sex: Female : 1980 Arrival Date: 05/26/2022 Time: 20:57 Bed Waiting Private MD: Diagnosis: Presentation: 05/26 21:56 Chief complaint: Multiple attempts to call patients name. no answer. Was told by front kd3 desk that they had left. ED Course: 20:57 Patient arrived in ED. rickey Administered Medications: No medications were administered Outcome: 21:57 Patient left the ED. kd3 Signatures: Itzel Burnett Kyli RN RN kd3
== END 2022-05-26 21:57 | disposition left against medical advice (07) ==
LOC: ER 20:51
DX: Z02.9 Encounter for administrative examinations, unspecified (principal)
CPT/HCPCS: 99281

== ENCOUNTER 2022-06-07 15:55 | Emergency (ER) | payer OTHER ==
--- OUTSIDE RECORDS SUMMARY | 2022-06-07 16:00 | XMS REPORT | Continuity of Care Document ---
:1980 Author Organization [facility] t Address [address] [place] [address] Care Team Providers Name Role Phone Leroy [...] Facility Department ID 2021-01-07 2021-01-08 Outpatient nullFlavo MNA [id number] [facility] 18:00:00 04:59:59 r Neurology 00 l Ho Miller 2021-01-07 2021-01-08 Outpatient nullFlavo MNA [id number] [facility] 18:00:00 04:59:59 r Neurology 00 l Ho Miller 2021-01-07 2021-01-07 Outpatient SLAVA De Dios [id number] 13:00:00 23:59:59 Leroy Ramires 2021-01-07 2021-01-07 Outpatient DRAGAN ARCHIBALD [id number] [facility] 13:00:00 13:00:00 00 tad Miller Results Test Description Test Time Test Comments Results Result Comments Source CULTURE, URINE 2021-08-23 SPECIMEN NUMBER: 11:01:06 [id number] CULTURE, URINE SPECIMEN NUMBER: [id number] SPECIMEN COMMENT: URINE SOURCE: URINE REPORT STATUS: FINAL FINAL REPORT: 08/23/2021 10-50,000 CFU/ML UROGENITAL BEBETO PRESENT NO COMMON PATHOGENS HIV 1/2 4TH GEN, RFLX CONF 2021-08-22 04:28:00 Test Item Value Reference Range Interpretation Comme nts HIV 1/2 4TH GEN, RFLX CONF (test code = 3514) NON-REACTIVE NON-REAC TIVE HEPATITIS PANEL, [id number] 04:28:00 Test Item Value Reference Range Interpretation Comments HEPATITIS A IgM (test NON-REACTIVE NON-REACTIVE code = 53327) HEPATITIS B CORE IgM NON-REACTIVE NON-REACTIVE (test code = 4644) HEPATITIS B SURF AG NON-REACTIVE NON-REACTIVE (test code = 2739) HEPATITIS C ANTIBODY NON-REACTIVE NON-REACTIVE (test code = 4675) INTERPRETATION (NOTE) Hepatitis A HEPATITIS A: (test serology shows no code = 2552) evidence of acu te hepatitis A. INTERPRETATION (NOTE) Hepatitis B HEPATITIS B: (test serology shows no code = 49843) evidence of ac naina hepatitis B and no indication of exposure to hepatitis B vir us in the previous si xto eight months. INTERPRETATION (NOTE) Hepatitis C HEPATITIS C: (test serology shows no code = 01755) evidence of ex posure to hepatitisC v irus at this time. I t can take up to 12 m onths after exposure tothe hepatitis C vir us for antibodies to become detectab le in the blood in ce rtain patients. UNLES S OTHERWISE INDIC ATED, ALL TESTING PERFORMED [facility], [facility]. [address] [place] [address] [facility] DIRECTOR: Serafin JAMES NUMBER [id number] [place] [id number] COMPREHENSIVE METABOLIC [id number] 04:06:36 Test Item Value Reference Range Interpretation Comments GLUCOSE (test code = 92 MG/DL 70-99 2216) BUN (test code = 12 MG/DL -2207) CREATININE (test 0.66 MG/DL 0.60-1.30 code = 2214) eGFR (2020 CKD-EPI) 112 >60 (test code = 30412) ML/MIN/1.73 CALC BUN/CREAT (test 18 RATIO 11-03 code = 2235) SODIUM (test code = 139 MEQ/L 388-074 9793) POTASSIUM (test code 4.5 MEQ/L 3.5-5.4 = 2227) CHLORIDE (test code 101 MEQ/L 95-107 = 2214) CARBON DIOXIDE (test 25 MEQ/L 19-31 code = 220) CALCIUM (test code = 9.7 MG/DL 8.5-10.5 2208) PROTEIN, TOTAL (test 7.7 G/DL 6.1-8.3 code = 222) ALBUMIN (test code = 4.3 G/DL 3.5-5.2 2200) CALC GLOBULIN (test 3.4 G/DL 1.9-3.7 code = 224) CALC A/G RATIO (test 1.3 RATIO 1.0-2.6 code = 223) BILIRUBIN, TOTAL 0.3 MG/DL See_Comment [Automated message] (test code = 2206) The syste m which generated this result transmit mickey reference range : <=1.2. The refe rence range was not u sed to interpret th is result as normal/abnormal . ALKALINE PHOSPHATASE 127 U/L 40-113 H (test code = 2203) AST (test code = 19 U/L 9-40 2217) ALT (test code = 15 U/L 5-40 2218) LIPID [id number] 04:06:36 Test Item Value Reference Range Interpretation [...] , SEE CLIENT ANNOUNCE MENT AT [email or web address] /[email or web address] RISK RATIO LDL/HDL 3.26 RATIO <3.22 H (test code = 2238)
--- NOTE | 2022-06-07 16:51 | RAD REPORT ---
EXAM DESCRIPTION: CT - Head Brain Wo Cont - 06/07/2022 4:42 pm CLINICAL HISTORY: Headache COMPARISON: 2018 TECHNIQUE: Computed axial tomography of the head was obtained. IV contrast was not requested. All CT scans are performed using dose optimization technique as appropriate and may include automated exposure control or mA/KV adjustment according to patient size. FINDINGS: An intracranial bleed is not seen . The ventricles are normal in caliber. No significant hypodense areas within the brain visualized No extra-axial fluid collection is noted. Fluid within the sinuses/ mastoids is not seen. IMPRESSION: No acute intracranial abnormality is seen. If patient's symptoms persist MRI of the bra in would be recommended.
--- NOTE | 2022-06-07 16:55 | RAD REPORT ---
EXAM DESCRIPTION: CT - Facial Bones W/ Mpr - 06/07/2022 4:42 pm CLINICAL HISTORY: Facial swelling COMPARISON: None TECHNIQUE: Computed axial tomography of the face was obtained. Coronal and sagittal reconstruction w as performed. All CT scans are performed using dose optimization technique as appropriate and may include automated exposure control or mA/KV adjustment according to patient size. FINDINGS: A fracture is not seen. A TMJ dislocation is not noted. Right preseptal and supraorbital swelling. No abscess seen. The globes are intact. Intraorbital fat is clear IMPRESSION: Right preseptal and supraorbital swelling. If the patient has not experienced trauma thi s may indicate cellulitis.
[2022-06-07 17:47] LABS: Absolute Lymphocytes (CBC) 2.6 K/uL (0.7-4.9); Hematocrit 43.4 % (36.0-45.0); Lymphocytes % 30.7 % (15.3-44.8); MPV 7.3 fL (7.6-11.3); RBC Red Blood Cell Count 4.87 M/uL (3.86-4.86)
[2022-06-07 17:58] LABS: Potassium 3.5 mmol/L (3.5-5.1)
[2022-06-07] MEDS ORDERED: METHYLPREDNISOLONE 125 MG INJ ONE (17:58)
[2022-06-07] MEDS ORDERED: DIPHENHYDRAMINE 50 MG/ML VIAL ONE (17:59)
[2022-06-07] MEDS ORDERED: FAMOTIDINE 20 MG/2 ML VIAL IV ONE (17:59)
[2022-06-07] MEDS ORDERED: ACETAMINOPHEN 325 MG TABLET ONE (17:59)
--- NOTE | 2022-06-07 18:41 | EDPHYS ---
Physician Documentation [facility] Name: Carolin Torres Age: 42 yrs Sex: Female : 1980 Arrival Date: 06/07/2022 Time: 15:57 Bed 8 Private MD: ED Physician Savage Rao HPI: 06/07 16:25 This 42 yrs old Female presents to ER via Ambulatory with complaints of Facial cp Swelling, Headache. 16:25 The patient's rash thought to be caused by an unknown cause. The rash is located on the cp face. 16:25 The rash can be described as swelling, itching, mild erythema. cp 16:25 Onset: The symptoms/episode began/occurred upon awakening this morning. Associated cp signs and symptoms: Pertinent positives: itching, tingling to left ear and lips, Pertinent negatives: burning sensation, difficulty breathing, fever, swelling of lips, swelling of throat, swelling of tongue. Severity of symptoms: in the emergency department the symptoms are unchanged. 16:28 Patient reports restarting Lisinopril blood pressure medication about 1 week ago. cp PROJECT ARCHITECT: 16:25 LMP N/A - Hysterectomy jh5 Historical: - Allergies: 18:14 No Known Allergies; jl7 - PMHx: 16:25 Hypertension; jh5 - PSHx: 16:25 Total abdominal hysterectomy; 5 - Immunization history:: Adult Immunizations up to date. - Social history:: Smoking status: Patient denies any tobacco usage or history of. ROS: 16:30 Constitutional: Negative for body aches, chills, fever, poor PO intake. cp 16:30 Skin: Positive for rash, swelling, of the face. cp 16:30 ENT: Negative for drainage from ear(s), ear pain, difficulty swallowing, difficulty cp handling secretions. 16:30 Respiratory: Negative for cough, shortness of breath, wheezing. 16:30 Eyes: Negative for discharge, pain, redness, visual disturbance. cp 16:30 Cardiovascular: Negative for chest pain, palpitations. 16:30 Neuro: Positive for headache, tingling, Negative for altered mental status, weakness. 16:30 All other systems are negative. cp Exam: 16:35 Constitutional: The patient appears in no acute distress, alert, awake, cp non-diaphoretic, non-toxic, well developed, well nourished, uncomfortable. 16:35 Head/face: Noted is erythema, that is mild, swelling, that is mild, of the right cp forehead extending to right upper and lower eyelid. 16:35 Eyes: Periorbital structures: swelling, on the right eye, very mild, Pupils: equal, round, and reactive to light and accomodation, Extraocular movements: intact throughout, Conjunctiva: normal, no exudate, no injection, Sclera: no appreciated abnormality. 16:35 ENT: External ear(s): erythema, that is minimal, of the right ear, swelling, that is minimal, of the right ear, Ear canal(s): are normal, clear, TM's: dullness, bilaterally, Nose: External nose: minimal swelling and erythema, Mouth: Lips: moist, Oral mucosa: moist, Posterior pharynx: is normal, airway is patent, no erythema, no exudate. 16:35 Neck: ROM/movement: is normal, is supple, without pain, no range of motions limitations. 16:35 Chest/axilla: Inspection: normal. 16:35 Cardiovascular: Rate: normal, Rhythm: regular. 16:35 Respiratory: the patient does not display signs of respiratory distress, Respirations: normal, no use of accessory muscles, no retractions, labored breathing, is not present, Breath sounds: are clear throughout, no decreased breath sounds, no stridor, no wheezing. 16:35 Abdomen/GI: Exam negative for discomfort, distension, guarding, Inspection: abdomen appears normal. 16:35 Neuro: Orientation: to person, place \T\ time. Mentation: is normal, Motor: moves all fours, strength is normal. 18:11 ECG was reviewed by the Attending Physician. cp Vital Signs: 16:25 BP 136 / 99; Pulse 86; Resp 18; Temp 98.7; Pulse Ox 100% ; Weight 56.25 kg; Height 5 jh5 ft. 1 in. (154.94 cm); Pain 6/10; 18:12 BP 147 / 90; Pulse 77; Resp 15; Pulse Ox 99% ; jl7 18:51 BP 138 / 99; Pulse 74; Resp 16; Pulse Ox 100% ; kr3 16:25 Body Mass Index 23.43 (56.25 kg, 154.94 cm) jh5 MDM: 16:23 Patient medically screened. cp 17:00 Differential diagnosis: cellulitis, allergic reaction, abscess, sepsis. cp 18:40 Data reviewed: vital signs, nurses notes, lab test result(s), radiologic studies, CT cp scan. 18:40 Consideration of Admission/Observation Escalation of care including cp admission/observation considered. I considered the following discharge prescriptions or medication management in the emergency department Medications were administered in the Emergency Department. See MAR. Care significantly affected by the following chronic conditions: Hypertension. Response to treatment: the patient's symptoms have mildly improved after treatment, and as a result, I will discharge patient. 18:40 ED course: VSS. Patient appears non-toxic and no signs of respiratory distress. Likely cp cause of swelling is allergic due to Lisinopril medication. Patient instructed to stop lisinopril and will discharge to home for continued monitoring. 06/07 16:19 Order name: Basic Metabolic Panel; Complete Time: 17:59 06/07 17:59 Interpretation: Normal except: GLUC 111; CRE 1.11; GFR 63. 06/07 16:19 Order name: CBC with Diff; Complete Time: 17:59 06/07 17:59 Interpretation: Normal except: RBC 4.87; MPV 7.3; EOSINOPHIL % 7.4; EOSA 0.6. 06/07 16:19 Order name: CT Head Brain wo Cont; Complete Time: 17:35 06/07 17:36 Interpretation: Report reviewed. 06/07 16:20 Order name: CT Facial Bones W/O Con; Complete Time: 17:35 06/07 17:37 Interpretation: Report reviewed. 06/07 16:19 Order name: EKG; Complete Time: 16:19 06/07 16:19 Order name: Cardiac monitoring; Complete Time: 18:11 06/07 16:19 Order name: EKG - Nurse/Tech; Complete Time: 18:11 06/07 16:19 Order name: IV Saline Lock; Complete Time: 17:41 06/07 16:19 Order name: Labs collected and sent; Complete Time: 17:41 06/07 16:19 Order name: O2 Per Protocol; Complete Time: 17:43 06/07 16:19 Order name: O2 Sat Monitoring; Complete Time: 17:43 cp EC:11 Rate is 62 beats/min. Rhythm is regular. DE interval is normal. QRS interval is normal. cp QT interval is normal. T waves are Inverted in lead aVR. Interpreted by me. Reviewed by me. Administered Medications: 18:00 Drug: Tylenol 650 mg Route: PO; jl7 19:15 Follow up: Response: No adverse reaction kr3 18:02 Drug: Benadryl (diphenhydrAMINE) 50 mg Route: IVP; Site: right antecubital; jl7 19:15 Follow up: Response: No adverse reaction kr3 18:03 Drug: Pepcid (famotidine) 20 mg Route: IVP; Site: right antecubital; jl7 18:51 Follow up: Response: No adverse reaction kr3 18:08 Drug: SOLU-Medrol (methylPrednisoLONE) 125 mg Route: IVP; Site: right antecubital; jl7 19:15 Follow up: Response: No adverse reaction kr3 Disposition: 06/08 07:10 Co-signature as Attending Physician, Savage Rao MD I reviewed the patient's care rn provided by the Advanced Practice Provider and agree with the diagnosis and treatment plan. Disposition Summary: 06/07/22 18:41 Discharge Ordered Location: Home cp Problem: new cp Symptoms: have improved cp Condition: Stable cp Diagnosis - Allergy status to unspecified drugs, medicaments and biological substances status cp Followup: cp - With: Private Physician - When: 2 - 3 days - Reason: Recheck today's complaints, return to ED worsening swelling, difficulty breathing Discharge Instructions: - Discharge Summary Sheet cp - Drug Allergy cp Forms: - Medication Reconciliation Form cp - Thank You Letter cp - Antibiotic Education cp - Prescription Opioid Use cp Prescriptions: - Pepcid 20 mg Oral Tablet - take 1 tablet by ORAL route every 12 hours for 10 days; 20 tablet; Refills: 0, cp Product Selection Permitted - Prednisone 20 mg Oral Tablet - take 2 tablets by ORAL route once daily for 5 days then take 1 tablet daily for cp 3 days, then 1/2 tablet daily for 2 days; 14 tablet; Refills: 0, Product Selection Permitted Signatures: Dispatcher [employer] EDSavage Leiva MD MD rn Page, Corey, PA PA cp Jeremías Cota RN RN jl7 Itzel Cordova RN RN jh5 Valery Cowan RN kr3
--- NOTE | 2022-06-07 18:41 | ER ---
Nurse's Notes [facility] Name: Carolin Torres Age: 42 yrs Sex: Female : 1980 Arrival Date: 06/07/2022 Time: 15:57 Bed 8 Private MD: Diagnosis: Allergy status to unspecified drugs, medicaments and biological substances status Presentation: 06/07 16:23 Chief complaint: Patient states: I woke up with this swelling to my right forehead and jh5 its causing tingling down into my ear and a little to my lips. Coronavirus screen: Vaccine status: Patient reports receiving the 2nd dose of the covid vaccine. Client denies travel out of the [place] in the last 14 days. Ebola Screen: Patient negative for fever greater than or equal to 101.5 degrees Fahrenheit, and additional compatible Ebola Virus Disease symptoms Patient denies exposure to infectious person. Patient denies travel to an Ebola-affected area in the 21 days before illness onset. 16:23 Method Of Arrival: Ambulatory [facility] 16:25 Initial Sepsis Screen: Does the patient meet any 2 criteria? No. Patient's initial [facility] sepsis screen is negative. Does the patient have a suspected source of infection? No. Patient's initial sepsis screen is negative. Risk Assessment: Do you want to hurt yourself or someone else? Patient reports no desire to harm self or others. 16:25 Acuity: NANCI 3 5 Triage Assessment: 16:25 Headache History: The patient has had previous headaches and this one is similar to [facility] previous episodes. General: Appears uncomfortable, slender, Behavior is calm, cooperative, appropriate for age. Neuro: No deficits noted. 18:52 Pain: Also complains of. kr3 18:53 Pain: Pain. kr3 TRANSPORTATION ESCORT: 16:25 LMP N/A - Hysterectomy 5 Historical: - Allergies: 18:14 No Known Allergies; jl7 - PMHx: 16:25 Hypertension; jh5 - PSHx: 16:25 Total abdominal hysterectomy; 5 - Immunization history:: Adult Immunizations up to date. - Social history:: Smoking status: Patient denies any tobacco usage or history of. Screenin:[address] [facility] ED Fall Risk Assessment (Adult) History of falling in the last 3 months, kr3 including since admission No falls in past 3 months (0 pts) Confusion or Disorientation No (0 pts) Intoxicated or Sedated No (0 pts) Impaired Gait No (0 pts) Mobility Assist Device Used No (0 pt) Altered Elimination No (0 pt) Score/Fall Risk Level 0 - 2 = Low Risk. Abuse screen: Denies threats or abuse. Nutritional screening: No deficits noted. Tuberculosis screening: No symptoms or risk factors identified. Assessment: 18:52 Reassessment: Patient appears in no apparent distress at this time. Patient and/or kr3 family updated on plan of care and expected duration. Pain level reassessed. Patient is alert, oriented x 3, equal unlabored respirations, skin warm/dry/pink. Vital Signs: 16:25 BP 136 / 99; Pulse 86; Resp 18; Temp 98.7; Pulse Ox 100% ; Weight 56.25 kg; Height 5 5 ft. 1 in. (154.94 cm); Pain 6/10; 18:12 BP 147 / 90; Pulse 77; Resp 15; Pulse Ox 99% ; jl7 18:51 BP 138 / 99; Pulse 74; Resp 16; Pulse Ox 100% ; kr3 16:25 Body Mass Index 23.43 (56.25 kg, 154.94 cm) 5 ED Course: 15:57 Patient arrived in ED. as 16:01 Anselmo Cornejo PA is PHCP. cp 16:01 Savage Rao MD is Attending Physician. cp 16:25 Triage completed. [facility] 16:25 Arm band placed on right wrist. [facility] 16:30 Bed in low position. Call light in reach. Side rails up X 1. kr3 16:44 CT Head Brain wo Cont In Process Unspecified. EDMS 16:44 CT Facial Bones W/O Con In Process Unspecified. EDMS 17:41 Basic Metabolic Panel Sent. em1 17:41 CBC with Diff Sent. em1 17:41 Initial lab(s) drawn, by me, sent to lab. Inserted saline lock: 20 gauge in right em1 antecubital area, using aseptic technique. Blood collected. 17:42 Xander Bocanegra, RN is Primary Nurse. bp 18:52 No provider procedures requiring assistance completed. IV discontinued, intact, kr3 bleeding controlled, No redness/swelling at site. Pressure dressing applied. Administered Medications: 18:00 Drug: Tylenol 650 mg Route: PO; jl7 19:15 Follow up: Response: No adverse reaction kr3 18:02 Drug: Benadryl (diphenhydrAMINE) 50 mg Route: IVP; Site: right antecubital; jl7 19:15 Follow up: Response: No adverse reaction kr3 18:03 Drug: Pepcid (famotidine) 20 mg Route: IVP; Site: right antecubital; jl7 18:51 Follow up: Response: No adverse reaction kr3 18:08 Drug: SOLU-Medrol (methylPrednisoLONE) 125 mg Route: IVP; Site: right antecubital; jl7 19:15 Follow up: Response: No adverse reaction kr3 Medication: 18:54 VIS not applicable for this client. kr3 Outcome: 18:41 Discharge ordered by MD. cp 18:53 Discharged to home ambulatory. kr3 18:53 Condition: stable 18:53 Discharge instructions given to patient, Instructed on discharge instructions, follow up and referral plans. medication usage, Demonstrated understanding of instructions, follow-up care, medications, Prescriptions given X 2. 19:02 Patient left the ED. kr3 Signatures: Dispatcher [employer] EDMS [facility] em1 Anselmo Cornejo PA PA cp Leal, Jahala RN RN jl7 Xander Bocanegra RN RN Itzel Lopez RN RN jh5 Valery Cowan RN RN kr3
[2022-06-07 20:28] VITALS: TEMP 98.7
[2022-06-07 20:31] VITALS: BP 138/99; O2SAT 100
--- NOTE | 2022-06-08 16:56 | EKG ---
Test Date: 2022-06-07 Test Time: 18:05:53 [facility] Manager: ZOLTAN MEASUREMENT RESULTS: Intervals: Rate: 62 WI: 150 QRSD: 94 QT: 418 QTc: 424 [place]: P: 51 WI: 150 QRS: 78 T: 52 INTERPRETIVE STATEMENTS: Normal sinus rhythm Normal ECG Compared to ECG 02/11/2021 15:00:58 Atrial abnormality no longer present Electronically Signed On 06-08-22 16:53:46 PRODUCTION ROUSTABOUT by Chapin Edmonds
== END 2022-06-07 19:02 | disposition home or self-care (01) ==
LOC: ER 15:55
DX: R21 Rash and other nonspecific skin eruption (principal); R51.9 Headache, unspecified; Z91.09 Other allergy status, other than to drugs and biological substances; I10 Essential (primary) hypertension
CPT/HCPCS: 85025; 80048; 36415; 70450; 70486; 76377; J1200; J2930; 93005; 96374; 96375; 99284

== ENCOUNTER 2022-12-29 21:37 | Emergency (ER) | payer OTHER, SELFPAY ==
--- OUTSIDE RECORDS SUMMARY | 2022-12-29 21:39 | XMS REPORT | Continuity of Care Document ---
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 Medications This patient has no known medications. Procedures This patient has no known procedures. Encounters Start End Encounter Admission Attending Care Care Encounter Source Date/Time Date/Time Type Type Clinicians Facility Department ID 2022-12-24 2022-12-24 Outpatient SHREYA CASH [id number] 023 Gautam 08:42:40 08:42:40 [id number] F Georgi 2022-12-08 2022-12-08 Outpatient GC_GCBZW_Ka PRIV PRIV [id number] [facility] 00:00:00 00:00:00 diyala_S [id number] Medic al 2022-11-25 2022-11-25 Outpatient GC_GCBZW_Ka PRIV PRIV [id number] [facility] 00:00:00 00:00:00 diyala_S [id number] Medic al 2022-11-25 2022-11-25 Outpatient GC_GCBZW_Ka PRIV PRIV [id number] [facility] 00:00:00 00:00:00 diyala_S [id number] Medic al 2022-08-13 2022-08-13 Outpatient SFA SFA [id number] Gautam 15:56:30 15:56:30 [id number] F Georgi 2021-01-07 2021-01-08 Outpatient nullFlavo MNA [id number] [facility] 18:00:00 04:59:59 r Neurology 00 l Taney Paul Results Test Description Test Time Test Comments Results Result Comments Source HIV 1/2 4TH GEN, RFLX CONF 2022-08-17 03:40:15 Test Item Value Reference Range Interpretation Comme nts HIV 1/2 4TH GEN, RFLX CONF (test code = 3514) NON-REACTIVE NON-REAC TIVE HEPATITIS PANEL, [id number] 03:40:15 Test Item Value Reference Range Interpretation Comments HEPATITIS A IgM (test NON-REACTIVE NON-REACTIVE code = 60003) HEPATITIS B CORE IgM NON-REACTIVE NON-REACTIVE (test code = 4644) HEPATITIS B SURF AG NON-REACTIVE NON-REACTIVE (test code = 2739) HEPATITIS C ANTIBODY NON-REACTIVE NON-REACTIVE (test code = 4675) INTERPRETATION (NOTE) Hepatitis A HEPATITIS A: (test code sero logy shows no = 2552) evidence of acu te hepatitis A. INTERPRETATION (NOTE) Hepatitis B HEPATITIS B: (test code sero logy shows no = 06494) evidence of acu te hepatitis B and no indication of exposure to hepatitis B vir us in the previous nisha eight months. INTERPRETATION (NOTE) Hepatitis C HEPATITIS C: (test code sero logy shows no = 98953) evidence of exposure to hepatitisC viru s at this time. I t can take up to 12 months after exposure tothe hepatitis C vir us for antibodies to become detectab le in the blood in certain patient s. [id number] 02:25:27 Test Item Value Reference Range Interpretation Comments RPR RESULT (test code = NON-REACTIVE NON-REACTIVE 3501) RPR TITER (test code = 3500) NOT INDIC. TITER NOT INDIC. CT/NG, NAAT, [id number] 14:50:02 Test Item Value Reference Range Interpretation Comments CHLAMYDIA, NAAT, NEGATIVE NEGATIVE Testing is performed with URINE (test code Adam ARMANI 6800/8800 = 72701) systems usingre al-time polymerase joceline n reaction (PCR) method. A negative result does not exclude low level infection , specimensamplin g error, or collection erro r. GONORRHEA, NAAT, NEGATIVE NEGATIVE Testing is performed with URINE (test code Adam ARMANI 6800/8800 = 53459) systems usingre al-time polymerase joceline n reaction (PCR) method. A negative result does not exclude low level infection , specimensamplin g error, or collection erro r. [facility] has important p athology staff changes e ffective 07/07/2022. New pathology staff will provide uninterrupted, excellent patient care an d clinical consultation. S ee URL: [email or web address]. UNLESS OTHE RWISE INDICATED, ALL TESTING PERFORMED [facility] [employer] [address] [place] [address] LABORATOR Y DIRECTOR: EMMANUELLE YODER M.D. [facility] NUMBER [id number] CAP ACCREDITATION N O. [id number] CULTURE, [id number] 11:01:06SPECIMEN NUMBER: [id number] CULTURE, URINE SPECIMEN NUMBER: [id number] SPECIMEN COMMENT: URINE SOURCE:URINE REPORT STATUS: FINAL FINAL REPORT: 08/23/2021 10-50,000 CFU/ML UROGENITAL BEBETO PRESENT NO COM MON PATHOGENSHIV 1/2 4TH GEN, RFLX [id number] 04:28:00 Test Item Value Reference Range Interpretation Comments HIV 1/2 4TH GEN, RFLX CONF (test NON-REACTIVE NON-REACTIVE code = 3514) HEPATITIS PANEL, [id number] 04:28:00 Test Item Value Reference Range Interpretation Comments HEPATITIS A IgM (test NON-REACTIVE NON-REACTIVE code = 64868) HEPATITIS B CORE IgM NON-REACTIVE NON-REACTIVE (test code = 4644) HEPATITIS B SURF AG NON-REACTIVE NON-REACTIVE (test code = 2739) HEPATITIS C ANTIBODY NON-REACTIVE NON-REACTIVE (test code = 4675) INTERPRETATION (NOTE) Hepatitis A HEPATITIS A: (test serology shows no code = 2552) evidence of acu te hepatitis A. INTERPRETATION (NOTE) Hepatitis B HEPATITIS B: (test serology shows no code = 09435) evidence of ac eek hepatitis B and no indication of exposure to hepatitis B vir us in the previous si xto eight months. INTERPRETATION (NOTE) Hepatitis C HEPATITIS C: (test serology shows no code = 56256) evidence of ex posure to hepatitisC v irus at this time. I t can take up to 12 m onths after exposure tothe hepatitis C vir us for antibodies to become detectab le in the blood in certain patient s. UNLESS OTHERWIS E INDICATED, ALL TESTING PERFORM [facility] [place]. [address] [place] [address] [facility] DIRECTOR: DMITRY JAMESON M.D. CLIA NUMBER [id number] [facility] [place] [place] [id number] COMPREHENSIVE METABOLIC [id number] 04:06:36 Test Item Value Reference Range Interpretation Comments GLUCOSE (test code = 92 MG/DL 70-99 2216) BUN (test code = 12 MG/DL 6-20 2207) CREATININE (test 0.66 MG/DL 0.60-1.30 code = 2214) eGFR (2020 CKD-EPI) 112 >60 (test code = 31518) ML/MIN/1.73 CALC BUN/CREAT (test 18 RATIO 6-28 code = 2235) SODIUM (test code = 139 MEQ/L 504-087 8672) POTASSIUM (test code 4.5 MEQ/L 3.5-5.4 = [...] code = 15 U/L 5-40 2218) LIPID [id number] 04:06:36 Test Item Value Reference Range Interpretation [...] , SEE CLIENT ANNOUNCE MENT AT [email or web address] RATIO LDL/HDL 3.26 RATIO <3.22 H (test code = 2238)
[2022-12-29] MEDS ORDERED: ONDANSETRON 4 MG/2 ML VIAL ONE (22:29)
[2022-12-29 22:47] LABS: Absolute Lymphocytes (CBC) 2.2 K/uL (0.7-4.9); Hematocrit 41.4 % (36.0-45.0); Lymphocytes % 13.4 % (15.3-44.8); MCV 85.4 fL (80-100); MPV 7.6 fL (7.6-11.3); Platelets 354 thou/uL (152-406); RBC Red Blood Cell Count 4.85 M/uL (3.86-4.86)
--- NOTE | 2022-12-29 22:50 | RAD REPORT ---
EXAM DESCRIPTION: CT - Stone Protocol - 12/29/2022 10:34 pm CLINICAL HISTORY: Flank pain. FLANK PAIN COMPARISON: Abdomen Pelvis W Contrast dated 10/16/2019 TECHNIQUE: Axial images were obtained without oral or IV contrast. Lack of contrast limits solid org an and vascular assessment. The hyfot-az-kaue spans the entirety of the system partially obscuring uppermost abdomen and lung bases. Coronal reformatted images were obtained and reviewed. All CT scans are performed using dose optimization technique as appropriate and may include automated exposure control or mA/KV adjustment according to patient size. FINDINGS: The lower lung vidal are clear. Imaged portions of the liver and spleen show no suspicious findings on non-contrast imaging. The panc reas and adrenal glands are normal. No pathologic lymphadenopathy in the abdomen or pelvis. Multiple stones are present in the calices of both kidneys. No ureter stone is visualized. No bowel obstruction, free air, free fluid or abscess. Normal appendix noted. No significant bony abnormality. IMPRESSION: Extensive bilateral caliceal calculi noted without hydronephrosis. No ureter or bladder stones visualized.
[2022-12-29 22:59] LABS: Albumin 3.6 g/dL (3.4-5.0); Bilirubin Total 0.4 mg/dL (0.2-1.0); Potassium 3.8 mEq/L (3.5-5.1); Protein, Total 7.9 g/dL (6.4-8.2)
[2022-12-29 23:01] LABS: Specific Gravity 1.008 (1.005-1.030); Urine Bacteria None Seen /HPF (<20); Urine Bilirubin NEGATIVE (Negative); Urine Blood 1+ (Negative); Urine Clarity Extremely Turbid (Clear); Urine Color Colorless (Yellow); Urine Glucose NEGATIVE (Negative); Urine Mucus Slight /HPF (None Seen); Urine Protein TRACE (Negative); Urine RBC 21-50 /HPF (None Seen); Urine Urobilinogen Normal (Normal); Urine WBC Clump Rare /HPF (None Seen); Urine pH 5.5 (5.0-7.0)
[2022-12-29 23:06] LABS: Specific Gravity 1.008 (1.005-1.030)
--- NOTE | 2022-12-29 23:39 | EDPHYS ---
Physician Documentation [facility] Name: Carolin Torres Age: 42 yrs Sex: Female : 1980 Arrival Date: 12/29/2022 Time: 21:37 Bed IW1 Private MD: ED Physician Savage Rao HPI: 12/30 00:04 This 42 yrs old Female presents to ER via Ambulatory with complaints of Back Pain. kb 00:04 The patient presents with pain that is acute. The symptoms are located in the right low kb back. The patient has not recently seen a physician. 00:04 Onset: The symptoms/episode began/occurred today. The pain does not radiate. Associated kb signs and symptoms: Pertinent positives: dysuria, Pertinent negatives: fever. The problem was sustained from unknown cause. Modifying factors: The patient symptoms are alleviated by nothing, the patient symptoms are aggravated by any movement. Severity of symptoms: At their worst the symptoms were moderate, in the emergency department the symptoms are unchanged. The patient has not experienced similar symptoms in the past. 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 Flu vaccine is not up to date. - Social history:: Smoking status: Patient denies any tobacco usage or history of. Patient/guardian denies using alcohol, street drugs. ROS: 12/30 00:02 Constitutional: Negative for fever, chills, and weight loss. kb Back: Positive for pain at rest, of the left low back. : Positive for burning with urination. All other systems are negative. Exam: 00:02 Constitutional: This is a well developed, well nourished patient who is awake, alert, kb and in no acute distress. Head/Face: Normocephalic, atraumatic. ENT: Moist Mucous membranes Cardiovascular: Regular rate and rhythm with a normal S1 and S2. No gallops, murmurs, or rubs. No pulse deficits. Respiratory: Respirations even and unlabored. No increased work of breathing. Talking in full sentences Abdomen/GI: Soft, non-tender. No distention Skin: Warm, dry with normal turgor. Normal color. MS/ Extremity: Pulses equal, no cyanosis. Neurovascular intact. Full, normal range of motion. Neuro: Awake and alert, GCS 15, oriented to person, place, time, and situation. Moves all extremities. Normal gait. 00:02 Back: pain, that is moderate, of the left low back, ROM is normal, CVA tenderness, is absent. 00:05 Neuro: Exam negative for acute changes. kb Vital Signs: 12/29 22:20 BP 166 / 89; Pulse 103; Resp 17 S; Temp 100(O); Pulse Ox 99% on R/A; Weight 68.04 kg lg3 (R); Height 5 ft. 1 in. (R); Pain 8/10; 23:51 BP 158 / 81; Pulse 92; Resp 18 S; Pulse Ox 97% on R/A; as6 22:20 Body Mass Index 28.34 (68.04 kg, 154.94 cm) lg3 22:20 Pain Scale: Adult lg3 MDM: 21:57 Patient medically screened. kb 23:38 Data reviewed: vital signs, nurses notes. kb 12/30 00:02 Differential diagnosis: Pyelonephritis uti, kidney stone, sciatica. Counseling: I had a kb detailed discussion with the patient and/or guardian regarding the historical points, exam findings, and any diagnostic results supporting the discharge/admit diagnosis, lab results, radiology results, the need for outpatient follow up, a family practitioner, to return to the emergency department if symptoms worsen or persist or if there are any questions or concerns that arise at home. ED course: Pt reports she is ready to go home and does not want fluids. Nontoxic in appearance, no abd tenderness, no cva tenderness. . 12/29 22:03 Order name: Test, Urine; Complete Time: 23:08 kb 12/29 22:03 Order name: Urinalysis w/ reflexes; Complete Time: 23:04 kb 12/29 22:03 Order name: CBC with Diff; Complete Time: 23:04 kb 12/29 22:03 Order name: CMP; Complete Time: 23:04 kb 12/29 23:06 Order name: Urine Culture EDMS 12/29 22:03 Order name: CT Stone Protocol; Complete Time: 22:51 kb 12/29 22:03 Order name: IV Saline Lock; Complete Time: : kb 12/29 22:03 Order name: Labs collected and sent; Complete Time: : kb Administered Medications: 12/29 22:23 Drug: Ondansetron IVP 4 mg Route: IVP; Site: right antecubital; as6 23:51 Follow up: Response: No adverse reaction as6 23:49 Drug: Rocephin IV 1 grams Route: IV; Rate: calculated rate; Site: right antecubital; as6 23:51 Follow up: Response: No adverse reaction; IV Status: Completed infusion; IV Intake: [id number] 23:50 Drug: Acetaminophen PO 1000 mg Route: PO; as6 23:51 Follow up: Response: No adverse reaction as6 23:50 Not Given (Patient Refused): NS 0.9% IV 1000 ml IV at 1000 ml once as6 Disposition: 12/30 01:12 Co-signature as Attending Physician, Savage Rao MD I reviewed the patient's care rn provided by the Advanced Practice Provider and agree with the diagnosis and treatment plan. Disposition Summary: 12/29/22 23:39 Discharge Ordered Location: Home kb Condition: Stable kb Diagnosis - UTI/ Urinary tract infection, site not specified kb Followup: kb - With: Emergency Department - When: - Reason: Worsening of condition Followup: kb - With: Private Physician - When: 2 - 3 days - Reason: Recheck today's complaints, Continuance of care, Re-evaluation by your physician Discharge Instructions: - Discharge Summary Sheet kb - Urinary Tract Infection, Adult, [id number] kb Forms: - Medication Reconciliation Form kb - Thank You Letter kb - Antibiotic Education kb - Prescription Opioid Use kb - Patient Portal Instructions kb - Leadership Thank You Letter kb Prescriptions: - cefpodoxime 100 mg Oral Tablet - take 1 tablet by ORAL route every 12 hours for 10 days take with food; 20 kb tablet; Refills: 0, Product Selection Permitted Signatures: Dispatcher [employer] [facility] Fany Milton FNP-C FNP-Ckb Nieto, Roman, MD MD rn Gibson, Lacie, RN RN lg3 Mark Wells RN RN as6
--- NOTE | 2022-12-29 23:39 | ER ---
Nurse's Notes [facility] Name: Carolin Torres Age: 42 yrs Sex: Female : 1980 Arrival Date: 12/29/2022 Time: 21:37 Bed IW1 Private MD: Diagnosis: UTI/ Urinary tract infection, site not specified Presentation: 12/29 22:20 Chief complaint: Patient states: nausea X1 week. new onset left lower flank pain with lg3 abdominal tenderness. reports pain and burning with urination. Coronavirus screen: Client denies travel out of the [place] in the last 14 days. At this time, the client does not indicate any symptoms associated with coronavirus-19. Ebola Screen: No symptoms or risks identified at this time. Initial Sepsis Screen: Does the patient meet any 2 criteria? No. Patient's initial sepsis screen is negative. Does the patient have a suspected source of infection? No. Patient's initial sepsis screen is negative. Risk Assessment: Do you want to hurt yourself or someone else? Patient reports no desire to harm self or others. Onset of symptoms was December 29, 2022. 22:20 Method Of Arrival: Ambulatory lg3 22:20 Acuity: NANCI 3 lg3 Triage Assessment: 22:21 General: Appears in no apparent distress. uncomfortable, Behavior is calm, cooperative. lg3 Pain: Complains of pain in left flank Pain radiates to right lower quadrant. EENT: No deficits noted. No signs and/or symptoms were reported regarding the EENT system. Neuro: No deficits noted. Borges Agitation-Sedation Scale (RASS): 0 - Alert and Calm Level of Consciousness is awake, alert, obeys commands, Oriented to person, place, time, situation. Cardiovascular: No deficits noted. Denies chest pain, shortness of breath, Capillary refill < 3 seconds Clubbing of nail beds is absent JVD is absent Patient's skin is warm and dry. Respiratory: No deficits noted. Airway is patent Respiratory effort is even, unlabored, Respiratory pattern is regular, symmetrical. GI: Abdomen is round non-distended, Reports lower abdominal pain, cramping, nausea. : Reports burning with urination, pain. Derm: No deficits noted. No signs and/or symptoms reported regarding the dermatologic system. Skin is intact, is healthy with good turgor, Skin is dry, Skin is normal. Musculoskeletal: No deficits noted. No signs and/or symptoms reported regarding the musculoskeletal system. Circulation, motion, and sensation intact. Range of motion: intact in all extremities. 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 Flu vaccine is not up to date. - Social history:: Smoking status: Patient denies any tobacco usage or history of. Patient/guardian denies using alcohol, street drugs. Screenin:[facility] ED Fall Risk Assessment (Adult) Score/Fall Risk Level 0 - 2 = Low Risk. Abuse as6 screen: Denies threats or abuse. Denies injuries from another. Nutritional screening: No deficits noted. Tuberculosis screening: No symptoms or risk factors identified. Vital Signs: 22:20 BP 166 / 89; Pulse 103; Resp 17 S; Temp 100(O); Pulse Ox 99% on R/A; Weight 68.04 kg lg3 (R); Height 5 ft. 1 in. (R); Pain 8/10; 23:51 BP 158 / 81; Pulse 92; Resp 18 S; Pulse Ox 97% on R/A; as6 22:20 Body Mass Index 28.34 (68.04 kg, 154.94 cm) lg3 22:20 Pain Scale: Adult lg3 ED Course: 21:56 Patient arrived in ED. ag3 21:57 Fany Milton FNP-C [facility]. kb 21:57 Savage Rao MD is Attending Physician. kb 22:17 Radiology exam delayed due to test not completed at this time. iv 22:21 Triage completed. lg3 22:21 Arm band placed on right wrist. lg3 22:24 Inserted saline lock: 20 gauge in right antecubital area, using aseptic technique. as6 Blood collected. 22:24 Urinalysis w/ reflexes Sent. as6 22:24 Test, Urine Sent. as6 22:24 CMP Sent. as6 22:24 CBC with Diff Sent. as6 22:36 CT Stone Protocol In Process Unspecified. EDMS 23:50 No provider procedures requiring assistance completed. IV discontinued, intact, as6 bleeding controlled, No redness/swelling at site. Pressure dressing applied. 23:50 Call light in reach. Provided Education on: antibiotic teaching . as6 Administered Medications: 22:23 Drug: Ondansetron IVP 4 mg Route: IVP; Site: right antecubital; as6 23:51 Follow up: Response: No adverse reaction as6 23:49 Drug: Rocephin IV 1 grams Route: IV; Rate: calculated rate; Site: right antecubital; as6 23:51 Follow up: Response: No adverse reaction; IV Status: Completed infusion; IV Intake: [id number] 23:50 Drug: Acetaminophen PO 1000 mg Route: PO; as6 23:51 Follow up: Response: No adverse reaction as6 23:50 Not Given (Patient Refused): NS 0.9% IV 1000 ml IV at 1000 ml once as6 Medication: 23:50 VIS not applicable for this client. as6 Intake: 23:51 IV: 10ml; Total: 10ml. as6 Outcome: 23:39 Discharge ordered by . kb 23:51 Discharged to home ambulatory. as6 23:51 Condition: stable 23:51 Discharge instructions given to patient, Instructed on discharge instructions, follow up and referral plans. medication usage, Demonstrated understanding of instructions, follow-up care, medications, Prescriptions given X 1. 23:52 Patient left the ED. as6 Signatures: Dispatcher [employer] EDMS Fany Milton, RAINAC STOCK HOUSE WORKER-Linda Miels 3 Nae Houston, RN RN lg3 Mark Wells RN RN as6 Carolin Austin iv
[2022-12-29] MEDS ORDERED: CEFTRIAXONE 1000 MG/VIAL ONE (23:50)
[2022-12-29] MEDS ORDERED: ACETAMINOPHEN 500 MG TAB ONE (23:50)
[2022-12-29] MEDS ORDERED: NA CHLORIDE 0.9% 1,000 ML ONE (23:54)
[2022-12-30 00:35] VITALS: TEMP 100
[2022-12-30 00:36] VITALS: BP 158/81; O2SAT 97
== END 2022-12-29 23:52 | disposition home or self-care (01) ==
LOC: ER 21:37
DX: N39.0 Urinary tract infection, site not specified (principal)
CPT/HCPCS: 36415; 74176; 76377; 80053; 81001; 81025; 85025; 87086; 87088; J0696; J2405; J7030

== ENCOUNTER 2023-04-19 07:08 | Day surgery (SDC) | payer OTHER ==
--- NOTE | 2023-04-15 15:39 | RAD REPORT ---
EXAM DESCRIPTION: RAD - Chest Pa And Lat (2 Views) - 04/15/2023 3:33 pm CLINICAL HISTORY: pre op for surgery Chest pain. COMPARISON: <Comparisons> FINDINGS: The lungs are hyperexpanded but clear. The heart is upper limit of normal in size. No disp laced fractures. IMPRESSION: No acute or concerning finding suspected. The USPSTF recommends annual screening for lung cancer with low-dose CT (LDCT) in adults aged 50 to 8 0 years who have a 20 pack-year smoking history and currently smoke or have quit within the past 15 y ears.
[2023-04-15 15:46] LABS: Absolute Lymphocytes (CBC) 3.4 K/uL (0.7-4.9); Hematocrit 39.7 % (36.0-45.0); Lymphocytes % 29.7 % (15.3-44.8); MCV 86.6 fL (80-100); MPV 7.8 fL (7.6-11.3); Platelets 339 thou/uL (152-406); RBC Red Blood Cell Count 4.58 M/uL (3.86-4.86)
[2023-04-15 15:54] LABS: Protime INR 1.04
[2023-04-19] MEDS ORDERED: Ringers Lactate 1,000 ML IV ONE (07:24)
[2023-04-19] MEDS ORDERED: FENTANYL CITR 100 MCG/2 ML ONE ×2 (07:44→09:49)
[2023-04-19] MEDS ORDERED: propofoL 200 MG/20 ML VIAL IV ONE (07:44)
[2023-04-19] MEDS ORDERED: ONDANSETRON 4 MG/2 ML VIAL ONE (07:44)
[2023-04-19] MEDS ORDERED: MIDAZOLAM HCL 2 MG/2 ML INJ ONE (07:44)
[2023-04-19] MEDS ORDERED: LIDOCAINE 2% MPF 5 ML VIAL ONE (07:44)
[2023-04-19] MEDS ORDERED: KETOROLAC 30 MG/ML INJ ONE (07:45)
[2023-04-19] MEDS ORDERED: CEFAZOLIN SODIUM 2 GM/VIAL ONE (08:26)
[2023-04-19] MEDS ORDERED: EPHEDRINE SULF 50 MG/ML VIAL ONE (08:59)
[2023-04-19] MEDS ORDERED: CODEINE 30MG/APAP 300MG TAB PO PRN (10:02)
--- NOTE | 2023-04-19 10:04 | OP ---
Surgeon: GUS FAULKNER Preoperative Diagnosis: Left nephrolithiasis with multiple, 7, radiopaque calculi. Postoperative Diagnosis: Left nephrolithiasis with multiple, 7, radiopaque calculi. Principle Procedures: ESWL/extracorporeal shockwave lithotripsy of 4 of 7 stones. Indication For Procedure: The patient presented to the Urology Clinic as a recurrent stone former wi th bilateral [id number] volume nephrolithiasis. She was counseled on options for management o f the stone since they were radiopaque and ultimately elected to proceed with an attempt at shockwave lithotripsy. Procedure In Detail: The patient was consented in the preoperative holding area before being transfe rred to the operative suite where general anesthesia was induced. She was given Ancef 2 g IV antimic robial prophylaxis, and pneumo boots were provided for DVT prophylaxis. She was placed supine on the procedure table, and a water bath was placed beneath her left flank. She was padded and secured to the table appropriately. Appropriate targeting in the AP and dorsal ventral positions was then obtai kenna fluoroscopically and we initially centered on the most dense of the stones, which was in her mid pole. Shockwave lithotripsy was then initiated with a power of 4 and increased over the course of ab out 200 shocks to a power of 5. Then, a 2-minute pause was given before shockwave lithotripsy was re sumed, and after about 600 shocks, the stone did appear to disintegrate some fluoroscopically; so we moved to the upper pole stone, 1 of the 2 that was situated beneath the rib. The stone situated over lying the rib was not targeted in this case in the upper pole. So an additional approximately 400 sh ocks was delivered in that location until that stone apparently did appear to fragment. After around a 1000 shocks, we then targeted a stone in the lower pole that did not appear to be beneath the rib. This was targeted until around 1500 shocks delivered where it did appear to fragment as well. At t his point, the therapeutic head was backed out, and survey of the entirety of the kidney fluoroscopic ally was performed. While there was some fragmentation of the 3 stones targeted, it was perhaps not as complete as desired; so we went back to the mid-pole stone initially targeted and delivered an add itional 500-750 shocks in that location after delivering an additional 250 shocks to the lower pole c alculus until it appeared to fragment. We then went back to the upper pole calculus that was not fredrick eath the rib and targeted it for the remainder of approximately 300 shocks for a total of 3000 shocks delivered to 4 of the 7 stones seen in her left kidney. The 2 stones that were beneath the ribs in the upper pole and lower pole were not targeted on this occasion and will subsequently be targeted an d managed. The patient was then awakened from general anesthesia before being transferred to a [facility] and then transferred to the recovery room in good condition. Complications: None. Discharge Disposition: She will follow up in the Urology Clinic in about 1-2 months' time and should obtain a pre-clinic KUB just a few days prior to followup. She will be instructed to strain her uri ne for any stone fragments and bring them in for analysis in the interim. Subsequent targeting will be determined based on the residual stone burden seen on followup x-ray. MELANIE/CONRADO Voice ID: [id number] Report ID: [id number]
[2023-04-19] MEDS ORDERED: CODEINE 30MG/APAP 300MG TAB ONE (10:28)
[2023-04-19] MEDS ORDERED: HYDROCODONE/APAP 5/325 MG TAB ONE (11:11)
[2023-04-19 13:06] VITALS: BP 149/77; TEMP 97.3; O2SAT 96
--- NOTE | 2023-04-19 13:56 | EKG ---
Test Date: 2023-04-15 Test Time: 16:22:11 Electrical Worker: CADY MEASUREMENT RESULTS: Intervals: Rate: 55 TN: 174 QRSD: 96 QT: 428 QTc: 409 Kelly: P: 59 TN: 174 QRS: 84 T: 59 INTERPRETIVE STATEMENTS: Sinus bradycardia Otherwise normal ECG Compared to ECG 06/07/2022 18:05:53 Sinus rhythm no longer present Electronically Signed On 04-19-23 13:43:28 TAR PROCESSING TECHNICIAN by Chapin Edmonds
== END 2023-04-19 11:50 | disposition home or self-care (01) ==
LOC: OR 07:08
PROVIDERS: ATTEND Urology
DX: N20.0 Calculus of kidney (principal); N39.0 Urinary tract infection, site not specified; I10 Essential (primary) hypertension; J45.909 Unspecified asthma, uncomplicated; E66.9 Obesity, unspecified; F32.A Depression, unspecified; Z85.3 Personal history of malignant neoplasm of breast; Z85.038 Personal history of other malignant neoplasm of large intestine
CPT/HCPCS: 36415; 50590; 71046; 80048; 85025; 85610; 87086; 87088; 93005; J2001; J2250; J2405; J2704; J3010; J7120

== ENCOUNTER 2024-05-19 10:40 | Inpatient (IN) | payer OTHER, SELFPAY ==
--- OUTSIDE RECORDS SUMMARY | 2024-05-19 10:45 | XMS REPORT | Continuity of Care Document ---
Author Name Unknown Address [address] [place] [address] [facility] thconnect Address [address] [place] [address] Care Team Providers Care Ethylbenzene Oxidizer Name Role Phone PCP, PATIENT DOES NOT HAVE A Primary Care Physic jerry Unavailable Randall Martinez MD Attending Clinician [phone] RANDALL MARTINEZ Attending Clinician Unavailable [email or web address] Attending Clinician Unavaila ble [email or web address]_S Admitting Clinician Unavaila ble Payers Payer Name Policy Type Policy Number Effective Date Expirati on Date Source [facility] [id number] Problems Condition Name Condition Details Condition Category Status Onset Date Resolution Date Last Treatment Date Treating Clinician Comments Source Benign essential hypertensi on antepartum Benign essential hypertensi on antepartum Disease Active 01-18 00:00: 00 [facility] Normal delivery Normal delivery Disease Active 12-09 00:00: 00 [facility] care and examinatio n immediatel y after delivery care and examinatio n immediatel y after delivery Disease Active 12-07 00:00: 00 [facility] Carpal tunnel syndrome (disorder) Carpal tunnel syndrome (disorder) Active Problem 01/10/2021 [facility] Problem Active 2021-01-10 01:30:09 Kelleeeyad Miller [id number] Recurrent UTI Problem [facility] [id number] Recurrent nephrolith iasis Problem [facility] [id number] S/P hysterecto my Problem [facility] [id number] Stress incontinen ce Problem [facility] Nephrolith iasis Bilateral nephrolith iasis Problem [facility] Allergies, Adverse Reactions, Alerts Allergy Name Allergy Type Status Severity Reaction(s) Onset Date Inactive Date Treating Clinician Comments Source NO KNOWN ALLERGIE S Drug Class Active [facility] Social History Social Habit Start Date Stop Date Quantity Comments Source History of Tobacco Use [facility] Sex Assigned At [facility] Tobacco use and exposure 2023-03-18 00:00:00 2023-03-18 00:00:00 Smokeless tobacco non-user [facility] Alcohol intake 2023-03-18 00:00:00 2023-03-18 00:00:00 Lifetime non-drinker (finding) [facility] History of Social function 2023-03-18 00:00:00 2023-03-18 00:00:00 [facility] Smoking Status Start Date Stop Date Source Never Smoker [facility] Medications Ordered Medication Name Filled Medication Name Start Date Stop Date Current Medication? Ordering Clinician Indication Dosage Frequency Signature (SIG) Comments Components Source promethazin e-DM 6.25 mg-15 mg/5 mL oral syrup 2023-05- 00:00: 00 Yes 5mg/5 mL Gautam Laureano metoprolol tartrate 25 mg tablet 2023-05- 00:00: 00 Yes 1mg Gautam Laureano cyclobenzap rine 10 mg tablet 2023-05 00:00: 00 Yes 1mg Gautam Laureano metoprolol tartrate 25 mg tablet 8-19 00:00: 00 Yes 1mg Gautam Laureano Abilify 2 mg tablet 0 8-02 00:00: 00 Yes 1mg Gautam Laureano gabapentin 100 mg capsule 0 8-02 00:00: 00 Yes 1mg Gautam Laureano metoprolol tartrate 25 mg tablet 0 7-11 00:00: 00 Yes 1mg Gautam Laureano sertraline 50 mg tablet 0 5-20 00:00: 00 Yes 1mg Gautam Laureano hydroxyzine HCl 25 mg tablet 0 5-20 00:00: 00 Yes 1mg Gautam Laureano sertraline 50 mg tablet 0 5-17 00:00: 00 Yes 1mg Gautam Laureano hydroxyzine HCl 25 mg tablet 0 5-17 00:00: 00 Yes 1mg Gautam Laureano sertraline 50 mg tablet 0 5-14 00:00: 00 Yes 1mg Gautam Laureano TAKE 1 TABLET BY MOUTH TWICE DAILY 0 4-10 00:00: 00 Yes Gautam Laureano metoprolol tartrate 25 mg tablet 0 4-08 00:00: 00 Yes 1mg Gautam Laureano sertraline 50 mg tablet 0 3-21 00:00: 00 Yes 1mg Gautam Laureano hydroxyzine HCl 25 mg tablet 0 3-21 00:00: 00 Yes 1mg Gautam Laureano metoprolol tartrate 25 mg tablet 0 3-01 00:00: 00 Yes 1mg Gautam Laureano TAKE 1 TABLET BY MOUTH EVERY 8 HOURS NEEDED 0 2-08 00:00: 00 Yes Gautam Laureano TAKE 1 TABLET BY MOUTH EVERY 8 TO 12 HOURS NEEDED 0 2-08 00:00: 00 Yes Gautam Laureano 1 TABLET BY MOUTH EVERY 6HOURS NEEDED FOR FOR ANXIETY 0 1-19 00:00: 00 09-20 00:00 :00 No 25 Gautam Laureano TAKE 1 TABLET DAILY 2022-05 2-22 00:00: 00 Yes Gautam Laureano 1 TABLET BY MOUTH EVERY 6HOURS NEEDED FOR FOR ANXIETY 2022-05 2- 00:00: 00 09-20 00:00 :00 No 25 Gautam Laureano ACETAMINOPH EN/CODEINE PHOSPHATE 300-30 MG TABS 2022-05 00:00: 00 Yes Gautam Laureano TAKE 1 TABLET DAILY. 2022-05 00:00: 00 09-20 00:00 :00 No 50 Gautam Laureano TAKE 1 TABLET BY MOUTH EVERY DAY 2022-05 00:00: 00 09-20 00:00 :00 No 25 Gautam Laureano TAKE 1 TABLET BY MOUTH EVERY 6 HOURS NEEDED FOR NAUSEA AND VOMITING . 2022-05 00:00: 00 Yes Gautam Laureano ONDANSETRON ODT 4 MG TBDP 2022-05 00:00: 00 Yes Gautam Laureano TAKE 1 CAPSULE BY MOUTH EVERYDAY AT BEDTIME 2022-05 00:00: 00 Yes Gautam Laureano TAKE 1 CAPSULE BY MOUTH EVERY 12 HOURS FOR 7 DAYS. 2022-05 00:00: 00 Yes Gautam Laureano ondansetron 4 mg disintegrat ing tablet 2022-05 00:00: 00 Yes [id number] 4mg Take 1 tablet by mouth every 8 (eight) hours as needed for Nausea and Vomiting (N/V). [facility] proMETHazin e 25 mg tablet 2022-05 00:00: 00 Yes [id number] 25mg Take 1 tablet by mouth every 6 (six) hours as needed for Nausea and Vomiting (N/V). [facility] tamsulosin 0.4 mg 24 hr capsule 2022-05 00:00: 00 Yes [id number] .4mg Take 1 capsule by mouth at bedtime. [facility] cefdinir 300 mg capsule 2022-05 00:00: 00 03-26 05:59 :00 No [id number] 300mg Take 1 capsule by mouth every 12 (twelve) hours for 7 days. [facility] TAKE 1 TABLET DAILY. 2022-05 00:00: 00 09-20 00:00 :00 No 50 Guatam Laureano TAKE 1 TABLET BY MOUTH TWICE A DAY 2022-05 00:00: 00 09-20 00:00 :00 No 25 Gautam Laureano 1 TABLET BY MOUTH EVERY 6HOURS NEEDED FOR FOR ANXIETY 2022-05 0-18 00:00: 00 09-20 00:00 :00 No 25 Gautam Laureano TAKE 1 TABLET DAILY. - 00:00: 00 Yes 50 Gautam Laureano SERTRALINE HYDROCHLORI DE 25 MG TABS -12 00:00: 00 Yes Gautam Laureano CEFPODOXIME PROXETIL 100 MG TABS - 00:00: 00 Yes Gautam Laureano TAKE 1 TABLET BY MOUTH DAILY -18 00:00: 00 09-20 00:00 :00 No 25 Gautam Laureano TAKE 1 TABLET TWICE A DAY 12-24 00:00: 00 09-20 00:00 :00 No 25 Gautam Laureano TAKE 10 ML EVERY 6 HOURS. 12-11 00:00: 00 09-20 00:00 :00 No [id number] Gautam Laureano TAKE 1 TABLET BY MOUTH TWICE A DAY 12-11 00:00: 00 09-20 00:00 :00 No Gautam Laureano TAKE 1 TABLET TWICE A DAY 12-06 00:00: 00 09-20 00:00 :00 No 25 Gautam Laureano CYCLOBENZAP RINE HYDROCHLORI DE 10 MG TABS 11-13 00:00: 00 09-20 00:00 :00 No Gautam Teodoro Georgi IBUPROFEN 800 MG TABS 11-13 00:00: 00 09-20 00:00 :00 No Gautam Teodoro Georgi METHYLPREDN ISOLONE DOSE PACK 4 MG TBPK 11-13 00:00: 00 09-20 00:00 :00 No 4 Gautam Teodoro Georgi PREDNISONE 10 MG TABS 09-22 00:00: 00 09-20 00:00 :00 No Gautam Teodoro Georgi TOBRAMYCIN SULFATE 0.3 % SOLN 09-12 00:00: 00 09-20 00:00 :00 No Gautam Teodoro Georgi CLINDAMYCIN HCL 300 MG 09-12 00:00: 00 09-20 00:00 :00 Gwendolyn Laureano METHYLPREDN ISOLONE DOSE PACK 4 MG TBPK 09-12 00:00: 00 09-20 00:00 :00 Gwendolyn Laureano SULFAMETHOX AZOLE/TRIME THOPRIM DS 800-160 MG TABS 09-12 00:00: 00 09-20 00:00 :00 Gwendolyn Laureano TAKE 1 CAPSULE TWICE DAILY. 09-10 00:00: 00 09-20 00:00 :00 No 500 Gautam Laureano APPLY SPARINGLY TO AFFECTED AREA(S) TWICE DAILY 09-10 00:00: 00 09-20 00:00 :00 No 2 Gautam Laureano 1 TABLET BY MOUTH EVERY 6HRS PRN FOR ANXIETY 09-09 00:00: 00 09-20 00:00 :00 No 25 Gautam Laureano TAKE 1 TABLET TWICE A DAY 09-09 00:00: 00 09-20 00:00 :00 Gwendolyn Laureano PREDNISONE 20 MG TABS 08-15 00:00: 00 09-20 00:00 :00 Gwendolyn Laureano CLOTRIMAZOL E/BETAMETHA SONE DIPROPIO CORIN 1-0.05 % CREA 08-15 00:00: 00 09-20 00:00 :00 Gwendolyn Laureano TAKE 1 TABLET BY MOUTH TWICE DAILY DIRECTED 08-15 00:00: 00 09-20 00:00 :00 Gwendolyn Laureano PROPRANOLOL HYDROCHLORI DE 20 MG TABS - 00:00: 00 09-20 00:00 :00 Gwendolyn Laureano TRAZODONE HYDROCHLORI DE 50 MG TABS - 00:00: 00 09-20 00:00 :00 Gwendolyn Laureano PRAZOSIN HYDROCHLORI DE 1 MG - 00:00: 00 09-20 00:00 :00 Gwendolyn Laureano HYDROXYZINE HYDROCHLORI DE 25 MG TABS - 00:00: 00 09-20 00:00 :00 No Gautam Laureano ESCITALOPRA M OXALATE 10 MG TABS 4 00:00: 00 09-20 00:00 :00 No Gautam Laureano TAKE 1 TABLET TWICE DAILY. 3-24 00:00: 00 09-20 00:00 :00 No 25 Gautam Laureano TAKE 1 TABLET BY MOUTH EVERY 12 HOURS FOR 10 DAYS. 06-07 00:00: 00 09-20 00:00 :00 No Gautam Laureano PREDNISONE 20MG TABLETS 06-07 00:00: 00 09-20 00:00 :00 No Gautam Laureano TAKE 1 TABLET BY MOUTH TWICE A DAY 08-27 00:00: 00 09-20 00:00 :00 No Gautam Laureano TAKE 1 TABLET BY MOUTH EVERY 6 HOURS 08-27 00:00: 00 09-20 00:00 :00 No Gautam Laureano Dose Unknown 08-24 00:00: 00 Yes Gautam Laureano lisinopril 10 mg tablet 08-21 00:00: 00 Yes 1mg Gautam Laureano nitrofurant oin monohydrate /macrocryst als 100 mg capsule 08-21 00:00: 00 Yes 1mg Gautam Laureano lisinopril 10 mg tablet 05-15 00:00: 00 Yes 1mg Gautam Laureano cyclobenzap rine 10 mg tablet 05-15 00:00: 00 Yes 1mg Gautam Laureano labetalol 100 mg tablet 05-15 00:00: 00 Yes 1mg Gautam Laureano naproxen 500 mg tablet 05-15 00:00: 00 Yes 1mg Gautam Laureano lisinopril 10 mg tablet 01-16 00:00: 00 Yes 1mg Gautam Laureano labetalol 100 mg tablet 11-16 00:00: 00 Yes 1mg Gautam Laureano ProAir HFA 90 mcg/actuati on aerosol inhaler 08-28 00:00: 00 Yes 2mcg/ac tuation Gautam Laureano lisinopril 10 mg tablet 08-28 00:00: 00 Yes 1mg Gautam Laureano labetalol 100 mg tablet 08-28 00:00: 00 Yes 1mg Gautam Laureano hydrochloro thiazide 25 mg tablet 08-15 00:00: 00 Yes 1mg Gautam Laureano lisinopril 10 mg tablet 08-15 00:00: 00 Yes 1mg Gautam Laureano cyclobenzap rine 10 mg tablet 0 07-24 00:00: 00 Yes 1mg Gautam Laureano hydrochloro thiazide 25 mg tablet 07-24 00:00: 00 Yes 1mg Gautam Laureano cyclobenzap rine 10 mg tablet 07-24 00:00: 00 Yes 1mg Gautam Laureano naproxen 500 mg tablet 07-24 00:00: 00 Yes 1mg Gautam Laureano labetalol 100 mg tablet 07-24 00:00: 00 Yes 1mg Gautam Laureano cyclobenzap rine 10 mg tablet 12-01 00:00: 00 Yes 1mg Gautam Laureano naproxen 500 mg tablet 12-01 00:00: 00 Yes 1mg Gautam Laureano labetalol 100 mg tablet 12-01 00:00: 00 Yes 1mg Gautam Laureano labetalol 100 mg tablet 10-11 00:00: 00 Yes 1mg Gautam Laureano naproxen 500 mg tablet 10-10 00:00: 00 Yes 1mg Gautam Laureano cyclobenzap rine 10 mg tablet 10-10 00:00: 00 Yes 1mg Gautam Laureano sulfamethox azole 800 mg-trimetho prim 160 mg tablet 10-10 00:00: 00 Yes 1mg Gautam Laureano labetalol 100 mg tablet 2016-0516 00:00: 00 Yes 1mg Gautam Laureano naproxen 500 mg tablet 08-17 00:00: 00 Yes 1mg Gautam Laureano labetalol 100 mg tablet 08-17 00:00: 00 Yes 1mg Gautam Laurenao naproxen 500 mg tablet 0 07-05 00:00: 00 Yes 1mg Gautam Laureano labetalol 100 mg tablet 2015-05 00:00: 00 Yes 1mg Gautam Laureano naproxen 500 mg tablet 02-05 00:00: 00 Yes 1mg Gautam Laureano labetalol 100 mg tablet 02-05 00:00: 00 Yes 1mg Gautam Laureano cyclobenzap rine 10 mg tablet 02-05 00:00: 00 Yes 1mg Gautam Laureano labetalol 100 mg tablet 01-18 00:00: 00 Yes 1mg Gautam Laureano Xopenex HFA 45 mcg/actuati on aerosol inhaler 09-19 00:00: 00 Yes 1mcg/ac tuation Gautam Laureano naproxen 500 mg tablet 09-19 00:00: 00 Yes 1mg Gautam Laureano labetalol 100 mg tablet 09-19 00:00: 00 Yes 1mg Gautam Laureano cyclobenzap rine 10 mg tablet 09-19 00:00: 00 Yes 1mg Gautam Laureano Tessalon Perles 100 mg capsule 09-19 00:00: 00 Yes 1mg Gautam Laureano naproxen 500 mg tablet 05-24 00:00: 00 Yes 1mg Gautam Laureano cyclobenzap rine 10 mg tablet 05-24 00:00: 00 Yes 1mg Gautam Laureano labetalol 100 mg tablet 05-24 00:00: 00 Yes 1mg Gautam Laureano naproxen 500 mg tablet 2014-05 0 00:00: 00 Yes 1mg Gautam Laureano labetalol 100 mg tablet 2014-05 00:00: 00 Yes 1mg Gautam Laureano cyclobenzap rine 10 mg tablet 2014-05 00:00: 00 Yes 1mg Gautam Laureano cyclobenzap rine 10 mg tablet 07-02 00:00: 00 Yes 1mg Gautam Laureano naproxen 500 mg tablet 05-25 00:00: 00 Yes 1mg Gautam Laureano labetalol 100 mg tablet 05-25 00:00: 00 Yes 1mg Gautam Laureano labetalol (NORMODYNE) 100 mg tablet 01-23 00:00: 00 03-18 00:00 :00 No 100mg Take 1 Tab by mouth every 12 (twelve) hours. [facility] vitamin w/FA ( RX OR GENERIC EQUIVALENT) tablet 01-23 00:00: 00 03-18 00:00 :00 No 1{tbl} Take 1 Tab by mouth daily. [facility] docusate calcium (SURFAK) 240 mg capsule 01-23 00:00: 03-18 00:00 :00 No 240mg Take 1 Cap by mouth once daily as needed for Constipati on. [facility] ferrous sulfate 325 mg (65 mg iron) tablet 01-23 00:00: 00 03-18 00:00 :00 No 325mg Take 1 Tab by mouth 2 (two) times daily. [facility] hydrocodone -acetaminop hen (NORCO 5) 5-325 mg tablet 01-23 00:00: 03-18 00:00 :00 No 1{tbl} Take 1-2 Tabs by mouth every 6 (six) hours as needed for Pain. Not to be administer ed at the same time as Bowdle 10 if ordered. For patients < 12 years recommend do not exceed 5 doses or 2.6 gm in 24 hours totals for all acetaminop hen containing products. For adults with normal hepatic function recommend do not exceed 4 grams in 24 hours for all acetaminop hen containing products. [facility] ibuprofen (MOTRIN) 600 mg tablet 01-23 00:00: 03-18 00:00 :00 No 600mg Take 1 Tab by mouth every 6 (six) hours as needed for Pain. [facility] No Known Medications No Known Medications No [facility] Immunizations Ordered Immunization Name Filled Immunization Name Date Status Comments Source Influenza, injectable, Madin Cal[place]a Canine Kidney, preservative-free, quadrivalent Influenza, injectable, Madin Lilly Canine Kidney, preservative-free, quadrivalent 2023-01-22 00:00:00 Completed Gautam Laureano influenza, injectable influenza, injectable 2021-04-11 00:00:00 Stephen Laureano Moderna COVID-19 Vaccine Moderna COVID-19 Vaccine 2020-08-29 00:00:00 Completed Gautam Laureano Moderna COVID-19 Vaccine Moderna COVID-19 Vaccine 2020-08-01 00:00:00 Completed Gautam Laureano Vital Signs Vital Name Observation Time Observation Value Comments S jolynn height 2023-04-06 13:15:00 61 [in_i] Commo n [facility] weight 2023-04-06 13:15:00 166.6 [lb_av] Co mmon [facility] temperature 2023-04-06 13:15:00 97.6 [degF] Com mon [facility] bmi 2023-04-06 13:15:00 31.48 kg/m2 Comm on [facility] oximetry 2023-04-06 13:15:00 98 % Commo n [facility] respiratory rate 2023-04-06 13:15:00 17 /min [facility] blood pressure systolic 2023-04-06 13:15:00 136 mm[Hg] [facility] blood pressure diastolic 2023-04-06 13:15:00 80 mm[Hg] [facility] Systolic blood pressure 2023-03-18 22:07:00 133 mm[Hg] [facility] Diastolic blood pressure 2023-03-18 22:07:00 69 mm[Hg] [facility] Heart rate 2023-03-18 22:07:00 58 /min [facility] 2023-03-18 22:07:00 37 Lashanda [facility] Respiratory rate 2023-03-18 22:07:00 16 /min [facility] Oxygen saturation in Arterial blood by Pulse oximetry 2023-03-18 22:07:00 97 /min [facility] Body height 2023-03-18 19:20:[address] [facility] weight 2023-03-18 19:20:00 76.794 kg [facility] BMI 2023-03-18 19:20:00 31.99 kg/m2 [facility] height 2023-02-03 10:00:00 61 [in_i] Commo n [facility] weight 2023-02-03 10:00:00 160 [lb_av] Comm on [facility] bmi 2023-02-03 10:00:00 30.23 kg/m2 Comm on [facility] BP Systolic 2024-03-21 09:28:00 134 mm[Hg] Step hen F Georgi BP Diastolic 2024-03-21 09:28:00 90 mm[Hg] Ky phen F Georgi Weight Measured 2024-03-21 09:28:00 152.60 pounds Gautam F Georgi Height Measured 2024-03-21 09:28:00 62.00 inches Gautam F Georgi Body Temperature 2024-03-21 09:28:00 98.50 degrees Gautam F Georgi Heart Rate 2024-03-21 09:28:00 75.00 /min Kira en F Georgi Respiratory Rate 2024-03-21 09:28:00 18.00 /min Gautam F Georgi BP Systolic 2024-03-09 17:29:00 147 mm[Hg] Step hen F Georgi BP Diastolic 2024-03-09 17:29:00 95 mm[Hg] Ky phen F Georgi Weight Measured 2024-03-09 17:29:00 157.20 pounds Gautam F Georgi Height Measured 2024-03-09 17:29:00 62.00 inches Gautam F Georgi Body Temperature 2024-03-09 17:29:00 98.00 degrees Gautam F Georgi Heart Rate 2024-03-09 17:29:00 92.00 /min Kira en F Georgi Respiratory Rate 2024-03-09 17:29:00 17.00 /min Gautam F Georgi BP Systolic 2023-07-26 17:15:00 103 mm[Hg] Step hen F Georgi BP Diastolic 2023-07-26 17:15:00 69 mm[Hg] Ky phen F Georgi Weight Measured 2023-07-26 17:15:00 162.40 pounds Gautam F Georgi Height Measured 2023-07-26 17:15:00 62.00 inches Gautam F Georgi Body Temperature 2023-07-26 17:15:00 98.20 degrees Gautam F Georgi Heart Rate 2023-07-26 17:15:00 Kira en F Georgi Respiratory Rate 2023-07-26 17:15:00 18.00 /min Gautam F Georgi BP Systolic 2023-07-08 15:06:00 Step hen F Georgi BP Diastolic 2023-07-08 15:06:00 Ky phen F Georgi Weight Measured 2023-07-08 15:06:00 Gautam F Georgi Height Measured 2023-07-08 15:06:00 Gautam F Georgi Body Temperature 2023-07-08 15:06:00 Gautam F Georgi Heart Rate 2023-07-08 15:06:00 Kira en F Georgi Respiratory Rate 2023-07-08 15:06:00 Gautam F Georgi BP Systolic 2023-04-29 17:04:00 Step hen F Georgi BP Diastolic 2023-04-29 17:04:00 Ky phen F Georgi Weight Measured 2023-04-29 17:04:00 Gautam F Georgi Height Measured 2023-04-29 17:04:00 Gautam F Georgi Body Temperature 2023-04-29 17:04:00 Gautam F Georgi Heart Rate 2023-04-29 17:04:00 Kira en F Georgi Respiratory Rate 2023-04-29 17:04:00 Gautam F Georgi BP Systolic 2023-01-27 11:57:00 Step hen F Georgi BP Diastolic 2023-01-27 11:57:00 Ky phen F Georgi Weight Measured 2023-01-27 11:57:00 Gautam F Georgi Height Measured 2023-01-27 11:57:00 Gautam F Georgi Body Temperature 2023-01-27 11:57:00 Gautam F Georgi Heart Rate 2023-01-27 11:57:00 Kira en F Georgi Respiratory Rate 2023-01-27 11:57:00 Gautam F Georgi BP Systolic 2021-08-21 09:03:00 166 mm[Hg] Step hen F Georgi BP Diastolic 2021-08-21 09:03:00 97 mm[Hg] Ky phen F Georgi Weight Measured 2021-08-21 09:03:00 153.40 pounds Gautam F Georgi Height Measured 2021-08-21 09:03:00 62.00 inches Gautam F Georgi Body Temperature 2021-08-21 09:03:00 98.20 degrees Gautam F Georgi Heart Rate 2021-08-21 09:03:00 74.00 /min Kira en F Georgi Respiratory Rate 2021-08-21 09:03:00 16.00 /min Gautam F Georgi BP Systolic 2020-12-22 14:58:00 Step hen F Georgi BP Diastolic 2020-12-22 14:58:00 Ky phen F Georgi Weight Measured 2020-12-22 14:58:00 120.00 pounds Gautam F Georgi Height Measured 2020-12-22 14:58:00 62.00 inches Gautam F Georgi Body Temperature 2020-12-22 14:58:00 Gautam F Georgi Heart Rate 2020-12-22 14:58:00 Kira en F Georgi Respiratory Rate 2020-12-22 14:58:00 Gautam F Georgi BP Systolic 2019-05-15 13:22:00 115 mm[Hg] Step hen F Georgi BP Diastolic 2019-05-15 13:22:00 71 mm[Hg] Ky phen F Georgi Weight Measured 2019-05-15 13:22:00 168.20 pounds Gautam F Georgi Height Measured 2019-05-15 13:22:00 62.00 inches Gautam F Georgi Body Temperature 2019-05-15 13:22:00 Gautam F Georgi Heart Rate 2019-05-15 13:22:00 74.00 /min Kira en F Georgi Respiratory Rate 2019-05-15 13:22:00 16.00 /min Gautam F Georgi BP Systolic 2019-01-16 13:02:00 102 mm[Hg] Step hen F Georgi BP Diastolic 2019-01-16 13:02:00 60 mm[Hg] Ky phen F Georgi Weight Measured 2019-01-16 13:02:00 163.80 pounds Gautam F Georgi Height Measured 2019-01-16 13:02:00 62.00 inches Gautam F Georgi Body Temperature 2019-01-16 13:02:00 98.10 degrees Gautam F Geogri Heart Rate 2019-01-16 13:02:00 55.00 /min Kira en F Georgi Respiratory Rate 2019-01-16 13:02:00 16.00 /min Gautam F Georgi BP Systolic 2018-08-28 08:29:00 107 mm[Hg] Step stanislav Laureano BP Diastolic 2018-08-28 08:29:00 71 mm[Hg] Ky phen Teodoro Laureano Weight Measured 2018-08-28 08:29:00 166.40 pounds Gautam Laureano Height Measured 2018-08-28 08:29:00 62.00 inches Gautam Laureano Body Temperature 2018-08-28 08:29:00 98.00 degrees Gautam Laureano Heart Rate 2018-08-28 08:29:00 60.00 /min Kira en Teodoro Laureano Respiratory Rate 2018-08-28 08:29:00 16.00 /min Gautam Laureano BP Systolic 2018-07-24 08:48:00 156 mm[Hg] Camden Laureano BP Diastolic 2018-07-24 08:48:00 82 mm[Hg] Ky phen Teodoro Laureano Weight Measured 2018-07-24 08:48:00 176.20 pounds Gautam Laureano Height Measured 2018-07-24 08:48:00 62.00 inches Gautam Laureano Body Temperature 2018-07-24 08:48:00 97.90 degrees Gautam Laureano Heart Rate 2018-07-24 08:48:00 61.00 /min Kira en Teodoro Laureano Respiratory Rate 2018-07-24 08:48:00 16.00 /min Gautam Laureano Procedures Procedure Date / Time Performed Performing Clinician Source [id number] Ultrasound, Soft Tissues Of Head And Neck (eg, Thyroid, Parathyroid, Parotid), Real Time With Image Documentation 2023-07-28 00:00:00 Gautam Laureano ASSIGNMENT OF BENEFITS 2023-03-18 21:28:56 Docto r Unassigned, [place] [facility] HB ECG ROUTINE & RHYTHM STRIP 2023-03-18 20:04:27 Randall Martinez [facility] RAPID INFLUENZA A/B 2023-03-18 20:00:00 Randall Martinez [facility] COVID-19 (ID NOW RAPID TESTING) 2023-03-18 20:00:00 Randall Martinez [facility] URINALYSIS 2023-03-18 19:37:00 Randall Martinez [facility] NOTICE OF PRIVACY PRACTICES 2023-03-18 18:52:24 Doctor Unassigned, [place] [facility] CONSENT/REFUSAL FOR DIAGNOSIS AND TREATMENT 2023-03-18 18:51:35 Doctor Unassigned, [place] [facility] PVR 2023-02-03 00:00:00 [facility] Encounters Start Date/Time End Date/Time Encounter Type Admission Type Attending [facility] Care Department Encounter ID Source 2023-02-03 10:00:01 Outpatient [facility] [id number] [facility] 2024-03-21 09:21:04 2024-03-21 09:21:04 Outpatient [facility] S[facility] [id number] Gautam Laureano 2024-03-21 00:00:00 2024-03-21 00:00:00 Outpatient Visit SFA [id number] Gautam Laureano 2024-03-09 17:17:27 2024-03-09 17:17:27 Outpatient SFA SFA [id number] Gautam Laureano 2024-03-09 00:00:00 2024-03-09 00:00:00 Outpatient Visit SFA [id number] Gautam Laureano 2023-12-26 11:30:27 2023-12-26 11:30:27 Outpatient SFA SFA [id number] Gautam Laureano 2023-12-26 00:00:00 2023-12-26 00:00:00 Outpatient Visit SFA [id number] Gautam Laureano 2023-09-26 16:56:27 2023-09-26 16:56:27 Outpatient SFA SFA [id number] Gautam Laureano 2023-08-17 16:26:48 2023-08-17 16:26:48 Outpatient SFA SFA [id number] Gautam Valerio Georgi 2023-08-15 16:17:50 2023-08-15 16:17:50 Outpatient SFA SFA [id number] Gautam Laureano 2023-07-28 17:41:49 2023-07-28 17:41:[address] [facility] [id number] Gautam Laureano 2023-07-26 17:08:20 2023-07-26 17:08:[address] [facility] [id number] Gautam Laureano 2023-07-08 13:50:54 2023-07-08 13:50:[address] [facility] [id number] Gautam Laureano 2023-04-06 00:00:00 2023-04-06 00:00:00 OFFICE VISIT ESTAB PT LEVEL 4 STLMLC STLMLC [id number] [facility] 2023-03-18 13:22:00 2023-03-18 16:10:00 Emergency Randall Martinez [facility] [id number] [facility] 2023-03-18 13:22:00 2023-03-18 16:10:00 Emergency X RANDALL MARTINEZ [facility] ERT [id number] [facility] 2023-02-03 00:00:00 2023-02-03 00:00:00 OFFICE VISIT NEW PT LEVEL 3 STLMLC STLMLC [id number] [facility] 2023-01-27 11:29:36 2023-01-27 11:29:[address] [facility] 0921 Gautam Valerio Dushore 2022-12-24 08:42:40 2022-12-24 08:42:[address] [facility] 0818 Gautam Valerio Dushore 2022-12-08 00:00:00 2022-12-08 00:00:00 Outpatient GC_GCBZW_Ka diyala_S PRIV PRIV [id number] [facility] 2022-11-25 00:00:00 2022-11-25 00:00:00 Outpatient GC_GCBZW_Ka diyala_S PRIV PRIV [id number] [facility] 2022-11-25 00:00:00 2022-11-25 00:00:00 Outpatient GC_GCBZW_Ka Ana [facility] [id number] [facility] 2022-08-13 15:56:30 2022-08-13 15:56:[address] [facility] [id number] Gautam Laureano 2021-01-07 18:00:00 2021-01-08 04:59:59 Outpatient nullFlavo r [facility] [place] [id number] Britany Miller Results Test Description Test Time Test Comments Results Result Co mments Source LIPID [id number] 06:00:59* Test Item Value Reference Range Interpretation Comme nts CHOLESTEROL (test code = 2210) 178 MG/DL <200 TRIGLYCERIDES (test code = 2232) 106 MG/DL <150 HDL CHOLESTEROL (test code = 2220) 29 MG/DL >39 L CALC LDL CHOL (test code = 2237) 128 MG/DL <100 H NOTE: CALCULATED LDL IS BASED ON STELLA-MARLEY METHOD WHICHINCLUDES ADJUSTABLE TRIGLYCERIDE:VLDL CHOLESTEROL RATIO.THIS FACTOR VARIES BY MEASURED TRIGLYCERIDE AND NON-HDLCHOLESTEROL CONCENTRATIONS WITH INCREASED CALCULATED LDL SEENIN HIGHER TRIGLYCERIDE OR LOWER NON-HDL SPECIMENS. FOR MOREINFORMATION, SEE CLIENT ANNOUNCEMENT AT [email or web address] RISK RATIO LDL/HDL (test code = 2238) 4.41 RATIO <3.22 H COMPREHENSIVE METABOLIC [id number] 06:00:59* Test Item Value Reference Range Interpretation Comme nts GLUCOSE (test code = 2217) 106 MG/DL 70-99 H BUN (test code = 2208) 15 MG/DL 6-20 CREATININE (test code = 2214) 0.93 MG/DL 0.60-1.30 eGFR (2020 CKD-EPI) (test co de = 05286) 78 ML/MIN/1.73 >60 CALC BUN/CREAT (test code = 2235) 16 RATIO 6-28 SODIUM (test code = 2231) 140 MEQ/L 133-146 POTASSIUM (test code = 2228) 5.1 MEQ/L 3.5-5.4 CHLORIDE (test code = 2215) 104 MEQ/L 95-107 CARBON DIOXIDE (test code = 2206) 25 MEQ/L 19-31 CALCIUM (test code = 2208) 9.8 MG/DL 8.5-10.5 PROTEIN, TOTAL (test code = 2228) 6.5 G/DL 6.1-8.3 ALBUMIN (test code = 2200) 4.3 G/DL 3.5-5.2 CALC GLOBULIN (test code = 2239) 2.2 G/DL 1.9-3.7 CALC A/G RATIO (test code = 2233) 2.0 RATIO 1.0-2.6 BILIRUBIN, TOTAL (test code = 2206) 0.2 MG/DL <=1.2 ALKALINE PHOSPHATASE (test code = 2203) 97 U/L 40-115 AST (test code = 2217) 25 U/L 9-40 ALT (test code = 2218) 18 U/L 5-40 HEMOGLOBIN [id number] 03:49:39* Test Item Value Reference Range Interpretation Comme nts HEMOGLOBIN A1c (test code = 59939) 5.5 % 4.2-5.6 CBC W/AUTO DIFF WITH [id number] 03:09:41* Test Item Value Reference Range Interpretation Comme nts WBC (test code = 1001) 7.3 K/UL 3.5-11.0 RBC (test code = 1002) 4.96 M/UL 3.80-5.40 HEMOGLOBIN (test code = 1003) 14.5 G/DL 11.5-15.5 HEMATOCRIT (test code = 1004) 42.9 % 34.0-45.0 MCV (test code = 1005) 86.5 fL 80.0-99.0 MCH (test code = 1006) 29.2 PG 25.0-33.0 MCHC (test code = 1007) 33.8 G/DL 31.0-36.0 RDW (test code = 1038) 12.8 % 11.5-15.0 NEUTROPHILS (test code = 1008) 55.8 % LYMPHOCYTES (test code = 1010) 31.7 % MONOCYTES (test code = 1011) 7.7 % EOSINOPHILS (test code = 1012) 3.9 % BASOPHILS (test code = 1013) 0.6 % IMMATURE GRANULOCYTES (test code = 1036) 0.3 % NUCLEATED RBCS (test code = 1065) 0.0 /100 WBC'S See_Comment [Automated messa ge] The system which generated this result transmitted reference range: 0.0. The reference range was not used to interpret this result as normal/abnormal. PLATELET COUNT (test code = 1015) 373 K/UL 130-400 ABSOLUTE NEUTROPHILS (test code = 1066) 4.05 K/UL 1.50-7.50 ABSOLUTE LYMPHOCYTES (test code = 1067) 2.30 K/UL 1.00-4.00 ABSOLUTE MONOCYTES (test code = 1068) 0.56 K/UL 0.20-1.00 ABSOLUTE EOSINOPHILS (test code = 1040) 0.28 K/UL 0.00-0.50 ABSOLUTE BASOPHILS (test code = 1069) 0.04 K/UL 0.00-0.20 ABS IMMATURE GRANULOCYTES (test code = 1020) 0.02 K/UL 0.00-0.10 ABS NUCLEATED RBCS (test code = 75757) 0.00 K/UL 0.00-0.11 COMPREHENSIVE METABOLIC [id number] 00:00:00* Test Item Value Reference Range Interpretation Comme nts GLUCOSE (test code = 2217) 106 MG/DL BUN (test code = 2208) 15 MG/DL CREATININE (test code = 2214) 0.93 MG/DL eGFR (2020 CKD-EPI) (test co de = 91683) 78 ML/MIN/1.73 CALC BUN/CREAT (test code = 2235) 16 RATIO SODIUM (test code = 2231) 140 MEQ/L POTASSIUM (test code = 2228) 5.1 MEQ/L CHLORIDE (test code = 2215) 104 MEQ/L CARBON DIOXIDE (test code = 2206) 25 MEQ/L CALCIUM (test code = 2209) 9.8 MG/DL PROTEIN, TOTAL (test code = 2229) 6.5 G/DL ALBUMIN (test code = 2201) 4.3 G/DL CALC GLOBULIN (test code = 2240) 2.2 G/DL CALC A/G RATIO (test code = 2234) 2.0 RATIO BILIRUBIN, TOTAL (test code = 2207) 0.2 MG/DL ALKALINE PHOSPHATASE (test code = 2204) 97 U/L AST (test code = 2218) 25 U/L ALT (test code = 2219) 18 U/L Gautam F AustinHEMOGLOBIN [id number] 00:00:00* Test Item Value Reference Range Interpretation Comme tila HEMOGLOBIN A1c (test code = 82673) 5.5 % Gautam PepperH, THIRD [id number] 00:00:00* Test Item Value Reference Range Interpretation Comme tila TSH, THIRD GENERATION (test code = 2821) 1.920 UIU/ML Gautam LaureanoLIPID [id number] 00:00:00* Test Item Value Reference Range Interpretation Comme nts CHOLESTEROL (test code = 2210) 178 MG/DL TRIGLYCERIDES (test code = 2232) 106 MG/DL HDL CHOLESTEROL (test code = 2220) 29 MG/DL CALC LDL CHOL (test code = 2237) 128 MG/DL RISK RATIO LDL/HDL (test cod e = 2238) 4.41 RATIO Gautam LaureanoCBC W/AUTO [id number] 00:00:00* Test Item Value Reference Range Interpretation Comme nts WBC (test code = 1001) 7.3 K/UL RBC (test code = 1002) 4.96 M/UL HEMOGLOBIN (test code = 1003) 14.5 G/DL HEMATOCRIT (test code = 1004) 42.9 % MCV (test code = 1005) 86.5 fL MCH (test code = 1006) 29.2 PG MCHC (test code = 1007) 33.8 G/DL RDW (test code = 1038) 12.8 % NEUTROPHILS (test code = 1008) 55.8 % LYMPHOCYTES (test code = 1010) 31.7 % MONOCYTES (test code = 1011) 7.7 % EOSINOPHILS (test code = 1012) 3.9 % BASOPHILS (test code = 1013) 0.6 % IMMATURE GRANULOCYTES (test code = 1036) 0.3 % NUCLEATED RBCS (test code = 1065) 0.0 /100WBC'S PLATELET COUNT (test code = 1015) 373 K/UL ABSOLUTE NEUTROPHILS (test c ode = 1066) 4.05 K/UL ABSOLUTE LYMPHOCYTES (test c ode = 1067) 2.30 K/UL ABSOLUTE MONOCYTES (test cod e = 1068) 0.56 K/UL ABSOLUTE EOSINOPHILS (test c ode = 1040) 0.28 K/UL ABSOLUTE BASOPHILS (test cod e = 1069) 0.04 K/UL ABS IMMATURE GRANULOCYTES (t est code = 1020) 0.02 K/UL ABS NUCLEATED RBCS (test cod e = 58207) 0.00 K/UL Gautam LaureanoCOMPREHENSIVE METABOLIC [id number] 00:00:00* Test Item Value Reference Range Interpretation Comme nts GLUCOSE (test code = 2217) 106 MG/DL BUN (test code = 2208) 15 MG/DL CREATININE (test code = 2214) 0.93 MG/DL eGFR (2020 CKD-EPI) (test co de = 35857) 78 ML/MIN/1.73 CALC BUN/CREAT (test code = 2235) 16 RATIO SODIUM (test code = 2231) 140 MEQ/L POTASSIUM (test code = 2228) 5.1 MEQ/L CHLORIDE (test code = 2215) 104 MEQ/L CARBON DIOXIDE (test code = 2206) 25 MEQ/L CALCIUM (test code = 2209) 9.8 MG/DL PROTEIN, TOTAL (test code = 2229) 6.5 G/DL ALBUMIN (test code = 2201) 4.3 G/DL CALC GLOBULIN (test code = 2240) 2.2 G/DL CALC A/G RATIO (test code = 2234) 2.0 RATIO BILIRUBIN, TOTAL (test code = 2207) 0.2 MG/DL ALKALINE PHOSPHATASE (test code = 2204) 97 U/L AST (test code = 2218) 25 U/L ALT (test code = 2219) 18 U/L Gautam LaureanoHEMOGLOBIN [id number] 00:00:00* Test Item Value Reference Range Interpretation Comme nts HEMOGLOBIN A1c (test code = 29318) 5.5 % Gautam LaureanoTSH, THIRD [id number] 00:00:00* Test Item Value Reference Range Interpretation Comme nts TSH, THIRD GENERATION (test code = 2821) 1.920 UIU/ML Gautam LaureanoLIPID [id number] 00:00:00* Test Item Value Reference Range Interpretation Comme nts CHOLESTEROL (test code = 2210) 178 MG/DL TRIGLYCERIDES (test code = 2232) 106 MG/DL HDL CHOLESTEROL (test code = 2220) 29 MG/DL CALC LDL CHOL (test code = 2237) 128 MG/DL RISK RATIO LDL/HDL (test cod e = 2238) 4.41 RATIO Gautam LaureanoCBC W/AUTO [id number] 00:00:00* Test Item Value Reference Range Interpretation Comme nts WBC (test code = 1001) 7.3 K/UL RBC (test code = 1002) 4.96 M/UL HEMOGLOBIN (test code = 1003) 14.5 G/DL HEMATOCRIT (test code = 1004) 42.9 % MCV (test code = 1005) 86.5 fL MCH (test code = 1006) 29.2 PG MCHC (test code = 1007) 33.8 G/DL RDW (test code = 1038) 12.8 % NEUTROPHILS (test code = 1008) 55.8 % LYMPHOCYTES (test code = 1010) 31.7 % MONOCYTES (test code = 1011) 7.7 % EOSINOPHILS (test code = 1012) 3.9 % BASOPHILS (test code = 1013) 0.6 % IMMATURE GRANULOCYTES (test code = 1036) 0.3 % NUCLEATED RBCS (test code = 1065) 0.0 /100WBC'S PLATELET COUNT (test code = 1015) 373 K/UL ABSOLUTE NEUTROPHILS (test c ode = 1066) 4.05 K/UL ABSOLUTE LYMPHOCYTES (test c ode = 1067) 2.30 K/UL ABSOLUTE MONOCYTES (test cod e = 1068) 0.56 K/UL ABSOLUTE EOSINOPHILS (test c ode = 1040) 0.28 K/UL ABSOLUTE BASOPHILS (test cod e = 1069) 0.04 K/UL ABS IMMATURE GRANULOCYTES (t est code = 1020) 0.02 K/UL ABS NUCLEATED RBCS (test cod e = 77292) 0.00 K/UL Gautam LaureanoCOMPREHENSIVE METABOLIC [id number] 00:00:00* Test Item Value Reference Range Interpretation Comme nts GLUCOSE (test code = 2217) 106 MG/DL BUN (test code = 2208) 15 MG/DL CREATININE (test code = 2214) 0.93 MG/DL eGFR (2020 CKD-EPI) (test co de = 24731) 78 ML/MIN/1.73 CALC BUN/CREAT (test code = 2235) 16 RATIO SODIUM (test code = 2231) 140 MEQ/L POTASSIUM (test code = 2228) 5.1 MEQ/L CHLORIDE (test code = 2215) 104 MEQ/L CARBON DIOXIDE (test code = 2206) 25 MEQ/L CALCIUM (test code = 2209) 9.8 MG/DL PROTEIN, TOTAL (test code = 2229) 6.5 G/DL ALBUMIN (test code = 2201) 4.3 G/DL CALC GLOBULIN (test code = 2240) 2.2 G/DL CALC A/G RATIO (test code = 2234) 2.0 RATIO BILIRUBIN, TOTAL (test code = 2207) 0.2 MG/DL ALKALINE PHOSPHATASE (test code = 2204) 97 U/L AST (test code = 2218) 25 U/L ALT (test code = 2219) 18 U/L Gautam LaureanoHEMOGLOBIN [id number] 00:00:00* Test Item Value Reference Range Interpretation Comme tila HEMOGLOBIN A1c (test code = 93946) 5.5 % Gautam LaureanoTSH, THIRD [id number] 00:00:00* Test Item Value Reference Range Interpretation Comme tila TSH, THIRD GENERATION (test code = 2821) 1.920 UIU/ML Gautam LaureanoLIPID [id number] 00:00:00* Test Item Value Reference Range Interpretation Comme nts CHOLESTEROL (test code = 2210) 178 MG/DL TRIGLYCERIDES (test code = 2232) 106 MG/DL HDL CHOLESTEROL (test code = 2220) 29 MG/DL CALC LDL CHOL (test code = 2237) 128 MG/DL RISK RATIO LDL/HDL (test cod e = 2238) 4.41 RATIO Gautam LaureanoCBC W/AUTO [id number] 00:00:00* Test Item Value Reference Range Interpretation Comme nts WBC (test code = 1001) 7.3 K/UL RBC (test code = 1002) 4.96 M/UL HEMOGLOBIN (test code = 1003) 14.5 G/DL HEMATOCRIT (test code = 1004) 42.9 % MCV (test code = 1005) 86.5 fL MCH (test code = 1006) 29.2 PG MCHC (test code = 1007) 33.8 G/DL RDW (test code = 1038) 12.8 % NEUTROPHILS (test code = 1008) 55.8 % LYMPHOCYTES (test code = 1010) 31.7 % MONOCYTES (test code = 1011) 7.7 % EOSINOPHILS (test code = 1012) 3.9 % BASOPHILS (test code = 1013) 0.6 % IMMATURE GRANULOCYTES (test code = 1036) 0.3 % NUCLEATED RBCS (test code = 1065) 0.0 /100WBC'S PLATELET COUNT (test code = 1015) 373 K/UL ABSOLUTE NEUTROPHILS (test c ode = 1066) 4.05 K/UL ABSOLUTE LYMPHOCYTES (test c ode = 1067) 2.30 K/UL ABSOLUTE MONOCYTES (test cod e = 1068) 0.56 K/UL ABSOLUTE EOSINOPHILS (test c ode = 1040) 0.28 K/UL ABSOLUTE BASOPHILS (test cod e = 1069) 0.04 K/UL ABS IMMATURE GRANULOCYTES (t est code = 1020) 0.02 K/UL ABS NUCLEATED RBCS (test cod e = 67017) 0.00 K/UL Gautam LaureanoHIV 1/2 4TH GEN, RFLX [id number] 03:40:15* Test Item Value Reference Range Interpretation Comme nts HIV 1/2 4TH GEN, RFLX CONF ( test code = 3514) NON-REACTIVE NON-REACTIVE HEPATITIS PANEL, [id number] 03:40:15* Test Item Value Reference Range Interpretation Comme nts HEPATITIS A IgM (test code = 61023) NON-REACTIVE NON-REACTIVE HEPATITIS B CORE IgM (test code = 4644) NON-REACTIVE NON-REACTIVE HEPATITIS B SURF AG (test code = 2739) NON-REACTIVE NON-REACTIVE HEPATITIS C ANTIBODY (test code = 4675) NON-REACTIVE NON-REACTIVE INTERPRETATION HEPATITIS A: (test code = 2552) (NOTE) Hepatitis A serology shows no evidence of acute hepatitis A. INTERPRETATION HEPATITIS B: (test code = 75605) (NOTE) Hepatitis B serology shows no evidence of acute hepatitis B andno indication of exposure to hepatitis B virus in the previous nisha eight months. INTERPRETATION HEPATITIS C: (test code = 16924) (NOTE) Hepatitis C serology shows no evidence of exposure to hepatitisC virus at this time. It can take up to 12 months after exposure tothe hepatitis C virus for antibodies to become detectable in the blood in certain patients. [id number] 02:25:27* Test Item Value Reference Range Interpretation Comme nts RPR RESULT (test code = 3501) NON-REACTIVE NON-REACTIVE RPR TITER (test code = 3500) NOT INDIC. TITER NOT INDIC. ACUTE HEPATITIS [id number] 00:00:00* Test Item Value Reference Range Interpretation Comme nts HEPATITIS A IgM (test code = 14264) NON-REACTIVE HEPATITIS B CORE IgM (test c ode = 4644) NON-REACTIVE HEPATITIS B SURF AG (test co de = 2739) NON-REACTIVE HEPATITIS C ANTIBODY (test c ode = 4675) NON-REACTIVE INTERPRETATION HEPATITIS A: (test code = 2552) (NOTE) INTERPRETATION HEPATITIS B: (test code = 10730) (NOTE) INTERPRETATION HEPATITIS C: (test code = 01811) (NOTE) Gautam LaureanoHIV 1/2 4TH GEN, RFLX [id number] 00:00:00* Test Item Value Reference Range Interpretation Comme nts HIV 1/2 4TH GEN, RFLX CONF ( test code = 3514) NON-REACTIVE Gautam [id number] 00:00:00* Test Item Value Reference Range Interpretation Comme nts RPR RESULT (test code = 3501) NON-REACTIVE RPR TITER (test code = 3500) NOT INDIC. TITER Gautam LaureanoACUTE HEPATITIS [id number] 00:00:00* Test Item Value Reference Range Interpretation Comme nts HEPATITIS A IgM (test code = 94617) NON-REACTIVE HEPATITIS B CORE IgM (test c ode = 4644) NON-REACTIVE HEPATITIS B SURF AG (test co de = 2739) NON-REACTIVE HEPATITIS C ANTIBODY (test c ode = 4675) NON-REACTIVE INTERPRETATION HEPATITIS A: (test code = 2552) (NOTE) INTERPRETATION HEPATITIS B: (test code = 07709) (NOTE) INTERPRETATION HEPATITIS C: (test code = 10772) (NOTE) Gautam Valerio AustinHIV 1/2 4TH GEN, RFLX [id number] 00:00:00* Test Item Value Reference Range Interpretation Comme nts HIV 1/2 4TH GEN, RFLX CONF ( test code = 3514) NON-REACTIVE Gautam [id number] 00:00:00* Test Item Value Reference Range Interpretation Comme nts RPR RESULT (test code = 3501) NON-REACTIVE RPR TITER (test code = 3500) NOT INDIC. TITER Gautam F AustinACUTE HEPATITIS [id number] 00:00:00* Test Item Value Reference Range Interpretation Comme nts HEPATITIS A IgM (test code = 71209) NON-REACTIVE HEPATITIS B CORE IgM (test c ode = 4644) NON-REACTIVE HEPATITIS B SURF AG (test co de = 2739) NON-REACTIVE HEPATITIS C ANTIBODY (test c ode = 4675) NON-REACTIVE INTERPRETATION HEPATITIS A: (test code = 2552) (NOTE) INTERPRETATION HEPATITIS B: (test code = 34877) (NOTE) INTERPRETATION HEPATITIS C: (test code = 34945) (NOTE) Gautam LaureanoHIV 1/2 4TH GEN, RFLX [id number] 00:00:00* Test Item Value Reference Range Interpretation Comme nts HIV 1/2 4TH GEN, RFLX CONF ( test code = 3514) NON-REACTIVE Gautam [id number] 00:00:00* Test Item Value Reference Range Interpretation Comme nts RPR RESULT (test code = 3501) NON-REACTIVE RPR TITER (test code = 3500) NOT INDIC. TITER Gautam LaureanoCT/NG, NAAT, [id number] 14:50:02* Test Item Value Reference Range Interpretation Comme nts CHLAMYDIA, NAAT, URINE (test code = 04606) NEGATIVE NEGATIVE Testing is perfo rmed with Adam ARMANI 6800/8800 systems usingreal-time polymerase chain reaction (PCR) method. A negative result does not exclude low level infection, specimensampling error, or collection error. GONORRHEA, NAAT, URINE (test code = 05865) NEGATIVE NEGATIVE Testing is perfo rmed with Adam ARMANI 6800/8800 systems usingreal-time polymerase chain reaction (PCR) method. A negative result does not exclude low level infection, specimensampling error, or collection error. [facility] has important pathology staff changes effective 07/07/2022. New pathology staff will provide uninterrupted, excellent patient care and clinical consultation. See URL: [email or web address]. UNLESS OTHERWISE INDICATED, ALL TESTING PERFORMED AT [facility] [address] [place] [address] SPANISH INTERPRETER: EMMANUELLE BAER M.D. CLIA NUMBER [id number] [facility]. [id number] CT/NG, TMA, [id number] 00:00:00* Test Item Value Reference Range Interpretation Comme nts CHLAMYDIA, NAAT, URINE (test code = 71485) NEGATIVE GONORRHEA, NAAT, URINE (test code = 98688) NEGATIVE Gautam Valerio AustinCT/NG, TMA, [id number] 00:00:00* Test Item Value Reference Range Interpretation Comme nts CHLAMYDIA, NAAT, URINE (test code = 62426) NEGATIVE GONORRHEA, NAAT, URINE (test code = 09924) NEGATIVE Gautam Valerio AustinCT/NG, TMA, [id number] 00:00:00* Test Item Value Reference Range Interpretation Comme nts CHLAMYDIA, NAAT, URINE (test code = 29054) NEGATIVE GONORRHEA, NAAT, URINE (test code = 06065) NEGATIVE Gautam VenturaLTURE, [id number] 11:01:06SPECIMEN NUMBER: [id number] CULTURE, URINE SPECIMEN NUMBER: [id number] SPECIMEN COMMENT: URINE SOURCE: URINE REPORT STATUS: FINAL FINAL REPORT: 08/23/2021 10-50,000 CFU/ML UROGENITAL BEBETO PRESENT NOCOMMON PATHOGENSCULTURE, [id number] 00:00:00* Test Item Value Reference Range Interpretation Comme nts CULTURE, URINE (test code = 68952) SPECIMEN NUMBER: [id number] Gautam LaureanoCULTURE, [id number] 00:00:00* Test Item Value Reference Range Interpretation Comme nts CULTURE, URINE (test code = 13855) SPECIMEN NUMBER: [id number] Gautam LaureanoCULTURE, [id number] 00:00:00* Test Item Value Reference Range Interpretation Comme nts CULTURE, URINE (test code = 22604) SPECIMEN NUMBER: [id number] Gautam LaureanoHEPATITIS PANEL, [id number] 04:28:00* Test Item Value Reference Range Interpretation Comme nts HEPATITIS A IgM (test code = 08389) NON-REACTIVE NON-REACTIVE HEPATITIS B CORE IgM (test code = 4644) NON-REACTIVE NON-REACTIVE HEPATITIS B SURF AG (test code = 2739) NON-REACTIVE NON-REACTIVE HEPATITIS C ANTIBODY (test code = 4675) NON-REACTIVE NON-REACTIVE INTERPRETATION HEPATITIS A: (test code = 2552) (NOTE) Hepatitis A sero logy shows no evidence of acute hepatitis A. INTERPRETATION HEPATITIS B: (test code = 01999) (NOTE) Hepatitis B sero logy shows no evidence of acute hepatitis B andno indication of exposure to hepatitis B virus in the previous nisha eight months. INTERPRETATION HEPATITIS C: (test code = 42288) (NOTE) Hepatitis C sero logy shows no evidence of exposure to hepatitisC virus at this time. It can take up to 12 months after exposure tothe hepatitis C virus for antibodies to become detectable in the blood in certain patients. UNLESS OTHERWISE INDICATED, ALL [facility]ING [facility]FOR[facility] [address] [place] [address] SPANISH INTERPRETER: DMITRY JAMESON M.D. CLIA NUMBER [id number] [facility] [place]. [id number] HIV 1/2 4TH GEN, RFLX [id number] 04:28:00* Test Item Value Reference Range Interpretation Comme nts HIV 1/2 4TH GEN, RFLX CONF ( test code = 3514) NON-REACTIVE NON-REACTIVE COMPREHENSIVE METABOLIC [id number] 04:06:36* Test Item Value Reference Range Interpretation Comme nts GLUCOSE (test code = 2217) 92 MG/DL 70-99 BUN (test code = 8) 12 MG/DL 6-20 CREATININE (test code = 2214) 0.66 MG/DL 0.60-1.30 eGFR (2020 CKD-EPI) (test code = 89866) 112 ML/MIN/1.73 >60 CALC BUN/CREAT (test code = 2235) 18 RATIO 6-28 SODIUM (test code = 2231) 139 MEQ/L 133-146 POTASSIUM (test code = 2228) 4.5 MEQ/L 3.5-5.4 CHLORIDE (test code = 2215) 101 MEQ/L 95-107 CARBON DIOXIDE (test code = 2206) 25 MEQ/L 19-31 CALCIUM (test code = 2209) 9.7 MG/DL 8.5-10.5 PROTEIN, TOTAL (test code = 222) 7.7 G/DL 6.1-8.3 ALBUMIN (test code = 220) 4.3 G/DL 3.5-5.2 CALC GLOBULIN (test code = 2240) 3.4 G/DL 1.9-3.7 CALC A/G RATIO (test code = 223) 1.3 RATIO 1.0-2.6 BILIRUBIN, TOTAL (test code = 2207) 0.3 MG/DL See_Comment [Automated me ssage] The system which generated this result transmitted reference range: <=1.2. The reference range was not used to interpret this result as normal/abnormal. ALKALINE PHOSPHATASE (test code = 2203) 127 U/L 40-113 H AST (test code = 2218) 19 U/L 9-40 ALT (test code = 2219) 15 U/L 5-40 LIPID [id number] 04:06:36* Test Item Value Reference Range Interpretation Comme nts CHOLESTEROL (test code = 2210) 211 MG/DL <200 H TRIGLYCERIDES (test code = 2232) 152 MG/DL <150 H HDL CHOLESTEROL (test code = 222) 43 MG/DL >39 CALC LDL CHOL (test code = 2237) 140 MG/DL <100 H NOTE: CALCULATED LDL IS BASED ON STELLA-MARLEY METHOD WHICHINCLUDES ADJUSTABLE TRIGLYCERIDE:VLDL CHOLESTEROL RATIO.THIS FACTOR VARIES BY MEASURED TRIGLYCERIDE AND NON-HDLCHOLESTEROL CONCENTRATIONS WITH INCREASED CALCULATED LDL SEENIN HIGHER TRIGLYCERIDE OR LOWER NON-HDL SPECIMENS. FOR MOREINFORMATION, SEE CLIENT ANNOUNCEMENT AT [email or web address] RATIO LDL/HDL (test code = 223) 3.26 RATIO <3.22 H COMPREHENSIVE METABOLIC [id number] 00:00:00* Test Item Value Reference Range Interpretation Comme nts GLUCOSE (test code = 2216) 92 MG/DL BUN (test code = 8) 12 MG/DL CREATININE (test code = 2214) 0.66 MG/DL eGFR (2020 CKD-EPI) (test code = 48026) 112 ML/MIN/1.73 CALC BUN/CREAT (test code = 2235) 18 RATIO SODIUM (test code = 223) 139 MEQ/L POTASSIUM (test code = 2228) 4.5 MEQ/L CHLORIDE (test code = 2215) 101 MEQ/L CARBON DIOXIDE (test code = 2205) 25 MEQ/L CALCIUM (test code = 220) 9.7 MG/DL PROTEIN, TOTAL (test code = 2229) 7.7 G/DL ALBUMIN (test code = 2201) 4.3 G/DL CALC GLOBULIN (test code = 2240) 3.4 G/DL CALC A/G RATIO (test code = 2234) 1.3 RATIO BILIRUBIN, TOTAL (test code = 2207) 0.3 MG/DL ALKALINE PHOSPHATASE (test code = 2204) 127 U/L AST (test code = 2218) 19 U/L ALT (test code = 2219) 15 U/L Gautam LaureanoLIPID [id number] 00:00:00* Test Item Value Reference Range Interpretation Comme nts CHOLESTEROL (test code = 2210) 211 MG/DL TRIGLYCERIDES (test code = 2232) 152 MG/DL HDL CHOLESTEROL (test code = 2220) 43 MG/DL CALC LDL CHOL (test code = 2237) 140 MG/DL RISK RATIO LDL/HDL (test cod e = 2238) 3.26 RATIO Gautam LaureanoACUTE HEPATITIS [id number] 00:00:00* Test Item Value Reference Range Interpretation Comme nts HEPATITIS A IgM (test code = 50733) NON-REACTIVE HEPATITIS B CORE IgM (test c ode = 4644) NON-REACTIVE HEPATITIS B SURF AG (test co de = 1739) NON-REACTIVE HEPATITIS C ANTIBODY (test c ode = 4688) NON-REACTIVE INTERPRETATION HEPATITIS A: (test code = 2552) (NOTE) INTERPRETATION HEPATITIS B: (test code = 59775) (NOTE) INTERPRETATION HEPATITIS C: (test code = 26462) (NOTE) Gautam LaureanoHIV AB/AG COMBO RFLX [id number] 00:00:00* Test Item Value Reference Range Interpretation Comme nts HIV 1/2 4TH GEN, RFLX CONF ( test code = 3514) NON-REACTIVE Gautam LaureanoCOMPREHENSIVE METABOLIC [id number] 00:00:00* Test Item Value Reference Range Interpretation Comme nts GLUCOSE (test code = 2217) 92 MG/DL BUN (test code = 2208) 12 MG/DL CREATININE (test code = 2214) 0.66 MG/DL eGFR (2020 CKD-EPI) (test code = 54536) 112 ML/MIN/1.73 CALC BUN/CREAT (test code = 2235) 18 RATIO SODIUM (test code = 2231) 139 MEQ/L POTASSIUM (test code = 2228) 4.5 MEQ/L CHLORIDE (test code = 2215) 101 MEQ/L CARBON DIOXIDE (test code = 2206) 25 MEQ/L CALCIUM (test code = 2209) 9.7 MG/DL PROTEIN, TOTAL (test code = 2229) 7.7 G/DL ALBUMIN (test code = 2201) 4.3 G/DL CALC GLOBULIN (test code = 2240) 3.4 G/DL CALC A/G RATIO (test code = 2234) 1.3 RATIO BILIRUBIN, TOTAL (test code = 2207) 0.3 MG/DL ALKALINE PHOSPHATASE (test code = 2204) 127 U/L AST (test code = 2218) 19 U/L ALT (test code = 2219) 15 U/L Gautam LaureanoLIPID [id number] 00:00:00* Test Item Value Reference Range Interpretation Comme nts CHOLESTEROL (test code = 2210) 211 MG/DL TRIGLYCERIDES (test code = 2232) 152 MG/DL HDL CHOLESTEROL (test code = 2220) 43 MG/DL CALC LDL CHOL (test code = 2237) 140 MG/DL RISK RATIO LDL/HDL (test cod e = 2238) 3.26 RATIO Gautam LaureanoACUTE HEPATITIS [id number] 00:00:00* Test Item Value Reference Range Interpretation Comme nts HEPATITIS A IgM (test code = 48690) NON-REACTIVE HEPATITIS B CORE IgM (test c ode = 4644) NON-REACTIVE HEPATITIS B SURF AG (test co de = 0509) NON-REACTIVE HEPATITIS C ANTIBODY (test c ode = 4650) NON-REACTIVE INTERPRETATION HEPATITIS A: (test code = 2552) (NOTE) INTERPRETATION HEPATITIS B: (test code = 11050) (NOTE) INTERPRETATION HEPATITIS C: (test code = 54209) (NOTE) Gautam LaureanoHIV AB/AG COMBO RFLX [id number] 00:00:00* Test Item Value Reference Range Interpretation Comme nts HIV 1/2 4TH GEN, RFLX CONF ( test code = 3514) NON-REACTIVE Gautam Valerio GeorgiCOMPREHENSIVE METABOLIC [id number] 00:00:00* Test Item Value Reference Range Interpretation Comme nts GLUCOSE (test code = 2217) 92 MG/DL BUN (test code = 2208) 12 MG/DL CREATININE (test code = 2214) 0.66 MG/DL eGFR (2020 CKD-EPI) (test code = 57094) 112 ML/MIN/1.73 CALC BUN/CREAT (test code = 2235) 18 RATIO SODIUM (test code = 2231) 139 MEQ/L POTASSIUM (test code = 2228) 4.5 MEQ/L CHLORIDE (test code = 2215) 101 MEQ/L CARBON DIOXIDE (test code = 2206) 25 MEQ/L CALCIUM (test code = 2209) 9.7 MG/DL PROTEIN, TOTAL (test code = 2229) 7.7 G/DL ALBUMIN (test code = 2201) 4.3 G/DL CALC GLOBULIN (test code = 2240) 3.4 G/DL CALC A/G RATIO (test code = 2234) 1.3 RATIO BILIRUBIN, TOTAL (test code = 2207) 0.3 MG/DL ALKALINE PHOSPHATASE (test code = 2204) 127 U/L AST (test code = 2218) 19 U/L ALT (test code = 2219) 15 U/L Gautam LaureanoLIPID [id number] 00:00:00* Test Item Value Reference Range Interpretation Comme nts CHOLESTEROL (test code = 2210) 211 MG/DL TRIGLYCERIDES (test code = 2232) 152 MG/DL HDL CHOLESTEROL (test code = 2220) 43 MG/DL CALC LDL CHOL (test code = 2237) 140 MG/DL RISK RATIO LDL/HDL (test cod e = 2238) 3.26 RATIO Gautam LaureanoACUTE HEPATITIS [id number] 00:00:00* Test Item Value Reference Range Interpretation Comme nts HEPATITIS A IgM (test code = 27707) NON-REACTIVE HEPATITIS B CORE IgM (test c ode = 4644) NON-REACTIVE HEPATITIS B SURF AG (test co de = 2509) NON-REACTIVE HEPATITIS C ANTIBODY (test c ode = 4671) NON-REACTIVE INTERPRETATION HEPATITIS A: (test code = 2552) (NOTE) INTERPRETATION HEPATITIS B: (test code = 02463) (NOTE) INTERPRETATION HEPATITIS C: (test code = 48339) (NOTE) Gautam LaureanoHIV AB/AG COMBO RFLX [id number] 00:00:00* Test Item Value Reference Range Interpretation Comme nts HIV 1/2 4TH GEN, RFLX CONF ( test code = 3514) NON-REACTIVE Gautam Valerio AustinCOMPREHENSIVE METABOLIC [id number] 00:00:00* Test Item Value Reference Range Interpretation Comme nts GLUCOSE (test code = 2217) 101 MG/DL BUN (test code = 2208) 12 MG/DL CREATININE (test code = 2214) 0.74 MG/DL eGFR AMER. (test cod e = 06832) 118 ML/MIN/1.73 eGFR NON- AMER. (test code = 15387) 102 ML/MIN/1.73 CALC BUN/CREAT (test code = 2235) 16 RATIO SODIUM (test code = 2231) 139 MEQ/L POTASSIUM (test code = 2228) 4.6 MEQ/L CHLORIDE (test code = 2215) 100 MEQ/L CARBON DIOXIDE (test code = 2206) 26 MEQ/L CALCIUM (test code = 2209) 9.8 MG/DL PROTEIN, TOTAL (test code = 2229) 7.6 G/DL ALBUMIN (test code = 2201) 4.7 G/DL CALC GLOBULIN (test code = 2240) 2.9 G/DL CALC A/G RATIO (test code = 2234) 1.6 RATIO BILIRUBIN, TOTAL (test code = 2207) 0.3 MG/DL ALKALINE PHOSPHATASE (test code = 2204) 113 U/L AST (test code = 2218) 12 U/L ALT (test code = 2219) 12 U/L Gautam Valerio AustinLIPID [id number] 00:00:00* Test Item Value Reference Range Interpretation Comme nts CHOLESTEROL (test code = 2210) 194 MG/DL TRIGLYCERIDES (test code = 2232) 185 MG/DL HDL CHOLESTEROL (test code = 2220) 38 MG/DL CALC LDL CHOL (test code = 2237) 119 MG/DL RISK RATIO LDL/HDL (test cod e = 2238) 3.13 RATIO Gautam Valerio AustinCOMPREHENSIVE METABOLIC [id number] 00:00:00* Test Item Value Reference Range Interpretation Comme nts GLUCOSE (test code = 2217) 101 MG/DL BUN (test code = 2208) 12 MG/DL CREATININE (test code = 2214) 0.74 MG/DL eGFR AMER. (test cod e = 30756) 118 ML/MIN/1.73 eGFR NON- AMER. (test code = 25869) 102 ML/MIN/1.73 CALC BUN/CREAT (test code = 2235) 16 RATIO SODIUM (test code = 2231) 139 MEQ/L POTASSIUM (test code = 2228) 4.6 MEQ/L CHLORIDE (test code = 2215) 100 MEQ/L CARBON DIOXIDE (test code = 2206) 26 MEQ/L CALCIUM (test code = 2209) 9.8 MG/DL PROTEIN, TOTAL (test code = 2229) 7.6 G/DL ALBUMIN (test code = 2201) 4.7 G/DL CALC GLOBULIN (test code = 2240) 2.9 G/DL CALC A/G RATIO (test code = 2234) 1.6 RATIO BILIRUBIN, TOTAL (test code = 2207) 0.3 MG/DL ALKALINE PHOSPHATASE (test code = 2204) 113 U/L AST (test code = 2218) 12 U/L ALT (test code = 2219) 12 U/L Gautam Valerio DushoreLIPID [id number] 00:00:00* Test Item Value Reference Range Interpretation Comme nts CHOLESTEROL (test code = 2210) 194 MG/DL TRIGLYCERIDES (test code = 2232) 185 MG/DL HDL CHOLESTEROL (test code = 2220) 38 MG/DL CALC LDL CHOL (test code = 2237) 119 MG/DL RISK RATIO LDL/HDL (test cod e = 2238) 3.13 RATIO Gautam LaureanoCOMPREHENSIVE METABOLIC [id number] 00:00:00* Test Item Value Reference Range Interpretation Comme nts GLUCOSE (test code = 2217) 101 MG/DL BUN (test code = 2208) 12 MG/DL CREATININE (test code = 2214) 0.74 MG/DL eGFR AMER. (test cod e = 02946) 118 ML/MIN/1.73 eGFR NON- AMER. (test code = 89121) 102 ML/MIN/1.73 CALC BUN/CREAT (test code = 2235) 16 RATIO SODIUM (test code = 2231) 139 MEQ/L POTASSIUM (test code = 2228) 4.6 MEQ/L CHLORIDE (test code = 2215) 100 MEQ/L CARBON DIOXIDE (test code = 2206) 26 MEQ/L CALCIUM (test code = 2209) 9.8 MG/DL PROTEIN, TOTAL (test code = 2229) 7.6 G/DL ALBUMIN (test code = 2201) 4.7 G/DL CALC GLOBULIN (test code = 2240) 2.9 G/DL CALC A/G RATIO (test code = 2234) 1.6 RATIO BILIRUBIN, TOTAL (test code = 2207) 0.3 MG/DL ALKALINE PHOSPHATASE (test code = 2204) 113 U/L AST (test code = 2218) 12 U/L ALT (test code = 2219) 12 U/L Gautam LaureanoLIPID [id number] 00:00:00* Test Item Value Reference Range Interpretation Comme nts CHOLESTEROL (test code = 2210) 194 MG/DL TRIGLYCERIDES (test code = 2232) 185 MG/DL HDL CHOLESTEROL (test code = 2220) 38 MG/DL CALC LDL CHOL (test code = 2237) 119 MG/DL RISK RATIO LDL/HDL (test cod e = 2238) 3.13 RATIO Gautam LaureanoLIPID [id number] 00:00:00* Test Item Value Reference Range Interpretation Comme nts CHOLESTEROL (test code = 2210) 200 MG/DL TRIGLYCERIDES (test code = 2232) 282 MG/DL HDL CHOLESTEROL (test code = 2220) 30 MG/DL CALC LDL CHOL (test code = 2237) 114 MG/DL RISK RATIO LDL/HDL (test cod e = 2238) 3.79 RATIO Gautam LaureanoCOMPREHENSIVE METABOLIC [id number] 00:00:00* Test Item Value Reference Range Interpretation Comme nts GLUCOSE (test code = 2217) 91 MG/DL BUN (test code = 2208) 10 MG/DL CREATININE (test code = 2214) 0.77 MG/DL eGFR AMER. (test cod e = 83020) 114 ML/MIN/1.73 eGFR NON- AMER. (test code = 24170) 98 ML/MIN/1.73 CALC BUN/CREAT (test code = 2235) 13 RATIO SODIUM (test code = 2231) 142 MEQ/L POTASSIUM (test code = 2228) 4.7 MEQ/L CHLORIDE (test code = 2215) 100 MEQ/L CARBON DIOXIDE (test code = 2206) 27 MEQ/L CALCIUM (test code = 2209) 10.2 MG/DL PROTEIN, TOTAL (test code = 2229) 7.8 G/DL ALBUMIN (test code = 2201) 4.9 G/DL CALC GLOBULIN (test code = 2240) 2.9 G/DL CALC A/G RATIO (test code = 2234) 1.7 RATIO BILIRUBIN, TOTAL (test code = 2207) 0.3 MG/DL ALKALINE PHOSPHATASE (test code = 2204) 111 U/L AST (test code = 2218) 19 U/L ALT (test code = 2219) 12 U/L Gautam LaureanoLIPID [id number] 00:00:00* Test Item Value Reference Range Interpretation Comme nts CHOLESTEROL (test code = 2210) 200 MG/DL TRIGLYCERIDES (test code = 2232) 282 MG/DL HDL CHOLESTEROL (test code = 2220) 30 MG/DL CALC LDL CHOL (test code = 2237) 114 MG/DL RISK RATIO LDL/HDL (test cod e = 2238) 3.79 RATIO Gautam LaureanoCOMPREHENSIVE METABOLIC [id number] 00:00:00* Test Item Value Reference Range Interpretation Comme nts GLUCOSE (test code = 2217) 91 MG/DL BUN (test code = 2208) 10 MG/DL CREATININE (test code = 2214) 0.77 MG/DL eGFR AMER. (test cod e = 38902) 114 ML/MIN/1.73 eGFR NON- AMER. (test code = 03078) 98 ML/MIN/1.73 CALC BUN/CREAT (test code = 2235) 13 RATIO SODIUM (test code = 2231) 142 MEQ/L POTASSIUM (test code = 2228) 4.7 MEQ/L CHLORIDE (test code = 2215) 100 MEQ/L CARBON DIOXIDE (test code = 2206) 27 MEQ/L CALCIUM (test code = 2209) 10.2 MG/DL PROTEIN, TOTAL (test code = 2229) 7.8 G/DL ALBUMIN (test code = 2201) 4.9 G/DL CALC GLOBULIN (test code = 2240) 2.9 G/DL CALC A/G RATIO (test code = 2234) 1.7 RATIO BILIRUBIN, TOTAL (test code = 2207) 0.3 MG/DL ALKALINE PHOSPHATASE (test code = 2204) 111 U/L AST (test code = 2218) 19 U/L ALT (test code = 2219) 12 U/L Gautam LaureanoLIPID [id number] 00:00:00* Test Item Value Reference Range Interpretation Comme nts CHOLESTEROL (test code = 2210) 200 MG/DL TRIGLYCERIDES (test code = 2232) 282 MG/DL HDL CHOLESTEROL (test code = 2220) 30 MG/DL CALC LDL CHOL (test code = 2237) 114 MG/DL RISK RATIO LDL/HDL (test cod e = 2238) 3.79 RATIO Gautam LaureanoCOMPREHENSIVE METABOLIC [id number] 00:00:00* Test Item Value Reference Range Interpretation Comme nts GLUCOSE (test code = 2217) 91 MG/DL BUN (test code = 2208) 10 MG/DL CREATININE (test code = 2214) 0.77 MG/DL eGFR AMER. (test cod e = 21809) 114 ML/MIN/1.73 eGFR NON- AMER. (test code = 60254) 98 ML/MIN/1.73 CALC BUN/CREAT (test code = 2235) 13 RATIO SODIUM (test code = 2231) 142 MEQ/L POTASSIUM (test code = 2228) 4.7 MEQ/L CHLORIDE (test code = 2215) 100 MEQ/L CARBON DIOXIDE (test code = 2206) 27 MEQ/L CALCIUM (test code = 2209) 10.2 MG/DL PROTEIN, TOTAL (test code = 2229) 7.8 G/DL ALBUMIN (test code = 2201) 4.9 G/DL CALC GLOBULIN (test code = 2240) 2.9 G/DL CALC A/G RATIO (test code = 2234) 1.7 RATIO BILIRUBIN, TOTAL (test code = 2207) 0.3 MG/DL ALKALINE PHOSPHATASE (test code = 2204) 111 U/L AST (test code = 2218) 19 U/L ALT (test code = 2219) 12 U/L Gautam LaureanoCBC W/AUTO [id number] 00:00:00* Test Item Value Reference Range Interpretation Comme nts WBC (test code = 1001) 8.1 K/UL RBC (test code = 1002) 4.89 M/UL HEMOGLOBIN (test code = 1003) 13.9 G/DL HEMATOCRIT (test code = 1004) 41.2 % MCV (test code = 1005) 84.3 fL MCH (test code = 1006) 28.4 PG MCHC (test code = 1007) 33.7 G/DL RDW (test code = 1038) 12.8 % NEUTROPHILS (test code = 1008) 55.8 % LYMPHOCYTES (test code = 1010) 33.8 % MONOCYTES (test code = 1011) 7.3 % EOSINOPHILS (test code = 1012) 2.5 % BASOPHILS (test code = 1013) 0.6 % PLATELET COUNT (test code = 1015) 370 K/UL Gautam LaureanoHEMOGLOBIN [id number] 00:00:00* Test Item Value Reference Range Interpretation Comme nts HEMOGLOBIN A1c (test code = 17063) 5.5 % Gautam [id number] 00:00:00* Test Item Value Reference Range Interpretation Comme nts TSH (test code = 2821) 3.000 UIU/ML Gautam LaureanoCOMPREHENSIVE METABOLIC [id number] 00:00:00* Test Item Value Reference Range Interpretation Comme nts GLUCOSE (test code = 2217) 92 MG/DL BUN (test code = 2208) 13 MG/DL CREATININE (test code = 2214) 0.68 MG/DL eGFR AMER. (test cod e = 16054) 130 ML/MIN/1.73 eGFR NON- AMER. (test code = 92605) 112 ML/MIN/1.73 CALC BUN/CREAT (test code = 2235) 19 RATIO SODIUM (test code = 2231) 136 MEQ/L POTASSIUM (test code = 2228) 4.2 MEQ/L CHLORIDE (test code = 2215) 97 MEQ/L CARBON DIOXIDE (test code = 2206) 25 MEQ/L CALCIUM (test code = 2209) 9.3 MG/DL PROTEIN, TOTAL (test code = 2229) 7.2 G/DL ALBUMIN (test code = 2201) 4.6 G/DL CALC GLOBULIN (test code = 2240) 2.6 G/DL CALC A/G RATIO (test code = 2234) 1.8 RATIO BILIRUBIN, TOTAL (test code = 2207) 0.3 MG/DL ALKALINE PHOSPHATASE (test code = 2204) 92 U/L AST (test code = 2218) 19 U/L ALT (test code = 2219) 15 U/L Gautam LaureanoLIPID [id number] 00:00:00* Test Item Value Reference Range Interpretation Comme nts CHOLESTEROL (test code = 2210) 200 MG/DL TRIGLYCERIDES (test code = 2232) 280 MG/DL HDL CHOLESTEROL (test code = 2220) 31 MG/DL CALC LDL CHOL (test code = 2237) 113 MG/DL RISK RATIO LDL/HDL (test cod e = 2238) 3.65 RATIO Gautam LaureanoCBC W/AUTO [id number] 00:00:00* Test Item Value Reference Range Interpretation Comme nts WBC (test code = 1001) 8.1 K/UL RBC (test code = 1002) 4.89 M/UL HEMOGLOBIN (test code = 1003) 13.9 G/DL HEMATOCRIT (test code = 1004) 41.2 % MCV (test code = 1005) 84.3 fL MCH (test code = 1006) 28.4 PG MCHC (test code = 1007) 33.7 G/DL RDW (test code = 1038) 12.8 % NEUTROPHILS (test code = 1008) 55.8 % LYMPHOCYTES (test code = 1010) 33.8 % MONOCYTES (test code = 1011) 7.3 % EOSINOPHILS (test code = 1012) 2.5 % BASOPHILS (test code = 1013) 0.6 % PLATELET COUNT (test code = 1015) 370 K/UL Gautam LaureanoHEMOGLOBIN [id number] 00:00:00* Test Item Value Reference Range Interpretation Comme tila HEMOGLOBIN A1c (test code = 68869) 5.5 % Gautam [id number] 00:00:00* Test Item Value Reference Range Interpretation Comme nts TSH (test code = 2821) 3.000 UIU/ML Gautam LaureanoCOMPREHENSIVE METABOLIC [id number] 00:00:00* Test Item Value Reference Range Interpretation Comme nts GLUCOSE (test code = 2217) 92 MG/DL BUN (test code = 2208) 13 MG/DL CREATININE (test code = 2214) 0.68 MG/DL eGFR AMER. (test cod e = 96444) 130 ML/MIN/1.73 eGFR NON- AMER. (test code = 64374) 112 ML/MIN/1.73 CALC BUN/CREAT (test code = 2235) 19 RATIO SODIUM (test code = 2231) 136 MEQ/L POTASSIUM (test code = 2228) 4.2 MEQ/L CHLORIDE (test code = 2215) 97 MEQ/L CARBON DIOXIDE (test code = 2206) 25 MEQ/L CALCIUM (test code = 2209) 9.3 MG/DL PROTEIN, TOTAL (test code = 2229) 7.2 G/DL ALBUMIN (test code = 2201) 4.6 G/DL CALC GLOBULIN (test code = 2240) 2.6 G/DL CALC A/G RATIO (test code = 2234) 1.8 RATIO BILIRUBIN, TOTAL (test code = 2207) 0.3 MG/DL ALKALINE PHOSPHATASE (test code = 2204) 92 U/L AST (test code = 2218) 19 U/L ALT (test code = 2219) 15 U/L Gautam LaureanoLIPID [id number] 00:00:00* Test Item Value Reference Range Interpretation Comme nts CHOLESTEROL (test code = 2210) 200 MG/DL TRIGLYCERIDES (test code = 2232) 280 MG/DL HDL CHOLESTEROL (test code = 2220) 31 MG/DL CALC LDL CHOL (test code = 2237) 113 MG/DL RISK RATIO LDL/HDL (test cod e = 2238) 3.65 RATIO Gautam Valerio GeorgiCBC W/AUTO [id number] 00:00:00* Test Item Value Reference Range Interpretation Comme nts WBC (test code = 1001) 8.1 K/UL RBC (test code = 1002) 4.89 M/UL HEMOGLOBIN (test code = 1003) 13.9 G/DL HEMATOCRIT (test code = 1004) 41.2 % MCV (test code = 1005) 84.3 fL MCH (test code = 1006) 28.4 PG MCHC (test code = 1007) 33.7 G/DL RDW (test code = 1038) 12.8 % NEUTROPHILS (test code = 1008) 55.8 % LYMPHOCYTES (test code = 1010) 33.8 % MONOCYTES (test code = 1011) 7.3 % EOSINOPHILS (test code = 1012) 2.5 % BASOPHILS (test code = 1013) 0.6 % PLATELET COUNT (test code = 1015) 370 K/UL Gautam LaureanoHEMOGLOBIN [id number] 00:00:00* Test Item Value Reference Range Interpretation Comme tila HEMOGLOBIN A1c (test code = 41482) 5.5 % Gautam [id number] 00:00:00* Test Item Value Reference Range Interpretation Comme tila TSH (test code = 2821) 3.000 UIU/ML Gautam LaureanoCOMPREHENSIVE METABOLIC [id number] 00:00:00* Test Item Value Reference Range Interpretation Comme nts GLUCOSE (test code = 2217) 92 MG/DL BUN (test code = 2208) 13 MG/DL CREATININE (test code = 2214) 0.68 MG/DL eGFR AMER. (test cod e = 29166) 130 ML/MIN/1.73 eGFR NON- AMER. (test code = 01814) 112 ML/MIN/1.73 CALC BUN/CREAT (test code = 2235) 19 RATIO SODIUM (test code = 2231) 136 MEQ/L POTASSIUM (test code = 2228) 4.2 MEQ/L CHLORIDE (test code = 2215) 97 MEQ/L CARBON DIOXIDE (test code = 2206) 25 MEQ/L CALCIUM (test code = 2209) 9.3 MG/DL PROTEIN, TOTAL (test code = 2229) 7.2 G/DL ALBUMIN (test code = 2201) 4.6 G/DL CALC GLOBULIN (test code = 2240) 2.6 G/DL CALC A/G RATIO (test code = 2234) 1.8 RATIO BILIRUBIN, TOTAL (test code = 2207) 0.3 MG/DL ALKALINE PHOSPHATASE (test code = 2204) 92 U/L AST (test code = 2218) 19 U/L ALT (test code = 2219) 15 U/L Gautam LaureanoLIPID [id number] 00:00:00* Test Item Value Reference Range Interpretation Comme nts CHOLESTEROL (test code = 2210) 200 MG/DL TRIGLYCERIDES (test code = 2232) 280 MG/DL HDL CHOLESTEROL (test code = 2220) 31 MG/DL CALC LDL CHOL (test code = 2237) 113 MG/DL RISK RATIO LDL/HDL (test cod e = 2238) 3.65 RATIO Gautam Valerio AustinHPV HIGH RISK WITH GENOTYPE, [id number] 00:00:00* Test Item Value Reference Range Interpretation Comme nts HPV HIGH RISK INTERP (test c ode = 20797) NEGATIVE HPV 16 (test code = 05435) NEGATIVE HPV 18 (test code = 55419) NEGATIVE HPV, HR, OTHER GENOTYPES (te st code = 65666) NEGATIVE Gautam LaureanoPAP TEST, THINPREP, [id number] 00:00:00* Test Item Value Reference Range Interpretation Comme nts SOURCE: (test code = 8001) Cervical/Endocervical SLIDES: (test code = 8011) 1 LMP: (test code = 8021) 2016-01-08 SPECIMEN ADEQUACY: (test code = 88327) (NOTE) INTERPRETATION: (test code = 64495) NO EPITHELIAL ABNORMALITY SEE BELOW OTHER COMMENTS: (test code = 8081) (NOTE) MAINTENANCE CARPENTER: (test code = 8101) NERIS ROBERSON(ASCP)IAC QC TECHNOLOGIST: (test code = 8111) NERIS Harmon(ASCP)IAC LOCATION: (test code = 27912) (NOTE) CPT: (test code = 8140) (NOTE) Gautam Valerio AustinHPV HIGH RISK WITH GENOTYPE, [id number] 00:00:00* Test Item Value Reference Range Interpretation Comme nts HPV HIGH RISK INTERP (test c ode = 53078) NEGATIVE HPV 16 (test code = 15792) NEGATIVE HPV 18 (test code = 41496) NEGATIVE HPV, HR, OTHER GENOTYPES (te st code = 57768) NEGATIVE Gautam LaureanoPAP TEST, THINPREP, [id number] 00:00:00* Test Item Value Reference Range Interpretation Comme nts SOURCE: (test code = 8001) Cervical/Endocervical SLIDES: (test code = 8011) 1 LMP: (test code = 8021) 2016-01-08 SPECIMEN ADEQUACY: (test code = 75628) (NOTE) INTERPRETATION: (test code = 34017) NO EPITHELIAL ABNORMALITY SEE BELOW OTHER COMMENTS: (test code = 8081) (NOTE) MAINTENANCE CARPENTER: (test code = 8101) NERIS ROBERSON(ASCP)IAC QC TECHNOLOGIST: (test code = 8111) NERIS Harmon(ASCP)IAC LOCATION: (test code = 97187) (NOTE) CPT: (test code = 8140) (NOTE) Gautam LaureanoHPV HIGH RISK WITH GENOTYPE, [id number] 00:00:00* Test Item Value Reference Range Interpretation Comme nts HPV HIGH RISK INTERP (test c ode = 13617) NEGATIVE HPV 16 (test code = 41393) NEGATIVE HPV 18 (test code = 48856) NEGATIVE HPV, HR, OTHER GENOTYPES (te st code = 71702) NEGATIVE Gautam LaureanoPAP TEST, THINPREP, [id number] 00:00:00* Test Item Value Reference Range Interpretation Comme nts SOURCE: (test code = 8001) Cervical/Endocervical SLIDES: (test code = 8011) 1 LMP: (test code = 8021) 2016-01-08 SPECIMEN ADEQUACY: (test code = 24808) (NOTE) INTERPRETATION: (test code = 99688) NO EPITHELIAL ABNORMALITY SEE BELOW OTHER COMMENTS: (test code = 8081) (NOTE) MAINTENANCE CARPENTER: (test code = 8101) NERIS ROBERSON(ASCP)IAC QC TECHNOLOGIST: (test code = 8111) NERIS Harmon(ASCP)IAC LOCATION: (test code = 00812) (NOTE) CPT: (test code = 8140) (NOTE) Gautam LaureanoLIPID [id number] 00:00:00* Test Item Value Reference Range Interpretation Comme nts CHOLESTEROL (test code = 2210) 185 MG/DL TRIGLYCERIDES (test code = 2232) 104 MG/DL HDL CHOLESTEROL (test code = 2220) 34 MG/DL CALCULATED LDL CHOL (test co de = 2237) 130 MG/DL RISK RATIO LDL/HDL (test cod e = 2238) 3.83 RATIO Gautam LaureanoLIPID [id number] 00:00:00* Test Item Value Reference Range Interpretation Comme nts CHOLESTEROL (test code = 2210) 185 MG/DL TRIGLYCERIDES (test code = 2232) 104 MG/DL HDL CHOLESTEROL (test code = 2220) 34 MG/DL CALCULATED LDL CHOL (test co de = 2237) 130 MG/DL RISK RATIO LDL/HDL (test cod e = 2238) 3.83 RATIO Gautam F AustinLIPID [id number] 00:00:00* Test Item Value Reference Range Interpretation Comme nts CHOLESTEROL (test code = 2210) 185 MG/DL TRIGLYCERIDES (test code = 2232) 104 MG/DL HDL CHOLESTEROL (test code = 2220) 34 MG/DL CALCULATED LDL CHOL (test co de = 2237) 130 MG/DL RISK RATIO LDL/HDL (test cod e = 2238) 3.83 RATIO Gautam LaureanoCBC W/AUTO [id number] 00:00:00* Test Item Value Reference Range Interpretation Comme nts WBC (test code = 1001) 8.0 K/UL RBC (test code = 1002) 4.87 M/UL HEMOGLOBIN (test code = 1003) 14.2 G/DL HEMATOCRIT (test code = 1004) 41.8 % MCV (test code = 1005) 85.8 fL MCH (test code = 1006) 29.2 PG MCHC (test code = 1007) 34.0 G/DL RDW (test code = 1038) 13.4 % NEUTROPHILS (test code = 1008) 65 % LYMPHOCYTES (test code = 1010) 26 % MONOCYTES (test code = 1011) 6 % EOSINOPHILS (test code = 1012) 2 % PLATELET COUNT (test code = 1015) 328 K/UL Gautam LaureanoLIPID [id number] 00:00:00* Test Item Value Reference Range Interpretation Comme nts CHOLESTEROL (test code = 2210) 175 MG/DL TRIGLYCERIDES (test code = 2232) 213 MG/DL HDL CHOLESTEROL (test code = 2220) 31 MG/DL CALCULATED LDL CHOL (test co de = 2237) 101 MG/DL RISK RATIO LDL/HDL (test cod e = 2238) 3.27 RATIO Gautam LaureanoTHYROID II PROFILE (T3U, T4, T7, TSH)2015-02-11 00:00:00* Test Item Value Reference Range Interpretation Comme nts T3 UPTAKE (test code = 2817) 25.5 % T4 (THYROXINE) (test code = 2819) 9.1 UG/DL CALCULATED T7 (FTI) (test co de = 2820) 2.32 TSH (test code = 2821) 1.4 UIU/ML Gautam LaureanoHEMOGLOBIN [id number] 00:00:00* Test Item Value Reference Range Interpretation Comme nts HEMOGLOBIN A1c (test code = 35832) 5.5 % Gautam LaureanoCOMPREHENSIVE METABOLIC [id number] 00:00:00* Test Item Value Reference Range Interpretation Comme nts GLUCOSE (test code = 2217) 110 MG/DL BUN (test code = 2208) 11 MG/DL CREATININE (test code = 2214) 1.0 MG/DL eGFR AMER. (test cod e = 28933) 76 ML/MIN/1.73 eGFR NON- AMER. (test code = 10790) 63 ML/MIN/1.73 CALCULATED BUN/CREAT (test code = 2235) 11 RATIO SODIUM (test code = 2231) 139 MEQ/L POTASSIUM (test code = 2228) 4.4 MEQ/L CHLORIDE (test code = 2215) 103 MEQ/L CARBON DIOXIDE (test code = 2206) 25 MEQ/L CALCIUM (test code = 2209) 9.8 MG/DL PROTEIN, TOTAL (test code = 2229) 7.1 G/DL ALBUMIN (test code = 2201) 4.2 G/DL CALCULATED GLOBULIN (test co de = 2240) 2.9 G/DL CALCULATED A/G RATIO (test code = 2234) 1.4 RATIO BILIRUBIN, TOTAL (test code = 2207) 0.4 MG/DL ALKALINE PHOSPHATASE (test code = 2204) 82 U/L SGOT (AST) (test code = 2218) 20 U/L SGPT (ALT) (test code = 2219) 17 U/L Gautam LaureanoCBC W/AUTO [id number] 00:00:00* Test Item Value Reference Range Interpretation Comme nts WBC (test code = 1001) 8.0 K/UL RBC (test code = 1002) 4.87 M/UL HEMOGLOBIN (test code = 1003) 14.2 G/DL HEMATOCRIT (test code = 1004) 41.8 % MCV (test code = 1005) 85.8 fL MCH (test code = 1006) 29.2 PG MCHC (test code = 1007) 34.0 G/DL RDW (test code = 1038) 13.4 % NEUTROPHILS (test code = 1008) 65 % LYMPHOCYTES (test code = 1010) 26 % MONOCYTES (test code = 1011) 6 % EOSINOPHILS (test code = 1012) 2 % PLATELET COUNT (test code = 1015) 328 K/UL Gautam LaureanoLIPID [id number] 00:00:00* Test Item Value Reference Range Interpretation Comme nts CHOLESTEROL (test code = 2210) 175 MG/DL TRIGLYCERIDES (test code = 2232) 213 MG/DL HDL CHOLESTEROL (test code = 2220) 31 MG/DL CALCULATED LDL CHOL (test co de = 2237) 101 MG/DL RISK RATIO LDL/HDL (test cod e = 2238) 3.27 RATIO Gautam LaureanoTHYROID II PROFILE (T3U, T4, T7, TSH)2015-02-11 00:00:00* Test Item Value Reference Range Interpretation Comme nts T3 UPTAKE (test code = 2817) 25.5 % T4 (THYROXINE) (test code = 2819) 9.1 UG/DL CALCULATED T7 (FTI) (test co de = 2820) 2.32 TSH (test code = 2821) 1.4 UIU/ML Gautam LaureanoHEMOGLOBIN [id number] 00:00:00* Test Item Value Reference Range Interpretation Comme tila HEMOGLOBIN A1c (test code = 33235) 5.5 % Gautam LaureanoCOMPREHENSIVE METABOLIC [id number] 00:00:00* Test Item Value Reference Range Interpretation Comme nts GLUCOSE (test code = 2217) 110 MG/DL BUN (test code = 2208) 11 MG/DL CREATININE (test code = 2214) 1.0 MG/DL eGFR AMER. (test cod e = 58644) 76 ML/MIN/1.73 eGFR NON- AMER. (test code = 66962) 63 ML/MIN/1.73 CALCULATED BUN/CREAT (test code = 2235) 11 RATIO SODIUM (test code = 2231) 139 MEQ/L POTASSIUM (test code = 2228) 4.4 MEQ/L CHLORIDE (test code = 2215) 103 MEQ/L CARBON DIOXIDE (test code = 2206) 25 MEQ/L CALCIUM (test code = 2209) 9.8 MG/DL PROTEIN, TOTAL (test code = 2229) 7.1 G/DL ALBUMIN (test code = 2201) 4.2 G/DL CALCULATED GLOBULIN (test co de = 2240) 2.9 G/DL CALCULATED A/G RATIO (test code = 2234) 1.4 RATIO BILIRUBIN, TOTAL (test code = 2207) 0.4 MG/DL ALKALINE PHOSPHATASE (test code = 2204) 82 U/L SGOT (AST) (test code = 2218) 20 U/L SGPT (ALT) (test code = 2219) 17 U/L Gautam LaureanoCBC W/AUTO [id number] 00:00:00* Test Item Value Reference Range Interpretation Comme nts WBC (test code = 1001) 8.0 K/UL RBC (test code = 1002) 4.87 M/UL HEMOGLOBIN (test code = 1003) 14.2 G/DL HEMATOCRIT (test code = 1004) 41.8 % MCV (test code = 1005) 85.8 fL MCH (test code = 1006) 29.2 PG MCHC (test code = 1007) 34.0 G/DL RDW (test code = 1038) 13.4 % NEUTROPHILS (test code = 1008) 65 % LYMPHOCYTES (test code = 1010) 26 % MONOCYTES (test code = 1011) 6 % EOSINOPHILS (test code = 1012) 2 % PLATELET COUNT (test code = 1015) 328 K/UL Gautam LaureanoLIPID [id number] 00:00:00* Test Item Value Reference Range Interpretation Comme nts CHOLESTEROL (test code = 2210) 175 MG/DL TRIGLYCERIDES (test code = 2232) 213 MG/DL HDL CHOLESTEROL (test code = 2220) 31 MG/DL CALCULATED LDL CHOL (test co de = 2237) 101 MG/DL RISK RATIO LDL/HDL (test cod e = 2238) 3.27 RATIO Gautam LaureanoTHYROID II PROFILE (T3U, T4, T7, TSH)2015-02-11 00:00:00* Test Item Value Reference Range Interpretation Comme nts T3 UPTAKE (test code = 2817) 25.5 % T4 (THYROXINE) (test code = 2819) 9.1 UG/DL CALCULATED T7 (FTI) (test co de = 2820) 2.32 TSH (test code = 2821) 1.4 UIU/ML Gautam LaureanoHEMOGLOBIN [id number] 00:00:00* Test Item Value Reference Range Interpretation Comme nts HEMOGLOBIN A1c (test code = 76673) 5.5 % Gautam Valerio GeorgiCOMPREHENSIVE METABOLIC [id number] 00:00:00* Test Item Value Reference Range Interpretation Comme nts GLUCOSE (test code = 2217) 110 MG/DL BUN (test code = 2208) 11 MG/DL CREATININE (test code = 2214) 1.0 MG/DL eGFR AMER. (test cod e = 24941) 76 ML/MIN/1.73 eGFR NON- AMER. (test code = 19017) 63 ML/MIN/1.73 CALCULATED BUN/CREAT (test code = 2235) 11 RATIO SODIUM (test code = 2231) 139 MEQ/L POTASSIUM (test code = 2228) 4.4 MEQ/L CHLORIDE (test code = 2215) 103 MEQ/L CARBON DIOXIDE (test code = 2206) 25 MEQ/L CALCIUM (test code = 2209) 9.8 MG/DL PROTEIN, TOTAL (test code = 2229) 7.1 G/DL ALBUMIN (test code = 2201) 4.2 G/DL CALCULATED GLOBULIN (test co de = 2240) 2.9 G/DL CALCULATED A/G RATIO (test code = 2234) 1.4 RATIO BILIRUBIN, TOTAL (test code = 2207) 0.4 MG/DL ALKALINE PHOSPHATASE (test code = 2204) 82 U/L SGOT (AST) (test code = 2218) 20 U/L SGPT (ALT) (test code = 2219) 17 U/L Gautam Valerio GeorgiAbdomen 1 View (KUB)Abdomen 1 View (KUB)
[2024-05-19 12:30] LABS: Specific Gravity < 1.005 (1.005-1.030)
[2024-05-19 12:43] LABS: Specific Gravity < 1.005 (1.005-1.030); Sqamous Epithelial <5 /HPF (None Seen); Urine Bacteria <20 /HPF (<20); Urine Bilirubin NEGATIVE (Negative); Urine Blood 2+ (Negative); Urine Clarity Extremely Turbid (Clear); Urine Color Colorless (Yellow); Urine Culture Reflex Order REFLEXED; Urine Glucose NEGATIVE (Negative); Urine Ketones NEGATIVE (Negative); Urine Microscopic Reflex YN ORDER UMIC; Urine Mucus Slight /HPF (None Seen); Urine Nitrite NEGATIVE (Negative); Urine Protein TRACE (Negative); Urine Urobilinogen Normal (Normal); Urine WBC >50 /HPF (<5); Urine Yeast (Budding) Trace /HPF (None Seen); Urine pH 6.5 (5.0-7.0)
[2024-05-19 13:09] LABS: Absolute Eosinophils 0.1 K/uL (0-0.5); Absolute Lymphocytes (CBC) 2.2 K/uL (0.7-4.9); Absolute Neutrophil 15.5 K/uL (1.8-8.0); Basophils % 0.1 % (0-1.3); Eosinophils % 0.4 % (0-4.4); Hematocrit 42.5 % (36.0-45.0); Hemoglobin 14.7 g/dL (12.0-15.0); Lymphocytes % 11.7 % (15.3-44.8); MCH 29.9 pg (27.0-35.0); MCHC 34.6 g/dL (32.0-36.0); MCV 86.4 fL (80-100); MPV 7.7 fL (7.6-11.3); Monocytes % 5.1 % (3.3-12.3); Neutrophils % 82.7 % (41.7-73.7); Platelets 314 thou/uL (152-406); RBC Red Blood Cell Count 4.93 M/uL (3.86-4.86); Red Cell Distribution Width 12.9 % (12.1-15.2)
[2024-05-19 13:26] LABS: Albumin 3.5 g/dL (3.4-5.0); Albumin/Globulin Ratio 0.9 (1.1-1.8); Bilirubin Total 0.5 mg/dL (0.2-1.0); Globulin 4.1 g/dL (2.3-3.5); Protein, Total 7.6 g/dL (6.4-8.2)
[2024-05-19] MEDS ORDERED: NA CHLORIDE 0.9% 1,000 ML ONE (13:26)
[2024-05-19] MEDS ORDERED: ONDANSETRON 4 MG/2 ML VIAL ONE (13:26)
[2024-05-19] MEDS ORDERED: HYDROMORPHONE HCL 1 MG/ML INJ ONE (13:26)
[2024-05-19] MEDS ORDERED: KETOROLAC 30 MG/ML INJ ONE (13:26)
--- NOTE | 2024-05-19 14:31 | RAD REPORT ---
EXAMINATION: CT Abdomen Pelvis Wo Contrast CLINICAL INDICATION: Female, 44 years old. flank pain, stone protocol TECHNIQUE: CT abdomen and pelvis was performed, without IV contrast, as per department protocol. Axia l, sagittal and coronal reconstructions were obtained. One or more of the following dose reduction techniques were used: Automated exposure control, adjustment of the mA and kV according to the patien t size, and iterative reconstruction. Unless otherwise specified, incidental findings do not require dedicated imaging follow-up. COMPARISON: 12/29/2022 FINDINGS: The lack of intravenous contrast limits the sensitivity of this exam for evaluation of solid visceral organs, vascular structures, and retroperitoneum. LOWER CHEST: The visualized lung bases are clear. LIVER: Normal in size and contour. No focal lesion. BILIARY SYSTEM: No suspicious abnormalities. SPLEEN: Normal size. No focal lesion. PANCREAS: No mass, ductal dilation, or scot-pancreatic fluid. ADRENALS: Normal; no mass. KIDNEYS AND URETERS: Normal size and contour. Bilateral symmetric calcific densities in the renal pyr amids, may reflect calculi, sequelae of renal papillary necrosis, or a combination of both, stable. Stable mild right hydroureter and hydronephrosis with no evidence of an obstructing calculus. Finding s may relate to a recently passed stone versus asymmetric reflux disease. No left hydronephrosis. URINARY BLADDER: Normal contour. GASTROINTESTINAL TRACT: No evidence of bowel obstruction, significant free fluid, free air or abscess . APPENDIX: Normal appendix. LYMPH NODES: No lymphadenopathy. MUSCULOSKELETAL: No acute or suspicious osseous abnormality. ADDITIONAL FINDINGS: None. IMPRESSION: Stable mild prominence of the right renal pelvis and ureter, with no evidence of a distal obstructing calculus. Stable bilateral symmetric calcific densities along the renal pyramids, may reflect numerous calculi, sequelae of renal papillary necrosis, or both. No other acute or concerning abnormalities in the abdomen or pelvis, with evaluation limited by lack of IV contrast.
--- NOTE | 2024-05-19 14:46 | EDPHYS ---
Physician Documentation [facility] Name: Carolin Torres Age: 44 yrs Sex: Female : 1980 Arrival Date: 05/19/2024 Time: 10:40 Bed 12 Private MD: ED Physician Dia Waldron HPI: 05/19 12:56 This 44 yrs old Female presents to ER via Ambulatory with complaints of Low Back Pain. sp3 12:56 44-year-old female with history of hypertension and multiple kidney stones in the past sp3 presents with right flank pain over the last 48 hours now worsening. Patient believes she is having a kidney stone. She denies any fever, URI symptoms, cough, chest pain, shortness of breath, upper back pain, COVERER symptoms, marsha blood hematuria, anterior abdominal pain, syncope, or any other signs or symptoms on ROS at this time.. 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 - Infectious Disease History:: Denies. - Social history:: Smoking status: Patient denies any tobacco usage or history of. ROS: 12:57 Constitutional: Negative for fever, chills, and weight loss, Eyes: Negative for injury, sp3 pain, redness, and discharge, ENT: Negative for injury, pain, and discharge, Neck: Negative for injury, pain, and swelling, Cardiovascular: Negative for chest pain, palpitations, and edema, Respiratory: Negative for shortness of breath, cough, wheezing, and pleuritic chest pain, MS/Extremity: Negative for injury and deformity, Skin: Negative for injury, rash, and discoloration, Neuro: Negative for headache, weakness, numbness, tingling, and seizure, Psych: Negative for depression, anxiety, suicide ideation, homicidal ideation, and hallucinations, Allergy/Immunology: Negative for hives, rash, and allergies, Endocrine: Negative for neck swelling, polydipsia, polyuria, polyphagia, and marked weight changes, Hematologic/Lymphatic: Negative for swollen nodes, abnormal bleeding, and unusual bruising, 12:57 All other systems are negative, Exam: 12:57 Constitutional: This is a well developed, well nourished patient who is awake, alert, sp3 and in no acute distress. Head/Face: Normocephalic, atraumatic. Eyes: Pupils equal round and reactive to light, extra-ocular motions intact. Lids and lashes normal. Conjunctiva and sclera are non-icteric and not injected. Cornea within normal limits. Periorbital areas with no swelling, redness, or edema. Neck: Trachea midline, no thyromegaly or masses palpated, and no cervical lymphadenopathy. Supple, full range of motion without nuchal rigidity, or vertebral point tenderness. No Meningismus. Chest/axilla: Normal chest wall appearance and motion. Nontender with no deformity. No lesions are appreciated. Cardiovascular: Regular rate and rhythm with a normal S1 and S2. No gallops, murmurs, or rubs. Normal PMI, no JVD. No pulse deficits. Respiratory: Lungs have equal breath sounds bilaterally, clear to auscultation and percussion. No rales, rhonchi or wheezes noted. No increased work of breathing, no retractions or nasal flaring. Abdomen/GI: Soft, non-tender, with normal bowel sounds. No distension or tympany. No guarding or rebound. No evidence of tenderness throughout. Skin: Warm, dry with normal turgor. Normal color with no rashes, no lesions, and no evidence of cellulitis. MS/ Extremity: Pulses equal, no cyanosis. Neurovascular intact. Full, normal range of motion. Neuro: Awake and alert, GCS 15, oriented to person, place, time, and situation. Cranial nerves II-XII grossly intact. Motor strength 5/5 in all extremities. Sensory grossly intact. Cerebellar exam normal. Normal gait. Psych: Awake, alert, with orientation to person, place and time. Behavior, mood, and affect are within normal limits. 12:57 Back: Right CVA tenderness noted., Vital Signs: 10:46 BP 154 / 110; Pulse 75; Resp 18; Temp 97.1; Pulse Ox 100% on R/A; Weight 70.31 kg; ll1 Height 5 ft. 1 in. ; Pain 10/10; 13:30 BP 132 / 75; Pulse 81; Resp 16; Pulse Ox 100% on R/A; Pain 8/10; iw 14:50 BP 128 / 78; Pulse 78; Resp 18 S; Pulse Ox 98% on R/A; ha1 15:50 BP 124 / 77; Pulse 80; Resp 18 S; Pulse Ox 98% ; ha1 16:45 BP 127 / 79; Pulse 82; Resp 17 S; Pulse Ox 99% on R/A; ha1 10:46 Body Mass Index 29.29 (70.31 kg, 154.94 cm) ll1 10:46 Pain Scale: Adult ll1 13:30 Pain Scale: Adult iw MDM: 10:47 Medical Screening Exam initiated sp3 12:58 Data reviewed: vital signs, nurses notes, old medical records, lab test result(s), sp3 radiologic studies. ED course: 44-year-old female with right flank pain in the setting of prior kidney stones. Differential diagnosis includes ureterolithiasis/kidney stone spectrum, UTI/pyelonephritis spectrum, other GI pathology, musculoskeletal, among others. I am not highly suspicious of COVERER pathology or aortic/vascular pathology. Workup will include CT scan of the abdomen pelvis noncontrast kidney stone protocol, general labs, UA, and treatment with IV fluids, IV Dilaudid, IV Zofran and general supportive care. Disposition pending workup and patient course.. 14:44 ED course: 18,000 WBC count and no uropathy on CT. Will admit for pyelonephritis, pain sp3 control and hydration.. 05/19 10:55 Order name: Urinalysis w/ reflexes; Complete Time: 14:29 [facility] 05/19 10:55 Order name: Test, Urine; Complete Time: 14:29 [facility] 05/19 12:41 Order name: CBC with Diff; Complete Time: 14:29 3 05/19 12:41 Order name: CMP; Complete Time: 14:29 3 05/19 12:41 Order name: Lipase; Complete Time: 14:29 3 05/19 12:51 Order name: Urine Culture [facility] 05/19 14:39 Order name: Blood Culture Adult (2) [facility] 05/19 12:41 Order name: CT Abd/Pelvis - Without Contrast; Complete Time: 14:32 3 05/19 12:41 Order name: IV Saline Lock; Complete Time: 13:04 3 05/19 12:41 Order name: Labs collected and sent; Complete Time: 13:05 sp3 Administered Medications: 13:37 Drug: TORadol - Ketorolac IVP 15 mg IVP once Route: IVP; Site: right antecubital; iw 14:00 Follow up: Response: No adverse reaction; Marked relief of symptoms ha1 13:37 Drug: Ondansetron IVP 4 mg IVP once; over 2 minutes Route: IVP; Site: right antecubital;iw 14:00 Follow up: Response: No adverse reaction; Marked relief of symptoms ha1 13:37 Drug: NS 0.9% IV 1000 ml IV at 1 bolus Per protocol; to be given as a bolus over 60 iw minutes Route: IV; Rate: 1 bolus; Site: right antecubital; 17:10 Follow up: Response: No adverse reaction; IV Status: Completed infusion; IV Intake: ha1 1000ml 13:37 Drug: HYDROmorphone IVP 1 mg IVP once Route: IVP; Site: right antecubital; iw 14:10 Follow up: Response: No adverse reaction; Marked relief of symptoms; Pain is decreased ha1 15:11 Drug: levofloxacin IVPB 500 mg 100 ml IVPB once over 60 mins Volume: 100 ml; Route: ha1 IVPB; Infused Over: 60 mins; Site: right antecubital; 16:20 Follow up: Response: No adverse reaction; IV Status: Completed infusion; IV Intake: ha1 100ml Disposition Summary: 05/19/24 14:45 Hospitalization Ordered Notes: Hospitalization Status: Observation sp3 Provider: Marcos Harden sp3 [facility] sp3 Condition: Stable sp3 Problem: an acute exacerbation sp3 Symptoms: have worsened sp3 Bed/Room Type: Standard sp3 Room Assignment: 232(05/19/24 16:13) sp Diagnosis - Pyelonephritis, flank pain sp3 Forms: - Medication Reconciliation Form sp3 - SBAR form sp3 - Leadership Thank You Letter sp3 Signatures: Dispatcher [employer] Luz Major Irene, RN RN iw Singh Gorman RN RN ll1 Dia Waldron MD MD sp3 Talita Matthews RN RN ha1 Corrections: (The following items were deleted from the chart) 14:39 14:39 BLOOD CULTURE*+[id number].BRZ ordered. EDMS EDMS 16:13 14:45 sp3 sp
--- NOTE | 2024-05-19 14:46 | ER ---
Nurse's Notes [facility] Name: Carolin Torres Age: 44 yrs Sex: Female : 1980 Arrival Date: 05/19/2024 Time: 10:40 Bed 12 Private MD: Diagnosis: Pyelonephritis, flank pain Presentation: 05/19 10:46 Chief complaint: Patient states: R lower back pain since last night. N/V started today. ll1 Coronavirus screen: Client denies travel out of the [place] in the last 14 days. At this time, the client does not indicate any symptoms associated with coronavirus-19. Ebola Screen: Patient denies travel to an Ebola-affected area in the 21 days before illness onset. Initial Sepsis Screen: Does the patient meet any 2 criteria? No. Patient's initial sepsis screen is negative. Does the patient have a suspected source of infection? No. Patient's initial sepsis screen is negative. Risk Assessment: Do you want to hurt yourself or someone else? Patient reports no desire to harm self or others. Onset of symptoms was May 18, 2024. 10:46 Method Of Arrival: Ambulatory ll1 10:46 Acuity: NANCI 3 ll1 Triage Assessment: 10:56 General: Appears uncomfortable, Behavior is calm, cooperative, appropriate for age. ll1 General: Denies fever. Pain: Complains of pain in R lower back Pain currently is 10 out of 10 on a pain scale. Quality of pain is described as aching. Neuro: No deficits noted. : Reports pain in right in lower back since last night had to force urine stream this morning. 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 - Infectious Disease History:: Denies. - Social history:: Smoking status: Patient denies any tobacco usage or history of. Screenin:58 [facility] ED Fall Risk Assessment (Adult) History of falling in the last 3 months, ll1 including since admission No falls in past 3 months (0 pts) Confusion or Disorientation No (0 pts) Intoxicated or Sedated No (0 pts) Impaired Gait No (0 pts) Mobility Assist Device Used No (0 pt) Altered Elimination No (0 pt) Score/Fall Risk Level 0 - 2 = Low Risk Maintained a safe environment, Hourly rounding (assess needs \T\ fall precautionary measures) done. Abuse screen: Denies threats or abuse. Nutritional screening: No deficits noted. Tuberculosis screening: No symptoms or risk factors identified. Assessment: 12:10 Reassessment: No changes from previously documented assessment. Patient and/or family ll1 updated on plan of care and expected duration. Pain level reassessed. Patient is alert, oriented x 3, equal unlabored respirations, skin warm/dry/pink. 13:00 General: Appears uncomfortable, Behavior is calm, cooperative. Pain: Complains of pain iw in back. Neuro: Level of Consciousness is awake, alert, obeys commands, Oriented to person, place, time, situation, Moves all extremities. Full function. Respiratory: Respiratory effort is even, unlabored, Respiratory pattern is regular. GI: Reports nausea. Derm: Skin is intact, is healthy with good turgor. 14:50 Reassessment: Patient and/or family updated on plan of care and expected duration. Pain ha1 level reassessed. Patient is alert, oriented x 3, equal unlabored respirations, skin warm/dry/pink. pain 7/10. 14:50 GI: Abdomen is round non-distended, obese, Reports lower abdominal pain, nausea. ha1 15:50 Reassessment: Patient and/or family updated on plan of care and expected duration. Pain ha1 level reassessed. Patient is alert, oriented x 3, equal unlabored respirations, skin warm/dry/pink. 16:45 Reassessment: Patient and/or family updated on plan of care and expected duration. Pain ha1 level reassessed. Patient is alert, oriented x 3, equal unlabored respirations, skin warm/dry/pink. Vital Signs: 10:46 BP 154 / 110; Pulse 75; Resp 18; Temp 97.1; Pulse Ox 100% on R/A; Weight 70.31 kg; ll1 Height 5 ft. 1 in. ; Pain 10/10; 13:30 BP 132 / 75; Pulse 81; Resp 16; Pulse Ox 100% on R/A; Pain 8/10; iw 14:50 BP 128 / 78; Pulse 78; Resp 18 S; Pulse Ox 98% on R/A; ha1 15:50 BP 124 / 77; Pulse 80; Resp 18 S; Pulse Ox 98% ; ha1 16:45 BP 127 / 79; Pulse 82; Resp 17 S; Pulse Ox 99% on R/A; ha1 10:46 Body Mass Index 29.29 (70.31 kg, 154.94 cm) ll1 10:46 Pain Scale: Adult ll1 13:30 Pain Scale: Adult iw ED Course: 10:42 Patient arrived in ED. al6 10:43 Arm band placed on. ll1 10:47 Dia Waldron MD is Attending Physician. sp3 10:47 Triage completed. ll1 10:55 Patient placed in an exam room, on a stretcher. ll1 10:55 Notified ED physician of other verbal order for UA and test. ll1 10:56 Singh Gorman RN is Primary Nurse. ll1 10:58 Patient has correct armband on for positive identification. Provided Education on: ER ll1 procedures and process. 10:58 No provider procedures requiring assistance completed. ll1 12:09 Test, Urine Sent. iw 12:09 Urinalysis w/ reflexes Sent. iw 12:12 Notified ED physician of other would like some pain medication. ll1 12:50 Initial lab(s) drawn, by me, sent to lab. Inserted saline lock: 22 gauge in right iw antecubital area, using aseptic technique. Blood collected. Flushed with 10 mL NS. 13:24 CT Abd/Pelvis - Without Contrast In Process Unspecified. EDMS 14:45 Marcos Harden is Hospitalizing Provider. sp3 15:08 Blood Culture Adult (2) Sent. ha1 17:12 Patient admitted, IV remains in place. ha1 Administered Medications: 13:37 Drug: TORadol - Ketorolac IVP 15 mg IVP once Route: IVP; Site: right antecubital; iw 14:00 Follow up: Response: No adverse reaction; Marked relief of symptoms ha1 13:37 Drug: Ondansetron IVP 4 mg IVP once; over 2 minutes Route: IVP; Site: right antecubital;iw 14:00 Follow up: Response: No adverse reaction; Marked relief of symptoms ha1 13:37 Drug: NS 0.9% IV 1000 ml IV at 1 bolus Per protocol; to be given as a bolus over 60 iw minutes Route: IV; Rate: 1 bolus; Site: right antecubital; 17:10 Follow up: Response: No adverse reaction; IV Status: Completed infusion; IV Intake: ha1 1000ml 13:37 Drug: HYDROmorphone IVP 1 mg IVP once Route: IVP; Site: right antecubital; iw 14:10 Follow up: Response: No adverse reaction; Marked relief of symptoms; Pain is decreased ha1 15:11 Drug: levofloxacin IVPB 500 mg 100 ml IVPB once over 60 mins Volume: 100 ml; Route: ha1 IVPB; Infused Over: 60 mins; Site: right antecubital; 16:20 Follow up: Response: No adverse reaction; IV Status: Completed infusion; IV Intake: ha1 100ml Medication: 10:58 VIS not applicable for this client. ll1 Intake: 16:20 IV: 100ml; Total: 100ml. ha1 17:10 IV: 1000ml; Total: 1100ml. ha1 Outcome: 14:45 Decision to Hospitalize by Provider. spTata 17:11 Admitted to Med/surg accompanied by tech, via wheelchair, room 232, with chart, ha1 17:11 Condition: stable 17:11 Instructed on the need for admit, Demonstrated understanding of instructions, 17:12 Patient left the ED. ha1 Signatures: Dispatcher [employer] Carolin Mayo RN RN iw Lewis, Lynsay, RN RN 1 Dia Waldron MD MD sp3 Talita Matthews RN RN ha1 Grace Toribio6
[2024-05-19] MEDS ORDERED: Levofloxacin500mg IV 500 MG/100 ML BAG IV ONE (14:50)
--- NOTE | 2024-05-19 15:33 | P.HP ---
Certification for Inpatient Patient admitted to: Observation With expected LOS: <2 Midnights Patient will require the following post-hospital care: None Practitioner: I am a practitioner with admitting privileges, knowledge of patient current condition, hospital course, and medical plan of care. Services: Services provided to patient in accordance with Admission requirements found in Title 42 Section 412.3 of the Code of Federal Regulations Patient History Date of Service: 05/19/24 Reason for admission: Acute pyelonephritis History of Present Illness: Carolin Torres is a 44 year old female with pmhx hypertension and kidney stones who presents to the ED with chief complaint of lower back pain for last 48 hours. She presented to the ED explaining that she thinks she has a kidney stone. Significant laboratory evaluation WBC 18.8, UA suggestive of infectious process CT abdomen pelvis reports "Stable mild prominence of the right renal pelvis and ureter, with no evidence of a distal obstructing calculus. Stable bilateral symmetric calcific densities along the renal pyramids, may reflect numerous calculi, sequelae of renal papillary necrosis, or both. No other acute or concerning abnormalities in the abdomen or pelvis, with evaluation limited by lack of IV contrast." Carolin be admitted to hospitalist services for further evaluation and treatment of acute right pyelonephritis. Allergies No Known Allergies Allergy (Verified 04/15/23 14:51) Home Medications: Hydroxyzine HCl [Atarax] 10 mg PO BID 04/15/23 Metoprolol Succinate [Toprol Xl*] 25 mg PO BID 04/15/23 Sertraline [Zoloft*] 50 mg PO DAILY 04/15/23 Codeine/APAP [Tylenol #3*] 1 tab PO Q6H PRN #12 tab 04/19/23 - Past Medical/Surgical History Diabetic: No -: HTN - Social History Alcohol use: No CD- Drugs: No Caffeine use: Yes Physical Examination - Studies Laboratory Data (last 24 hrs) 05/19/24 05/19/24 13:03 13:03 WBC 18.80 H Hgb 14.7 Hct 42.5 Plt Count 314 Sodium 135 L Potassium 4.0 BUN 10 Creatinine 0.88 Glucose 112 H Total Bilirubin 0.5 AST 20 ALT 23 Alkaline Phosphatase 94 Lipase 24 Assessment and Plan - Plan Assessment and plan Acute right pyelonephritis in a patient with history of kidney stones Leukocytosis Urinary tract infection -WBC 18.8 -IV fluid -IV antibiotic -Pain control -Antiemetics -Follow urine culture Hypertension -Continue home medications when appropriate DVT PPx Lovenox Full code LOS 2 days Discharge Plan: Home Plan to discharge in: 48 Hours - Advance Directives Does patient have a Living Will: No Does patient have a Durable POA for Healthcare: No
[2024-05-19] MEDS: ACETAMINOPHEN 325 MG TABLET PO PRN (16:17)
[2024-05-19] MEDS: NA CHLORIDE 0.9% 1,000 ML IV SCH (16:17)
--- NOTE | 2024-05-19 16:49 | P.HP ---
Certification for Inpatient Patient admitted to: Inpatient With expected LOS: >2 Midnights Practitioner: I am a practitioner with admitting privileges, knowledge of patient current condition, hospital course, and medical plan of care. Services: Services provided to patient in accordance with Admission requirements found in Title 42 Section 412.3 of the Code of Federal Regulations Patient History Date of Service: 05/19/24 Reason for admission: Right flank pain History of Present Illness: 44 year old woman with pmhx hypertension and kidney stones presented the ED with chief complaint of lower back pain of 2 days duration. Symptoms started past right flank pain, followed by episodes of nausea and vomiting 24 hours later. Patient denies any fever. She has a history of kidney stones status post extracorporeal lithotripsy by Dr. Mills in April 2023. Patient denies any fever. Workup in the emergency department suggest the presence of UTI. She has leukocytosis but does not meet for criteria for sepsis. CT abdomen pelvis reports "Stable mild prominence of the right renal pelvis and ureter, with no evidence of a distal obstructing calculus. Stable bilateral symmetric calcific densities along the renal pyramids, may reflect numerous calculi, sequelae of renal papillary necrosis, or both. Patient admitted to hospitalist services for further evaluation and treatment of acute right pyelonephritis. Allergies No Known Allergies Allergy (Verified 04/15/23 14:51) Home Medications: Hydroxyzine HCl [Atarax] 10 mg PO BID 04/15/23 Metoprolol Succinate [Toprol Xl*] 25 mg PO BID 04/15/23 Sertraline [Zoloft*] 50 mg PO DAILY 04/15/23 Codeine/APAP [Tylenol #3*] 1 tab PO Q6H PRN #12 tab 04/19/23 - Past Medical/Surgical History Diabetic: No -: HTN -: Nephrolithiasis -: Extracorporal lithotripsy - Family History Mother -: Cancer (Breast cancer), Other (see notes) (Maternal aunt had colon cancer) - Social History Alcohol use: No CD- Drugs: No Caffeine use: Yes Review of Systems Other: Patient denies any diarrhea, denied constipation. She reports abdominal pain She denies any headache. She denies any chest pain or shortness of breath. Except as documented, all other systems reviewed and negative. Physical Examination - Physical Exam General: Alert, In no apparent distress, Oriented x3 HEENT: Mucous membr. moist/pink, Sclerae nonicteric Neck: Supple, JVD not distended Respiratory: Clear to auscultation bilaterally, Normal air movement Cardiovascular: No edema, Regular rate/rhythm, Normal S1 S2, No murmurs Capillary refill: <2 Seconds Gastrointestinal: Normal bowel sounds, Soft and benign, Non-distended, No tenderness Musculoskeletal: No swelling, Tenderness (Right costovertebral angle tenderness) Integumentary: No rashes, No cyanosis Neurological: Normal speech, Normal strength at 5/5 x4 extr, Cranial nerves 3-12 intact Lymphatics: No axilla or inguinal lymphadenopathy - Studies Laboratory Data (last 24 hrs) 05/19/24 05/19/24 13:03 13:03 WBC 18.80 H Hgb 14.7 Hct 42.5 Plt Count 314 Sodium 135 L Potassium 4.0 BUN 10 Creatinine 0.88 Glucose 112 H Total Bilirubin 0.5 AST 20 ALT 23 Alkaline Phosphatase 94 Lipase 24 Assessment and Plan - Problems (Diagnosis) (1) Acute pyelonephritis Current Visit: Yes Status: Acute (2) Bilateral nephrolithiasis Current Visit: Yes Status: Acute (3) Hypertension Current Visit: Yes Status: Acute - Plan Acute pyelonephritis Nephrolithiasis Patient with complicated UTI. Admit to the medical floor. Prior urine cultures have grown E. coli Start IV Rocephin Follow urine culture and blood cultures Analgesics as needed Aggressive IV hydration. No obstructive uropathy. Patient to follow-up with Dr. Elena as outpatient for further management of nephrolithiasis. Essential hypertension Hold home dose metoprolol for now. Monitor BP and restart metoprolol as needed. DVT prophylaxis: Lovenox Advanced directive: Full code. - Advance Directives Does patient have a Living Will: No Does patient have a Durable POA for Healthcare: No
[2024-05-19] MEDS: MORPHINE 2 MG/ML SYR IV PRN (18:59)
[2024-05-19] MEDS: ONDANSETRON 4 MG/2 ML VIAL IV PRN (18:59)
[2024-05-20 05:20] LABS: Absolute Basophils 0.1 K/uL (0-0.5); Absolute Eosinophils 0.1 K/uL (0-0.5); Absolute Lymphocytes (CBC) 2.6 K/uL (0.7-4.9); Absolute Monocytes 0.6 K/uL (0.1-1.3); Absolute Neutrophil 6.4 K/uL (1.8-8.0); Basophils % 0.5 % (0-1.3); Eosinophils % 1.2 % (0-4.4); Hematocrit 39.5 % (36.0-45.0); Hemoglobin 13.6 g/dL (12.0-15.0); MCH 30.2 pg (27.0-35.0); MCHC 34.4 g/dL (32.0-36.0); MCV 87.6 fL (80-100); MPV 7.5 fL (7.6-11.3); Monocytes % 6.2 % (3.3-12.3); Neutrophils % 65.1 % (41.7-73.7); Platelets 309 thou/uL (152-406); Red Cell Distribution Width 13.3 % (12.1-15.2)
[2024-05-20 05:39] LABS: Anion Gap 7.2 mEq/L (5.0-15.0); Phosphorus 2.4 mg/dL (2.5-4.9); Potassium 4.2 mEq/L (3.5-5.1)
[2024-05-20] MEDS: CEFTRIAXONE 2,000 MG in NA CHLORIDE 0.9% 100 ML IV SCH (09:04)
[2024-05-20] MEDS: HYDROCODONE/APAP 5/325 MG TAB PO PRN (09:38)
[2024-05-20] MEDS: INFLUENZA VACCINE (for 6+ mo) 0.5 ML DOSE IMVAC ONE (10:00)
[2024-05-20] MEDS: HYDROCODONE/APAP 10/325 TAB PO PRN (14:10)
--- NOTE | 2024-05-20 15:48 | P.PN ---
Subjective Date of Service: 05/20/24 Chief Complaint: Right flank pain Patient states she feels better today with less flank pain. She states her appetite is also improving. No fever since admission. Physical Examination - Vital Signs Temperature: 97.8 F Blood Pressure: 151/70 Pulse: 50 Respirations: 16 Pulse Ox (%): 96 Assessment And Plan - Current Problems (Diagnosis) (1) Acute pyelonephritis Current Visit: Yes Status: Acute (2) Bilateral nephrolithiasis Current Visit: Yes Status: Acute (3) Hypertension Current Visit: Yes Status: Acute - Plan Physical examination General: Alert and oriented x3, NAD, HEENT: Conjunctiva not pale, anicteric sclera Neck: Supple, no elevated JVD Heart: Heart sounds 1 and 2 normal, regular rhythm, normal rate, no pedal edema Lungs: Clear to auscultation bilaterally, adequate breath sounds bilaterally, no rhonchi or crackles. Abdomen: Soft, nondistended, nontender, normal bowel sounds. Extremities: No tenderness, no deformity Skin: Normal skin turgor, no rash, no nodules or ulcers. Neuro: No focal motor deficit. Normal speech. Psychiatry: Normal mood, no agitation. Acute pyelonephritis Nephrolithiasis Patient with complicated UTI. Prior urine cultures have grown E. coli Urine culture this admission showing mixed growth and GNR Blood cultures: No growth to date. Continue IV Rocephin Follow urine culture and blood cultures Analgesics as needed Continue IV hydration. Patient to follow-up with Dr. Elena as outpatient for further management of nephrolithiasis. Essential hypertension Patient is now hypertensive. Resume metoprolol DVT prophylaxis: Lovenox Advanced directive: Full code.
[2024-05-20] MEDS: METOPROLOL XL 25 MG TAB PO SCH (20:10)
[2024-05-21 06:53] LABS: Anion Gap 7.6 mEq/L (5.0-15.0); Phosphorus 2.6 mg/dL (2.5-4.9); Potassium 4.6 mEq/L (3.5-5.1)
[2024-05-22 15:27] VITALS: BP 150/68; TEMP 97.3; O2SAT 96; BMI 29.2
== END 2024-05-21 11:01 | disposition home or self-care (01) | DRG 690 ==
LOC: ER 10:40 → ERHOLD 16:03 → 2ND 16:52
PROVIDERS: ADMIT Internal Medicine; ATTEND Internal Medicine
DX: N10 Acute pyelonephritis (principal); I10 Essential (primary) hypertension; N20.0 Calculus of kidney; B96.20 Unspecified Escherichia coli [E. coli] as the cause of diseases classified elsewhere; Z90.710 Acquired absence of both cervix and uterus; Z79.899 Other long term (current) drug therapy
CPT/HCPCS: 36415; 74176; 80048; 80053; 81001; 81025; 83690; 83735; 84100; 85025; 87040; 87077; 87086; 87088; 87186; 94760; 96361; 96365; 96375; 99285; J0696; J1171; J2270; J2405; J7030